=== PATIENT | female | born 1985 | race Caucasian/White ===

== ENCOUNTER 2020-12-06 07:45 | Inpatient (IN) ==
[2020-12-06] MEDS ORDERED: OXYTOCIN 30 UNITS/500 ML BAG IV PRN (09:33)
[2020-12-06] MEDS ORDERED: DINOPROSTONE 10 MG INSERT PV ONE (09:33)
[2020-12-06 10:12] LABS: Hematocrit (blood only) 32.8 % (37-47); Hemoglobin 11.3 g/dL (12.0-16.0); Mean Corpuscular Hemoglobin 33.5 pg (25-34); Mean Corpuscular Hgb Conc 34.5 g/dL (32-36); Mean Corpuscular Volume 97.3 fL (80-100); Mean Platelet Volume 9.8 fL (7.4-10.4); Platelet Count 231 K/uL (130-400); RDW Coefficient of Variation 12.8 % (11.5-14.5); RDW Standard Deviation 45.5 fL (36.4-46.3); Red Blood Count 3.37 M/uL (4.2-5.4)
[2020-12-06] MEDS ORDERED: FLUCONAZOLE 50 MG TAB PO ONE (10:24)
[2020-12-06 10:31] LABS: Albumin Level 2.7 gm/dl (3.4-5.0); BUN Creatinine Ratio 14.4 (10-20); Calcium 8.7 mg/dl (8.5-10.1); Creatinine Clr Calc Pharmacy 145.6 ml/min; Est GFR (Non-African American) 122.5 ml/min; Potassium 3.5 mmol/L (3.5-5.1)
[2020-12-06 10:34] LABS: Albumin Globulin Ratio 0.7 (0.9-2); Bilirubin,Total 0.2 mg/dl (0.2-1); Total Protein 6.7 gm/dl (6.4-8.2)
--- NOTE | 2020-12-06 10:41 | History & Physical Report ---
Date of Service December 06, 2020 Assessment & Plan (1) Post-term , 40-42 weeks of gestation: Plan: 35-year-old G1, P0 at 40 weeks and 2 days of gestation presenting for induction of labor, Vital signs stable afebrile, GBS negative, heart rate reassuring, Cervix unfavorable with a ballotable head, Plan to admit, monitor, labs, cervical ripening with Cervidil, Discussed the induction process, what to expect, risks of shoulder dystocia and in details, see HPI, All questions were answered. Admission and Anticipated Discharge Date Admission Date: December 06, 2020 History of Present Illness Primary Care Provider: NO PCP Patient is a 35-year-old G1, P0 at 40 weeks and 2 days of gestation who was scheduled for induction of labor for postdates. She denies contractions, leakage of fluid, vaginal bleeding. She reports good movements. Her has been uncomplicated, GBS is negative. She denies fever, chills, headaches, change in her vision, Covid symptoms. She received 2 doses of COVID-19 vaccine. Her last ultrasound was on December 12 and baby was measuring around 8 pounds 14 ounces. She states her baby has been measuring 2 weeks ahead. We did another bedside ultrasound today, fetus is vertex presentation, occiput posterior, placenta posterior, amniotic fluid volume is normal, heart rate 140s, multiple breathing episodes were seen, estimated weight is 4080 g. Patient is asking about recommendation when to do . We discussed a cog recommendation as elective if estimated weight is more than 5000 g. Discussed with the patient in details about the risk of shoulder dystocia with larger babies, clavicular fracture, nerve injuries, asphyxia/hypoxia. We also discussed risks of as a major surgery, bleeding, infection, injury to surrounding organs like bowels bladder ureters, scarring, adhesions, blood clots in his legs lungs and future risks of multiple C-sections. After long discussion patient decided to proceed with trial of vaginal . We discussed the induction process and what to expect from cervical ripening and labor in details. All questions were answered. Allergies Allergy/AdvReac Type Severity Reaction Status Date / Time amoxicillin Allergy Intermediate Hives Verified 12/06/20 08:07 Home Medications Medication Instructions Recorded Confirmed Type ferrous sulfate 325 mg (65 mg 650 mg PO DAILY 12/06/20 12/06/20 History iron) tablet (Iron (ferrous sulfate)) prenat.vits,shayla,[id number] 1 tab PO DAILY 12/06/20 12/06/20 History Patient History Medical History Anemia affecting in third trimester Surgical History History of colposcopy History of wisdom tooth extraction Family History Father Hyperlipidemia Father Hypertension Social History Smoking Status: Never smoker Second Hand Exposure: No; Do You Dip or Chew Tobacco: No; Tobacco Cessation Education Requested by Patient: No Hx Alcohol Use: No Hx Substance Use: No Preferred Language: Lao Communication Ability: Effective Visual Impairment: Limited Hearing Ability: Normal 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 History of abnormal Pap smears and LEEP procedure. Review of Systems as per Subjective / HPI Physical Exam Constitutional: well developed and well nourished Comfortable, not in acute distress Gastrointestinal (Abdomen): Inspection/Auscultation: abdomen normal to inspection and + abdomen distended (Gravid, Marquis 9 pounds) Genitourinary: normal external appearance Manual OB Exam: + cervical dilation 2 cm, + cervical effacement 40% and + station high (Ballotable head) OB Exam Monitor Tracing: + external uterine monitor used and + category I Results & Data ([facility]) Vital Signs (Past 12 Hours) Vital Signs Temp Pulse Resp BP 12/06/20 08:52 36.6 C 101 H 20 117/69 12/06/20 07:54 101 H 117/69 Laboratory Results Lab Results 12/06/20 12/06/20 12/06/20 Range/Units 08:25 08:25 09:56 WBC 9.60 (4.8-10.8) K/uL RBC 3.37 L (4.2-5.4) M/uL Hgb 11.3 L (12.0-16.0) g/dL Hct 32.8 L (37-47) % MCV 97.3 (80-100) fL MCH 33.5 (25-34) pg MCHC 34.5 (32-36) g/dL RDW Std Deviation 45.5 (36.4-46.3) fL RDW Coeff of Jose Cruz 12.8 (11.5-14.5) % Plt Count 231 (130-400) K/uL MPV 9.8 (7.4-10.4) fL Sodium (136-145) mmol/L Potassium (3.5-5.1) mmol/L Chloride (98-107) mmol/L Carbon Dioxide (21-32) mmol/L Anion Gap (3-11) BUN (7-18) mg/dl Creatinine (0.6-1.2) mg/dl Est Cr Clr Drug Dosing ml/min Est GFR ( Amer) ml/min Est GFR (Non-Af Amer) ml/min BUN/Creatinine Ratio (10-20) Glucose (70-99) mg/dl Calcium (8.5-10.1) mg/dl Total Bilirubin (0.2-1) mg/dl AST (15-37) U/L ALT (12-78) U/L Alkaline Phosphatase (45-117) U/L Total Protein (6.4-8.2) gm/dl Albumin (3.4-5.0) gm/dl Globulin (2.5-4.0) gm/dl Albumin/Globulin Ratio (0.9-2) COVID-19 [facility] SARS-CoV-2, RNA, NAAT NEGATIVE (NEGATIVE) 12/06/20 Range/Units 09:56 WBC (4.8-10.8) K/uL RBC (4.2-5.4) M/uL Hgb (12.0-16.0) g/dL Hct (37-47) % MCV (80-100) fL MCH (25-34) pg MCHC (32-36) g/dL RDW Std Deviation (36.4-46.3) fL RDW Coeff of Jose Cruz (11.5-14.5) % Plt Count (130-400) K/uL MPV (7.4-10.4) fL Sodium 138 (136-145) mmol/L Potassium 3.5 (3.5-5.1) mmol/L Chloride 109 H (98-107) mmol/L Carbon Dioxide 22 (21-32) mmol/L Anion Gap 7.0 (3-11) BUN 8 (7-18) mg/dl Creatinine 0.56 L (0.6-1.2) mg/dl Est Cr Clr Drug Dosing 145.6 ml/min Est GFR ( Amer) 142.0 ml/min Est GFR (Non-Af Amer) 122.5 ml/min BUN/Creatinine Ratio 14.4 (10-20) Glucose 80 (70-99) mg/dl Calcium 8.7 (8.5-10.1) mg/dl Total Bilirubin 0.2 (0.2-1) mg/dl AST 19 (15-37) U/L ALT 20 (12-78) U/L Alkaline Phosphatase 125 H (45-117) U/L Total Protein 6.7 (6.4-8.2) gm/dl Albumin 2.7 L (3.4-5.0) gm/dl Globulin 4.0 (2.5-4.0) gm/dl Albumin/Globulin Ratio 0.7 L (0.9-2) COVID-19 Eval Order SARS-CoV-2, RNA, NAAT (NEGATIVE)
[2020-12-06] MEDS ORDERED: BUTORPHANOL TARTRATE 1 MG/ML VIAL IV PRN (14:33)
[2020-12-06] MEDS: LACTATED RINGER'S 1,000 ML IV PRN (17:47)
[2020-12-06] MEDS ORDERED: ONDANSETRON INJ 2 MG/ML 2 ML VIAL IV PRN ×2 (22:37→23:35)
--- NOTE | 2020-12-06 22:37 | Obstetrical Progress Note ---
Date of Service December 06, 2020 Assessment & Plan Admission and Anticipated Discharge Date Admission Date: December 06, 2020 Subjective She needs reevaluated. She has been painful, received Stadol for pain at 6:30 PM and now pain is coming back. Vital signs stable afebrile, heart rate reassuring, category 1, [place] contractions every 2 to 4 minutes. Vaginal exam, cervix is 3 to 4 cm dilated, 50% effaced head at -3 station with a tight bag, She desires to eat something like before epidural, Discussed the findings and what to expect and offered her epidural and she accepted. Oxytocin augmentation as needed when the contractions spaced out, Continue to monitor closely, All questions were answered. Results & Data ([facility]) Vital Signs (Past 12 Hours) Vital Signs Temp Pulse Resp BP 12/06/20 22:34 97 H 135/78 12/06/20 19:10 36.7 C 18 12/06/20 19:03 81 115/72 12/06/20 15:45 36.7 C 85 16 115/73 12/06/20 12:20 36.8 C 16 12/06/20 12:19 80 102/67 12/06/20 10:52 88 20 119/68
[2020-12-06] MEDS ORDERED: ePHEDrine sulfate 50 MG/ML AMP ONE (23:12)
[2020-12-06] MEDS ORDERED: SODIUM CHLORIDE 0.9% INJ 10 ML VIAL ONE (23:12)
[2020-12-06] MEDS ORDERED: fentaNYL citrate 100 MCG/2 ML VIAL ONE (23:13)
[2020-12-06] MEDS ORDERED: BUPIVACAINE 0.25% 30 ML VIAL ONE (23:13)
[2020-12-06] MEDS ORDERED: fentaNYL 2MCG/ML ROPIVACAINE 1.25MG/ML 100 ML BAG EPI ONE (23:13)
[2020-12-06] MEDS ORDERED: NALOXONE HCL 1 MG in SODIUM CHLORIDE 0.9% 1000ML 1,000 ML IV PRN (23:35)
[2020-12-06] MEDS ORDERED: diphenhydrAMINE 50 MG/ML VIAL IV PRN (23:35)
[2020-12-06] MEDS ORDERED: NALOXONE HCL 0.4 MG/1 ML VIAL/CARP IV PRN (23:35)
[2020-12-06] MEDS ORDERED: NALBUPHINE HCL INJ 10 MG/ML AMP IV PRN (23:35)
[2020-12-06] MEDS ORDERED: ePHEDrine sulfate 50 MG/ML AMP IV PRN (23:35)
--- NOTE | 2020-12-06 23:37 | Anesthesiology Consultation ---
Date of Service December 06, 2020 Assessment & Plan (1) Encounter for pre-operative examination: Chart Review Chart Review: Patient NOT seen in Pre Admission Testing and Acceptable Risk for Labor Epidural Consults Requested none History Height/Weight Height: 5 ft 2 in Weight: 86.183 kg Allergies Allergy/AdvReac Type Severity Reaction Status Date / Time amoxicillin Allergy Intermediate Hives Verified 12/06/20 08:07 pineapple Allergy Hives Verified 12/06/20 22:48 Medications Home Medications Medication Instructions Recorded Confirmed Last Taken ferrous sulfate 325 mg (65 mg 650 mg PO DAILY 12/06/20 12/06/20 12/04/20 18:30 iron) tablet (Iron (ferrous sulfate)) prenat.vits,shayla,[id number]-[id number] 1 tab PO DAILY 12/06/20 12/06/20 12/04/20 18:30 Active Medications Generic Name Dose Route Start Last Admin Trade Name Freq PRN Reason Stop Dose Admin Butorphanol Tartrate 1 mg 12/06/20 14:33 12/06/20 17:42 Butorphanol Tartrate 1 Mg/Ml Vial IV 01/05/21 14:32 1 mg Q3HWA PRN Administration Pain Lactated Ringer's 1,000 mls @ 150 mls/hr 12/06/20 09:33 12/06/20 23:30 Lr IV 12/08/20 09:32 150 mls/hr .[id number] PRN Infusion L&D Protocol Protocol Past Medical History Medical History (Updated 12/06/20 @ 23:36 by Christopher Craig MD) Anemia affecting in third trimester Encounter for pre-operative examination Exercise / Class Metabolic Activity II 4-5 Yardwork/Stairs/Walk up hill Past Family History Family History Father Hyperlipidemia Father Hypertension Past Surgical History Surgical History History of colposcopy History of wisdom tooth extraction Past Anesthesia History No Hx of Anesthesia Complications and No Family Hx of Anesthesia Complications History of PONV No Hx of PONV and No Hx of Motion Sickness Social History Smoking Status: Never smoker Do You Dip or Chew Tobacco: No Hx Alcohol Use: No Hx Substance Use: No substance use type: does not use Physical Exam Vital Signs Last Vital Signs Temp 36.7 C 12/06/20 22:35 Pulse 107 H 12/07/20 00:20 Resp 18 12/06/20 22:35 BP 117/70 12/07/20 00:20 Pulse Ox 96 12/07/20 00:18 Testing Laboratory Results 12/06/20 09:56 12/06/20 09:56 Blood Type B Positive 12/06/20 19:07 Antibody Screen NEGATIVE 12/06/20 19:07
[2020-12-07] MEDS ORDERED: OXYTOCIN 30 UNITS/500 ML BAG IV PRN (00:26)
[2020-12-07] MEDS: fentaNYL 2MCG/ML ROPIVACAINE 1.25MG/ML 100 ML BAG EPI PRN ×3 (00:32→15:39)
[2020-12-07] MEDS: LACTATED RINGER'S 1,000 ML IV PRN ×3 (02:37→15:40)
--- NOTE | 2020-12-07 07:45 | Obstetrical Progress Note ---
Date of Service December 07, 2020 Assessment & Plan Admission and Anticipated Discharge Date Admission Date: December 06, 2020 Subjective Patient is reevaluated She is comfortable with epidural FHR had been categ I [place] ctxs q 2-3 min, Pitocin is at 9 miu/min VE: 4/ 80%/ -2, bulging bag, AROM'd, clear fluid Continue to monitor closely Will sign out to Dr Slaughter Results & Data ([facility]) Vital Signs (Past 12 Hours) Vital Signs Temp Pulse Resp BP Pulse Ox 12/07/20 07:38 91 H 97 12/07/20 07:37 80 103/57 L 12/07/20 07:33 88 96 12/07/20 07:28 80 97 12/07/20 07:24 80 94 12/07/20 07:23 79 95 12/07/20 07:22 89 116/63 12/07/20 07:18 93 H 97 12/07/20 07:13 90 98 12/07/20 07:08 109 H 98 12/07/20 07:07 98 H 114/69 12/07/20 07:06 103 H 120/67 12/07/20 07:03 95 H 97 12/07/20 07:01 90 94 12/07/20 06:58 84 95 12/07/20 06:53 105 H 96 12/07/20 06:50 102 H 110/69 12/07/20 06:48 92 H 95 12/07/20 06:43 93 H 95 12/07/20 06:38 86 95 12/07/20 06:35 99 H 108/62 12/07/20 06:33 83 96 12/07/20 06:32 83 94 12/07/20 06:28 90 95 12/07/20 06:24 87 94 12/07/20 06:23 91 H 95 12/07/20 06:22 93 H 116/69 12/07/20 06:18 85 94 12/07/20 06:16 86 94 12/07/20 06:13 90 95 12/07/20 06:11 86 93 12/07/20 06:08 95 H 96 12/07/20 06:05 101 H 122/72 12/07/20 06:03 108 H 97 12/07/20 05:58 89 95 12/07/20 05:57 84 93 12/07/20 05:53 98 H 95 12/07/20 05:52 93 H 115/72 12/07/20 05:51 84 94 12/07/20 05:48 89 94 12/07/20 05:46 86 94 12/07/20 05:43 83 95 12/07/20 05:39 89 94 12/07/20 05:38 86 94 12/07/20 05:36 100 H 124/69 12/07/20 05:34 92 H 94 12/07/20 05:33 92 H 18 95 12/07/20 05:28 93 H 94 12/07/20 05:27 102 H 94 12/07/20 05:23 99 H 94 12/07/20 05:20 84 113/66 12/07/20 05:19 83 94 12/07/20 05:18 108 H 95 12/07/20 05:13 86 96 12/07/20 05:12 89 94 12/07/20 05:08 101 H 95 12/07/20 05:06 86 94 12/07/20 05:05 96 H 111/66 12/07/20 05:03 95 H 94 12/07/20 05:00 89 94 12/07/20 04:58 91 H 94 12/07/20 04:54 86 94 12/07/20 04:53 100 H 95 12/07/20 04:50 104 H 18 111/63 12/07/20 04:48 90 93 12/07/20 04:43 105 H 94 12/07/20 04:41 98 H 94 12/07/20 04:38 89 94 12/07/20 04:37 97 H 107/66 12/07/20 04:36 95 H 94 12/07/20 04:33 96 H 95 12/07/20 04:30 91 H 94 12/07/20 04:28 96 H 95 12/07/20 04:23 92 H 96 12/07/20 04:21 93 H 126/70 12/07/20 04:18 103 H 18 95 12/07/20 04:17 86 94 12/07/20 04:13 94 H 95 12/07/20 04:10 90 94 12/07/20 04:08 89 95 12/07/20 04:07 94 H 117/70 12/07/20 04:03 94 H 96 12/07/20 03:58 95 H 96 12/07/20 03:53 99 H 97 12/07/20 03:52 36.8 C 18 12/07/20 03:51 96 H 166/75 H 12/07/20 03:48 97 H 100 12/07/20 03:43 98 H 97 12/07/20 03:38 90 93 12/07/20 03:36 81 107/59 L 12/07/20 03:34 89 94 12/07/20 03:33 87 94 12/07/20 03:28 88 94 12/07/20 03:26 84 94 12/07/20 03:23 88 95 12/07/20 03:21 89 107/59 L 94 12/07/20 03:18 84 93 12/07/20 03:13 77 94 12/07/20 03:09 78 94 12/07/20 03:08 77 94 12/07/20 03:06 80 98/56 L 12/07/20 03:03 83 94 12/07/20 03:00 18 12/07/20 02:58 89 94 12/07/20 02:53 91 H 95 12/07/20 02:51 98 H 94 12/07/20 02:50 92 H 93/54 L 12/07/20 02:48 84 94 12/07/20 02:44 91 H 94 12/07/20 02:43 97 H 94 12/07/20 02:39 87 94 12/07/20 02:38 89 95 12/07/20 02:37 89 99/57 L 12/07/20 02:33 98 H 96 12/07/20 02:30 18 12/07/20 02:28 81 94 12/07/20 02:23 80 94 12/07/20 02:22 76 90/54 L 12/07/20 02:21 84 94 12/07/20 02:18 81 94 12/07/20 02:14 78 94 12/07/20 02:13 82 94 12/07/20 02:08 87 94 12/07/20 02:06 99 H 94 12/07/20 02:05 94 H 93/55 L 12/07/20 02:03 98 H 94 12/07/20 02:00 92 H 94 12/07/20 01:58 95 H 94 12/07/20 01:53 94 H 94 12/07/20 01:50 100 H 100/58 L 12/07/20 01:48 91 H 94 12/07/20 01:47 87 94 12/07/20 01:43 90 95 12/07/20 01:39 92 H 94 12/07/20 01:38 86 94 12/07/20 01:35 96 H 99/53 L 12/07/20 01:34 88 94 12/07/20 01:33 88 95 12/07/20 01:28 89 94 12/07/20 01:23 88 94 12/07/20 01:22 92 H 94 12/07/20 01:20 88 93/54 L 12/07/20 01:18 88 94 12/07/20 01:17 92 H 94 12/07/20 01:13 85 94 12/07/20 01:11 96 H 94 12/07/20 01:08 92 H 94 12/07/20 01:07 98 H 98/54 L 12/07/20 01:03 89 95 12/07/20 01:00 18 12/07/20 00:58 87 93 12/07/20 00:53 91 H 94 12/07/20 00:52 91 H 94 12/07/20 00:50 92 H 96/51 L 12/07/20 00:48 94 H 95 12/07/20 00:46 93 H 94 12/07/20 00:45 18 12/07/20 00:43 90 95 12/07/20 00:38 95 H 96 12/07/20 00:34 94 H 104/59 L 12/07/20 00:33 116 H 96 12/07/20 00:32 94 H 117/69 12/07/20 00:30 102 H 18 116/76 12/07/20 00:28 108 H 117/69 96 12/07/20 00:26 106 H 118/74 12/07/20 00:25 18 12/07/20 00:24 107 H 116/66 12/07/20 00:23 131 H 97 12/07/20 00:20 107 H 117/70 12/07/20 00:18 110 H 96 12/07/20 00:13 114 H 98 12/07/20 00:08 118 H 97 12/07/20 00:03 110 H 98 12/07/20 00:02 111 H 86 L 12/06/20 23:58 110 H 97 12/06/20 23:56 110 H 92 12/06/20 23:53 103 H 97 12/06/20 23:49 111 H 91 12/06/20 23:48 114 H 97 12/06/20 23:43 99 H 96 12/06/20 22:35 36.7 C 18 12/06/20 22:34 97 H 135/78
[2020-12-07] MEDS ORDERED: NURSING L&D Epidural Breakthrough Pain Update ONE (09:40)
[2020-12-07] MEDS ORDERED: BUPIVACAINE 0.25% 30 ML VIAL ONE (09:47)
[2020-12-07] MEDS ORDERED: SODIUM CHLORIDE 0.9% INJ 10 ML VIAL ONE (09:48)
[2020-12-07] MEDS ORDERED: fentaNYL 2MCG/ML ROPIVACAINE 1.25MG/ML 100 ML BAG EPI PRN (09:55)
--- NOTE | 2020-12-07 11:19 | Labor Progress Brief Note ---
Date of Service December 07, 2020 Subjective Patient comfortable on epidural, no complaints at this time Assessment & Plan (1) Post-term , 40-42 weeks of gestation: Plan: Continue oxytocin for augmentation, anticipate Admission and Anticipated Discharge Date Admission Date: December 06, 2020 Physical Exam Physical Exam: FHT: baseline 130-135, mod variability, + accels, variable decels, Chloride: q1-2 min pit on 18 munits/hr Cx: 5/80/-2 Luong inserted by RN Results & Data ([facility]) Vital Signs (Past 12 Hours) Vital Signs Temp Pulse Resp BP Pulse Ox 12/07/20 11:13 100 H 100 12/07/20 11:08 92 H 99 12/07/20 11:03 102 H 98 12/07/20 10:59 37.2 C 101 H 20 122/72 12/07/20 10:58 90 96 12/07/20 10:53 86 97 12/07/20 10:48 87 95 12/07/20 10:45 89 117/70 12/07/20 10:43 88 96 12/07/20 10:38 93 H 97 12/07/20 10:33 92 H 97 12/07/20 10:29 92 H 119/74 12/07/20 10:28 82 96 12/07/20 10:23 81 97 12/07/20 10:18 93 H 97 12/07/20 10:14 82 121/72 12/07/20 10:13 84 97 12/07/20 10:08 99 H 98 12/07/20 10:03 80 96 12/07/20 09:59 85 120/74 12/07/20 09:58 77 128/73 96 12/07/20 09:56 109 H 90/52 L 12/07/20 09:54 98 H 110/72 12/07/20 09:53 111 H 98 12/07/20 09:52 100 H 113/74 12/07/20 09:48 89 97 12/07/20 09:43 90 97 12/07/20 09:38 81 97 12/07/20 09:35 96 H 124/78 12/07/20 09:33 91 H 97 12/07/20 09:28 88 96 12/07/20 09:23 83 96 10/23/21 09:21 87 120/75 12/07/20 09:18 84 96 12/07/20 09:13 84 94 12/07/20 09:08 90 96 12/07/20 09:07 36.9 C 103 H 20 148/85 H 12/07/20 09:03 91 H 97 12/07/20 08:58 84 97 12/07/20 08:53 76 95 12/07/20 08:50 77 95/53 L 12/07/20 08:48 86 97 12/07/20 08:43 79 96 12/07/20 08:38 72 96 12/07/20 08:35 75 95/53 L 12/07/20 08:33 74 96 12/07/20 08:28 76 96 12/07/20 08:23 84 96 12/07/20 08:21 77 102/58 L 12/07/20 08:18 79 97 12/07/20 08:13 81 96 12/07/20 08:08 80 96 12/07/20 08:07 75 100/56 L 12/07/20 08:03 80 97 12/07/20 07:59 77 94 12/07/20 07:58 83 96 12/07/20 07:57 81 97/58 L 12/07/20 07:54 75 94 12/07/20 07:53 76 97 12/07/20 07:48 82 97 12/07/20 07:43 80 96 12/07/20 07:38 91 H 97 12/07/20 07:37 80 103/57 L 12/07/20 07:33 88 96 12/07/20 07:28 80 97 12/07/20 07:24 80 94 12/07/20 07:23 79 95 12/07/20 07:22 89 116/63 12/07/20 07:18 93 H 97 12/07/20 07:13 90 98 12/07/20 07:08 109 H 98 12/07/20 07:07 36.7 C 98 H 20 114/69 12/07/20 07:06 103 H 120/67 12/07/20 07:03 95 H 97 12/07/20 07:01 90 94 12/07/20 06:58 84 95 12/07/20 06:53 105 H 96 12/07/20 06:50 102 H 110/69 12/07/20 06:48 92 H 95 12/07/20 06:43 93 H 95 12/07/20 06:38 86 95 12/07/20 06:35 99 H 108/62 12/07/20 06:33 83 96 12/07/20 06:32 83 94 12/07/20 06:28 90 95 12/07/20 06:24 87 94 12/07/20 06:23 91 H 95 12/07/20 06:22 93 H 116/69 12/07/20 06:18 85 94 12/07/20 06:16 86 94 12/07/20 06:13 90 95 12/07/20 06:11 86 93 12/07/20 06:08 95 H 96 12/07/20 06:05 101 H 122/72 12/07/20 06:03 108 H 97 12/07/20 05:58 89 95 12/07/20 05:57 84 93 12/07/20 05:53 98 H 95 12/07/20 05:52 93 H 115/72 12/07/20 05:51 84 94 12/07/20 05:48 89 94 12/07/20 05:46 86 94 12/07/20 05:43 83 95 12/07/20 05:39 89 94 12/07/20 05:38 86 94 12/07/20 05:36 100 H 124/69 12/07/20 05:34 92 H 94 12/07/20 05:33 92 H 18 95 12/07/20 05:28 93 H 94 12/07/20 05:27 102 H 94 12/07/20 05:23 99 H 94 12/07/20 05:20 84 113/66 12/07/20 05:19 83 94 12/07/20 05:18 108 H 95 12/07/20 05:13 86 96 12/07/20 05:12 89 94 12/07/20 05:08 101 H 95 12/07/20 05:06 86 94 12/07/20 05:05 96 H 111/66 12/07/20 05:03 95 H 94 12/07/20 05:00 89 94 12/07/20 04:58 91 H 94 12/07/20 04:54 86 94 12/07/20 04:53 100 H 95 12/07/20 04:50 104 H 18 111/63 12/07/20 04:48 90 93 12/07/20 04:43 105 H 94 12/07/20 04:41 98 H 94 12/07/20 04:38 89 94 12/07/20 04:37 97 H 107/66 12/07/20 04:36 95 H 94 12/07/20 04:33 96 H 95 12/07/20 04:30 91 H 94 12/07/20 04:28 96 H 95 12/07/20 04:23 92 H 96 12/07/20 04:21 93 H 126/70 12/07/20 04:18 103 H 18 95 12/07/20 04:17 86 94 12/07/20 04:13 94 H 95 12/07/20 04:10 90 94 12/07/20 04:08 89 95 12/07/20 04:07 94 H 117/70 12/07/20 04:03 94 H 96 12/07/20 03:58 95 H 96 12/07/20 03:53 99 H 97 12/07/20 03:52 36.8 C 18 12/07/20 03:51 96 H 166/75 H 12/07/20 03:48 97 H 100 12/07/20 03:43 98 H 97 12/07/20 03:38 90 93 12/07/20 03:36 81 107/59 L 12/07/20 03:34 89 94 12/07/20 03:33 87 94 12/07/20 03:28 88 94 12/07/20 03:26 84 94 12/07/20 03:23 88 95 12/07/20 03:21 89 107/59 L 94 12/07/20 03:18 84 93 12/07/20 03:13 77 94 12/07/20 03:09 78 94 12/07/20 03:08 77 94 12/07/20 03:06 80 98/56 L 12/07/20 03:03 83 94 12/07/20 03:00 18 12/07/20 02:58 89 94 12/07/20 02:53 91 H 95 12/07/20 02:51 98 H 94 12/07/20 02:50 92 H 93/54 L 12/07/20 02:48 84 94 12/07/20 02:44 91 H 94 12/07/20 02:43 97 H 94 12/07/20 02:39 87 94 12/07/20 02:38 89 95 12/07/20 02:37 89 99/57 L 12/07/20 02:33 98 H 96 12/07/20 02:30 18 12/07/20 02:28 81 94 12/07/20 02:23 80 94 12/07/20 02:22 76 90/54 L 12/07/20 02:21 84 94 12/07/20 02:18 81 94 12/07/20 02:14 78 94 12/07/20 02:13 82 94 12/07/20 02:08 87 94 12/07/20 02:06 99 H 94 12/07/20 02:05 94 H 93/55 L 12/07/20 02:03 98 H 94 12/07/20 02:00 92 H 94 12/07/20 01:58 95 H 94 12/07/20 01:53 94 H 94 12/07/20 01:50 100 H 100/58 L 12/07/20 01:48 91 H 94 12/07/20 01:47 87 94 12/07/20 01:43 90 95 12/07/20 01:39 92 H 94 12/07/20 01:38 86 94 12/07/20 01:35 96 H 99/53 L 12/07/20 01:34 88 94 12/07/20 01:33 88 95 12/07/20 01:28 89 94 12/07/20 01:23 88 94 12/07/20 01:22 92 H 94 12/07/20 01:20 88 93/54 L 12/07/20 01:18 88 94 12/07/20 01:17 92 H 94 12/07/20 01:13 85 94 12/07/20 01:11 96 H 94 12/07/20 01:08 92 H 94 12/07/20 01:07 98 H 98/54 L 12/07/20 01:03 89 95 12/07/20 01:00 18 12/07/20 00:58 87 93 12/07/20 00:53 91 H 94 12/07/20 00:52 91 H 94 12/07/20 00:50 92 H 96/51 L 12/07/20 00:48 94 H 95 12/07/20 00:46 93 H 94 12/07/20 00:45 18 12/07/20 00:43 90 95 12/07/20 00:38 95 H 96 12/07/20 00:34 94 H 104/59 L 12/07/20 00:33 116 H 96 12/07/20 00:32 94 H 117/69 12/07/20 00:30 102 H 18 116/76 12/07/20 00:28 108 H 117/69 96 12/07/20 00:26 106 H 118/74 12/07/20 00:25 18 12/07/20 00:24 107 H 116/66 12/07/20 00:23 131 H 97 12/07/20 00:20 107 H 117/70 12/07/20 00:18 110 H 96 12/07/20 00:13 114 H 98 12/07/20 00:08 118 H 97 12/07/20 00:03 110 H 98 12/07/20 00:02 111 H 86 L 12/06/20 23:58 110 H 97 12/06/20 23:56 110 H 92 12/06/20 23:53 103 H 97 12/06/20 23:49 111 H 91 12/06/20 23:48 114 H 97 12/06/20 23:43 99 H 96
--- NOTE | 2020-12-07 15:14 | Labor Progress Brief Note ---
Date of Service December 07, 2020 Subjective Patient comfortable on epidural, increasing pressure. Just checked by nurse Assessment & Plan (1) Post-term , 40-42 weeks of gestation: Plan: Continue oxytocin for augmentation, anticipate Admission and Anticipated Discharge Date Admission Date: December 06, 2020 Physical Exam Physical Exam: FHT: baseline 130-135, mod variability, + accels, no decels, cat 1 tracing [place]: q2-3 min pit at 20 units Cx: 7-8/90%/-2 check by RN Results & Data ([facility]) Vital Signs (Past 12 Hours) Vital Signs Temp Pulse Resp BP Pulse Ox 12/07/20 15:08 104 H 98 12/07/20 15:03 87 98 12/07/20 14:59 36.8 C 96 H 20 103/63 12/07/20 14:58 101 H 98 12/07/20 14:53 116 H 97 12/07/20 14:48 114 H 97 12/07/20 14:45 113 H 137/82 12/07/20 14:43 106 H 95 12/07/20 14:38 104 H 95 12/07/20 14:33 100 H 96 12/07/20 14:31 107 H 126/80 12/07/20 14:29 106 H 94 12/07/20 14:28 98 H 95 12/07/20 14:23 98 H 93 12/07/20 14:18 105 H 94 12/07/20 14:14 112 H 126/81 12/07/20 14:13 109 H 96 12/07/20 14:08 106 H 94 12/07/20 14:06 99 H 94 12/07/20 14:03 102 H 95 12/07/20 14:00 106 H 123/79 12/07/20 13:58 105 H 96 12/07/20 13:54 91 H 94 12/07/20 13:53 101 H 95 12/07/20 13:48 93 H 95 12/07/20 13:44 100 H 115/74 12/07/20 13:43 99 H 94 12/07/20 13:38 105 H 97 12/07/20 13:33 102 H 96 12/07/20 13:31 92 H 119/77 12/07/20 13:28 102 H 95 12/07/20 13:23 101 H 97 12/07/20 13:18 103 H 96 12/07/20 13:15 107 H 126/79 12/07/20 13:13 106 H 96 12/07/20 13:08 102 H 98 12/07/20 13:03 95 H 97 12/07/20 13:00 36.7 C 103 H 20 123/79 12/07/20 12:58 100 H 98 12/07/20 12:53 97 H 98 12/07/20 12:48 98 H 97 12/07/20 12:44 95 H 118/75 12/07/20 12:43 91 H 98 12/07/20 12:38 97 H 97 12/07/20 12:33 91 H 97 12/07/20 12:30 86 127/72 12/07/20 12:28 95 H 100 12/07/20 12:23 103 H 99 12/07/20 12:18 91 H 98 12/07/20 12:14 97 H 120/71 12/07/20 12:13 98 H 98 12/07/20 12:08 88 99 12/07/20 12:03 94 H 99 12/07/20 11:59 86 119/68 12/07/20 11:58 77 99 12/07/20 11:53 86 99 12/07/20 11:48 78 99 12/07/20 11:44 78 102/61 12/07/20 11:43 92 H 99 12/07/20 11:38 95 H 100 12/07/20 11:33 99 H 99 12/07/20 11:30 77 105/61 12/07/20 11:28 89 97 12/07/20 11:23 85 96 12/07/20 11:18 84 98 12/07/20 11:13 100 H 100 12/07/20 11:08 92 H 99 12/07/20 11:03 102 H 98 12/07/20 10:59 37.2 C 101 H 20 122/72 12/07/20 10:58 90 96 12/07/20 10:53 86 97 12/07/20 10:48 87 95 12/07/20 10:45 89 117/70 12/07/20 10:43 88 96 12/07/20 10:38 93 H 97 12/07/20 10:33 92 H 97 12/07/20 10:29 92 H 119/74 12/07/20 10:28 82 96 12/07/20 10:23 81 97 12/07/20 10:18 93 H 97 12/07/20 10:14 82 121/72 12/07/20 10:13 84 97 12/07/20 10:08 99 H 98 12/07/20 10:03 80 96 12/07/20 09:59 85 120/74 12/07/20 09:58 77 128/73 96 12/07/20 09:56 109 H 90/52 L 12/07/20 09:54 98 H 110/72 12/07/20 09:53 111 H 98 12/07/20 09:52 100 H 113/74 12/07/20 09:48 89 97 12/07/20 09:43 90 97 12/07/20 09:38 81 97 12/07/20 09:35 96 H 124/78 12/07/20 09:33 91 H 97 12/07/20 09:28 88 96 12/07/20 09:23 83 96 12/07/20 09:21 87 120/75 12/07/20 09:18 84 96 12/07/20 09:13 84 94 12/07/20 09:08 90 96 12/07/20 09:07 36.9 C 103 H 20 148/85 H 12/07/20 09:03 91 H 97 12/07/20 08:58 84 97 12/07/20 08:53 76 95 12/07/20 08:50 77 95/53 L 12/07/20 08:48 86 97 12/07/20 08:43 79 96 12/07/20 08:38 72 96 12/07/20 08:35 75 95/53 L 12/07/20 08:33 74 96 12/07/20 08:28 76 96 12/07/20 08:23 84 96 12/07/20 08:21 77 102/58 L 12/07/20 08:18 79 97 12/07/20 08:13 81 96 12/07/20 08:08 80 96 12/07/20 08:07 75 100/56 L 12/07/20 08:03 80 97 12/07/20 07:59 77 94 12/07/20 07:58 83 96 12/07/20 07:57 81 97/58 L 12/07/20 07:54 75 94 12/07/20 07:53 76 97 12/07/20 07:48 82 97 12/07/20 07:43 80 96 12/07/20 07:38 91 H 97 12/07/20 07:37 80 103/57 L 12/07/20 07:33 88 96 12/07/20 07:28 80 97 12/07/20 07:24 80 94 12/07/20 07:23 79 95 12/07/20 07:22 89 116/63 12/07/20 07:18 93 H 97 12/07/20 07:13 90 98 12/07/20 07:08 109 H 98 12/07/20 07:07 36.7 C 98 H 20 114/69 12/07/20 07:06 103 H 120/67 12/07/20 07:03 95 H 97 12/07/20 07:01 90 94 12/07/20 06:58 84 95 12/07/20 06:53 105 H 96 12/07/20 06:50 102 H 110/69 12/07/20 06:48 92 H 95 12/07/20 06:43 93 H 95 12/07/20 06:38 86 95 12/07/20 06:35 99 H 108/62 12/07/20 06:33 83 96 12/07/20 06:32 83 94 12/07/20 06:28 90 95 12/07/20 06:24 87 94 12/07/20 06:23 91 H 95 12/07/20 06:22 93 H 116/69 12/07/20 06:18 85 94 12/07/20 06:16 86 94 12/07/20 06:13 90 95 12/07/20 06:11 86 93 12/07/20 06:08 95 H 96 12/07/20 06:05 101 H 122/72 12/07/20 06:03 108 H 97 12/07/20 05:58 89 95 12/07/20 05:57 84 93 12/07/20 05:53 98 H 95 12/07/20 05:52 93 H 115/72 12/07/20 05:51 84 94 12/07/20 05:48 89 94 12/07/20 05:46 86 94 12/07/20 05:43 83 95 12/07/20 05:39 89 94 12/07/20 05:38 86 94 12/07/20 05:36 100 H 124/69 12/07/20 05:34 92 H 94 12/07/20 05:33 92 H 18 95 12/07/20 05:28 93 H 94 12/07/20 05:27 102 H 94 12/07/20 05:23 99 H 94 12/07/20 05:20 84 113/66 12/07/20 05:19 83 94 12/07/20 05:18 108 H 95 12/07/20 05:13 86 96 12/07/20 05:12 89 94 12/07/20 05:08 101 H 95 12/07/20 05:06 86 94 12/07/20 05:05 96 H 111/66 12/07/20 05:03 95 H 94 12/07/20 05:00 89 94 12/07/20 04:58 91 H 94 12/07/20 04:54 86 94 12/07/20 04:53 100 H 95 12/07/20 04:50 104 H 18 111/63 12/07/20 04:48 90 93 12/07/20 04:43 105 H 94 12/07/20 04:41 98 H 94 12/07/20 04:38 89 94 12/07/20 04:37 97 H 107/66 12/07/20 04:36 95 H 94 12/07/20 04:33 96 H 95 12/07/20 04:30 91 H 94 12/07/20 04:28 96 H 95 12/07/20 04:23 92 H 96 12/07/20 04:21 93 H 126/70 12/07/20 04:18 103 H 18 95 12/07/20 04:17 86 94 12/07/20 04:13 94 H 95 12/07/20 04:10 90 94 12/07/20 04:08 89 95 12/07/20 04:07 94 H 117/70 12/07/20 04:03 94 H 96 12/07/20 03:58 95 H 96 12/07/20 03:53 99 H 97 12/07/20 03:52 36.8 C 18 12/07/20 03:51 96 H 166/75 H 12/07/20 03:48 97 H 100 12/07/20 03:43 98 H 97 12/07/20 03:38 90 93 12/07/20 03:36 81 107/59 L 12/07/20 03:34 89 94 12/07/20 03:33 87 94 12/07/20 03:28 88 94 12/07/20 03:26 84 94 12/07/20 03:23 88 95 12/07/20 03:21 89 107/59 L 94 12/07/20 03:18 84 93 12/07/20 03:13 77 94
[2020-12-07] MEDS ORDERED: ACETAMINOPHEN 500 MG TAB PO ONE (18:17)
[2020-12-07] MEDS ORDERED: GENTAMICIN CONSULT ACTIVE PRN (18:22)
--- NOTE | 2020-12-07 18:27 | Labor Progress Brief Note ---
Date of Service December 07, 2020 Subjective Called by RN about maternal fever 38C, tachycardia. Assessment & Plan (1) Chorioamnionitis: Plan: Start IV abx for suspected chorio,. PCN allergy. Gent 5mg/kg 1 time dose, clina 900mg q8h 1gr Tylenol for maternal fever Plan: Anticipate Admission and Anticipated Discharge Date Admission Date: December 06, 2020 Physical Exam Physical Exam: FHT: baseline 160, mod variability, +accles, variable decels [place]: q2-3 min Cx: ant lip/100/0 per RN check Results & Data ([facility]) Vital Signs (Past 12 Hours) Vital Signs Temp Pulse Resp BP Pulse Ox 12/07/20 18:23 116 H 98 12/07/20 18:18 119 H 98 12/07/20 18:15 112 H 125/80 12/07/20 18:13 116 H 97 12/07/20 18:08 131 H 97 12/07/20 18:03 128 H 96 12/07/20 18:00 38.0 C H 122 H 20 121/83 12/07/20 17:58 119 H 96 12/07/20 17:53 113 H 96 12/07/20 17:48 116 H 96 12/07/20 17:45 117 H 120/78 12/07/20 17:43 111 H 96 12/07/20 17:38 111 H 95 12/07/20 17:33 109 H 96 12/07/20 17:30 115 H 120/80 12/07/20 17:28 117 H 97 12/07/20 17:23 106 H 95 12/07/20 17:19 114 H 94 12/07/20 17:18 108 H 95 12/07/20 17:14 108 H 118/78 12/07/20 17:13 102 H 95 12/07/20 17:08 109 H 95 12/07/20 17:07 100 H 94 12/07/20 17:03 96 H 96 12/07/20 17:00 108 H 118/71 12/07/20 16:58 99 H 96 12/07/20 16:53 107 H 97 12/07/20 16:48 110 H 98 12/07/20 16:45 36.5 C 97 H 20 129/80 12/07/20 16:43 118 H 97 12/07/20 16:38 103 H 97 12/07/20 16:33 102 H 97 12/07/20 16:29 113 H 123/77 12/07/20 16:28 101 H 96 12/07/20 16:23 98 H 95 12/07/20 16:18 111 H 98 12/07/20 16:15 100 H 133/83 12/07/20 16:13 102 H 95 12/07/20 16:08 99 H 98 12/07/20 16:03 106 H 97 12/07/20 16:00 100 H 123/78 12/07/20 15:58 98 H 99 12/07/20 15:53 100 H 98 12/07/20 15:48 102 H 98 12/07/20 15:45 106 H 127/81 12/07/20 15:43 101 H 97 12/07/20 15:38 104 H 97 12/07/20 15:33 106 H 97 12/07/20 15:32 117 H 122/75 12/07/20 15:28 98 H 98 12/07/20 15:23 92 H 97 12/07/20 15:18 96 H 98 12/07/20 15:13 98 H 97 12/07/20 15:08 104 H 98 12/07/20 15:03 87 98 12/07/20 14:59 36.8 C 96 H 20 103/63 12/07/20 14:58 101 H 98 12/07/20 14:53 116 H 97 12/07/20 14:48 114 H 97 12/07/20 14:45 113 H 137/82 12/07/20 14:43 106 H 95 12/07/20 14:38 104 H 95 12/07/20 14:33 100 H 96 12/07/20 14:31 107 H 126/80 12/07/20 14:29 106 H 94 12/07/20 14:28 98 H 95 12/07/20 14:23 98 H 93 12/07/20 14:18 105 H 94 12/07/20 14:14 112 H 126/81 12/07/20 14:13 109 H 96 12/07/20 14:08 106 H 94 12/07/20 14:06 99 H 94 12/07/20 14:03 102 H 95 12/07/20 14:00 106 H 123/79 12/07/20 13:58 105 H 96 12/07/20 13:54 91 H 94 12/07/20 13:53 101 H 95 12/07/20 13:48 93 H 95 12/07/20 13:44 100 H 115/74 12/07/20 13:43 99 H 94 12/07/20 13:38 105 H 97 12/07/20 13:33 102 H 96 12/07/20 13:31 92 H 119/77 12/07/20 13:28 102 H 95 12/07/20 13:23 101 H 97 12/07/20 13:18 103 H 96 12/07/20 13:15 107 H 126/79 12/07/20 13:13 106 H 96 12/07/20 13:08 102 H 98 12/07/20 13:03 95 H 97 12/07/20 13:00 36.7 C 103 H 20 123/79 12/07/20 12:58 100 H 98 12/07/20 12:53 97 H 98 12/07/20 12:48 98 H 97 12/07/20 12:44 95 H 118/75 12/07/20 12:43 91 H 98 12/07/20 12:38 97 H 97 12/07/20 12:33 91 H 97 12/07/20 12:30 86 127/72 12/07/20 12:28 95 H 100 12/07/20 12:23 103 H 99 12/07/20 12:18 91 H 98 12/07/20 12:14 97 H 120/71 12/07/20 12:13 98 H 98 12/07/20 12:08 88 99 12/07/20 12:03 94 H 99 12/07/20 11:59 86 119/68 12/07/20 11:58 77 99 12/07/20 11:53 86 99 12/07/20 11:48 78 99 12/07/20 11:44 78 102/61 12/07/20 11:43 92 H 99 12/07/20 11:38 95 H 100 12/07/20 11:33 99 H 99 12/07/20 11:30 77 105/61 12/07/20 11:28 89 97 12/07/20 11:23 85 96 12/07/20 11:18 84 98 12/07/20 11:13 100 H 100 12/07/20 11:08 92 H 99 12/07/20 11:03 102 H 98 12/07/20 10:59 37.2 C 101 H 20 122/72 12/07/20 10:58 90 96 12/07/20 10:53 86 97 12/07/20 10:48 87 95 12/07/20 10:45 89 117/70 12/07/20 10:43 88 96 12/07/20 10:38 93 H 97 12/07/20 10:33 92 H 97 12/07/20 10:29 92 H 119/74 12/07/20 10:28 82 96 12/07/20 10:23 81 97 12/07/20 10:18 93 H 97 12/07/20 10:14 82 121/72 12/07/20 10:13 84 97 12/07/20 10:08 99 H 98 12/07/20 10:03 80 96 12/07/20 09:59 85 120/74 12/07/20 09:58 77 128/73 96 12/07/20 09:56 109 H 90/52 L 12/07/20 09:54 98 H 110/72 12/07/20 09:53 111 H 98 12/07/20 09:52 100 H 113/74 12/07/20 09:48 89 97 12/07/20 09:43 90 97 12/07/20 09:38 81 97 12/07/20 09:35 96 H 124/78 12/07/20 09:33 91 H 97 12/07/20 09:28 88 96 12/07/20 09:23 83 96 12/07/20 09:21 87 120/75 12/07/20 09:18 84 96 12/07/20 09:13 84 94 12/07/20 09:08 90 96 12/07/20 09:07 36.9 C 103 H 20 148/85 H 12/07/20 09:03 91 H 97 12/07/20 08:58 84 97 12/07/20 08:53 76 95 12/07/20 08:50 77 95/53 L 12/07/20 08:48 86 97 12/07/20 08:43 79 96 12/07/20 08:38 72 96 12/07/20 08:35 75 95/53 L 12/07/20 08:33 74 96 12/07/20 08:28 76 96 12/07/20 08:23 84 96 12/07/20 08:21 77 102/58 L 12/07/20 08:18 79 97 12/07/20 08:13 81 96 12/07/20 08:08 80 96 12/07/20 08:07 75 100/56 L 12/07/20 08:03 80 97 12/07/20 07:59 77 94 12/07/20 07:58 83 96 12/07/20 07:57 81 97/58 L 12/07/20 07:54 75 94 12/07/20 07:53 76 97 12/07/20 07:48 82 97 12/07/20 07:43 80 96 12/07/20 07:38 91 H 97 12/07/20 07:37 80 103/57 L 12/07/20 07:33 88 96 12/07/20 07:28 80 97 12/07/20 07:24 80 94 12/07/20 07:23 79 95 12/07/20 07:22 89 116/63 12/07/20 07:18 93 H 97 12/07/20 07:13 90 98 12/07/20 07:08 109 H 98 12/07/20 07:07 36.7 C 98 H 20 114/69 12/07/20 07:06 103 H 120/67 12/07/20 07:03 95 H 97 12/07/20 07:01 90 94 12/07/20 06:58 84 95 12/07/20 06:53 105 H 96 12/07/20 06:50 102 H 110/69 12/07/20 06:48 92 H 95 12/07/20 06:43 93 H 95 12/07/20 06:38 86 95 12/07/20 06:35 99 H 108/62 12/07/20 06:33 83 96 12/07/20 06:32 83 94 12/07/20 06:28 90 95
[2020-12-07] MEDS ORDERED: VANCOMYCIN CONSULT ACTIVE PRN (18:44)
[2020-12-07] MEDS ORDERED: GENTAMICIN SULFATE 320 MG in DEXTROSE 5% 100 ML IV ONE (18:45)
[2020-12-07] MEDS ORDERED: CLINDAMYCIN 900 MG in DEXTROSE 5% 50 ML IV SCH (19:00)
[2020-12-07] MEDS ORDERED: VANCOMYCIN HCL 1,750 MG in SODIUM CHLORIDE 0.9% 500 ML IV ONE (19:00)
[2020-12-07] MEDS ORDERED: PHENYLEPHRINE 100MCG/ML 5ML SYR ONE (19:41)
[2020-12-07] MEDS ORDERED: LIDOCAINE 2%/EPINEPHRINE 1:200,000 20 ML SDV ONE (19:41)
[2020-12-07] MEDS ORDERED: ONDANSETRON INJ 2 MG/ML 2 ML VIAL ONE (19:41)
[2020-12-07] MEDS ORDERED: MoRPHine SULFATE PF 1 MG/ML 10 ML AMP/VIAL ONE (19:42)
[2020-12-07] MEDS ORDERED: CLINDAMYCIN 900 MG in DEXTROSE 5% 50 ML IV STA (19:44)
--- NOTE | 2020-12-07 19:44 | Labor Progress Brief Note ---
Date of Service December 07, 2020 Subjective Comfortable on epidural, no complaints Assessment & Plan (1) Chorioamnionitis: Plan: IV Vanc, gent Add clinda 900 mg IV x1 dose for CS (2) Failure to progress in labor: Plan: Failure to progress/defend. head -2/-3 station. Significant caput to 0 station Patient counseled about Cat II tracing and recommend primary C section. Patient agrees. See op report for counseling note. (3) Category II heart rate tracing during maternal care in third trimester: Admission and Anticipated Discharge Date Admission Date: December 06, 2020 Physical Exam Physical Exam: FHT: baseline 170-175, mod variability no accels, no decels, persisinta cat II, [place] q2-3 min Cx: 9/100/-2 caput ++ to 0 station Results & Data ([facility]) Vital Signs (Past 12 Hours) Vital Signs Temp Pulse Resp BP Pulse Ox 12/07/20 19:33 137 H 97 12/07/20 19:29 107 H 122/70 12/07/20 19:28 106 H 96 12/07/20 19:23 114 H 96 12/07/20 19:18 106 H 97 12/07/20 19:14 104 H 122/74 12/07/20 19:13 106 H 97 12/07/20 19:08 105 H 98 12/07/20 19:03 106 H 98 12/07/20 19:00 36.7 C 109 H 20 122/76 12/07/20 18:58 107 H 98 12/07/20 18:53 111 H 97 12/07/20 18:48 119 H 100 12/07/20 18:45 113 H 121/82 12/07/20 18:43 116 H 99 12/07/20 18:41 117 H 89 L 12/07/20 18:38 120 H 100 12/07/20 18:33 111 H 98 12/07/20 18:30 113 H 130/80 12/07/20 18:28 116 H 98 12/07/20 18:23 116 H 98 12/07/20 18:18 119 H 98 12/07/20 18:15 112 H 125/80 12/07/20 18:13 116 H 97 12/07/20 18:08 131 H 97 12/07/20 18:03 128 H 96 12/07/20 18:00 38.0 C H 122 H 20 121/83 12/07/20 17:58 119 H 96 12/07/20 17:53 113 H 96 12/07/20 17:48 116 H 96 12/07/20 17:45 117 H 120/78 12/07/20 17:43 111 H 96 12/07/20 17:38 111 H 95 12/07/20 17:33 109 H 96 12/07/20 17:30 115 H 120/80 12/07/20 17:28 117 H 97 12/07/20 17:23 106 H 95 12/07/20 17:19 114 H 94 12/07/20 17:18 108 H 95 12/07/20 17:14 108 H 118/78 12/07/20 17:13 102 H 95 12/07/20 17:08 109 H 95 12/07/20 17:07 100 H 94 12/07/20 17:03 96 H 96 12/07/20 17:00 108 H 118/71 12/07/20 16:58 99 H 96 12/07/20 16:53 107 H 97 12/07/20 16:48 110 H 98 12/07/20 16:45 36.5 C 97 H 20 129/80 12/07/20 16:43 118 H 97 12/07/20 16:38 103 H 97 12/07/20 16:33 102 H 97 12/07/20 16:29 113 H 123/77 12/07/20 16:28 101 H 96 12/07/20 16:23 98 H 95 12/07/20 16:18 111 H 98 12/07/20 16:15 100 H 133/83 12/07/20 16:13 102 H 95 12/07/20 16:08 99 H 98 12/07/20 16:03 106 H 97 12/07/20 16:00 100 H 123/78 12/07/20 15:58 98 H 99 12/07/20 15:53 100 H 98 12/07/20 15:48 102 H 98 12/07/20 15:45 106 H 127/81 12/07/20 15:43 101 H 97 12/07/20 15:38 104 H 97 12/07/20 15:33 106 H 97 12/07/20 15:32 117 H 122/75 12/07/20 15:28 98 H 98 12/07/20 15:23 92 H 97 12/07/20 15:18 96 H 98 12/07/20 15:13 98 H 97 12/07/20 15:08 104 H 98 12/07/20 15:03 87 98 12/07/20 14:59 36.8 C 96 H 20 103/63 12/07/20 14:58 101 H 98 12/07/20 14:53 116 H 97 12/07/20 14:48 114 H 97 12/07/20 14:45 113 H 137/82 12/07/20 14:43 106 H 95 12/07/20 14:38 104 H 95 12/07/20 14:33 100 H 96 12/07/20 14:31 107 H 126/80 12/07/20 14:29 106 H 94 12/07/20 14:28 98 H 95 12/07/20 14:23 98 H 93 12/07/20 14:18 105 H 94 12/07/20 14:14 112 H 126/81 12/07/20 14:13 109 H 96 12/07/20 14:08 106 H 94 12/07/20 14:06 99 H 94 12/07/20 14:03 102 H 95 12/07/20 14:00 106 H 123/79 12/07/20 13:58 105 H 96 12/07/20 13:54 91 H 94 12/07/20 13:53 101 H 95 12/07/20 13:48 93 H 95 12/07/20 13:44 100 H 115/74 12/07/20 13:43 99 H 94 12/07/20 13:38 105 H 97 12/07/20 13:33 102 H 96 12/07/20 13:31 92 H 119/77 12/07/20 13:28 102 H 95 12/07/20 13:23 101 H 97 12/07/20 13:18 103 H 96 12/07/20 13:15 107 H 126/79 12/07/20 13:13 106 H 96 12/07/20 13:08 102 H 98 12/07/20 13:03 95 H 97 12/07/20 13:00 36.7 C 103 H 20 123/79 12/07/20 12:58 100 H 98 12/07/20 12:53 97 H 98 12/07/20 12:48 98 H 97 12/07/20 12:44 95 H 118/75 12/07/20 12:43 91 H 98 12/07/20 12:38 97 H 97 12/07/20 12:33 91 H 97 12/07/20 12:30 86 127/72 12/07/20 12:28 95 H 100 12/07/20 12:23 103 H 99 12/07/20 12:18 91 H 98 12/07/20 12:14 97 H 120/71 12/07/20 12:13 98 H 98 12/07/20 12:08 88 99 12/07/20 12:03 94 H 99 12/07/20 11:59 86 119/68 12/07/20 11:58 77 99 12/07/20 11:53 86 99 12/07/20 11:48 78 99 12/07/20 11:44 78 102/61 12/07/20 11:43 92 H 99 12/07/20 11:38 95 H 100 12/07/20 11:33 99 H 99 12/07/20 11:30 77 105/61 12/07/20 11:28 89 97 12/07/20 11:23 85 96 12/07/20 11:18 84 98 12/07/20 11:13 100 H 100 12/07/20 11:08 92 H 99 12/07/20 11:03 102 H 98 12/07/20 10:59 37.2 C 101 H 20 122/72 12/07/20 10:58 90 96 12/07/20 10:53 86 97 12/07/20 10:48 87 95 12/07/20 10:45 89 117/70 12/07/20 10:43 88 96 12/07/20 10:38 93 H 97 12/07/20 10:33 92 H 97 12/07/20 10:29 92 H 119/74 12/07/20 10:28 82 96 12/07/20 10:23 81 97 12/07/20 10:18 93 H 97 12/07/20 10:14 82 121/72 12/07/20 10:13 84 97 12/07/20 10:08 99 H 98 12/07/20 10:03 80 96 12/07/20 09:59 85 120/74 21 09:58 77 128/73 96 12/07/20 09:56 109 H 90/52 L 12/07/20 09:54 98 H 110/72 21 09:53 111 H 98 12/07/20 09:52 100 H 113/74 12/07/ 09:48 89 97 12/07/20 09:43 90 97 12/07/20 09:38 81 97 12/07/20 09:35 96 H 124/78 12/07/20 09:33 91 H 97 12/07/20 09:28 88 96 12/07/20 09:23 83 96 12/07/20 09:21 87 120/75 12/07/20 09:18 84 96 12/07/20 09:13 84 94 12/07/20 09:08 90 96 12/07/20 09:07 36.9 C 103 H 20 148/85 H 12/07/20 09:03 91 H 97 12/07/20 08:58 84 97 12/07/20 08:53 76 95 12/07/20 08:50 77 95/53 L 12/07/20 08:48 86 97 12/07/20 08:43 79 96 12/07/20 08:38 72 96 12/07/20 08:35 75 95/53 L 12/07/20 08:33 74 96 12/07/20 08:28 76 96 12/07/20 08:23 84 96 12/07/20 08:21 77 102/58 L 12/07/20 08:18 79 97 12/07/20 08:13 81 96 21 08:08 80 96 21 08:07 75 100/56 L 12/07/20 08:03 80 97 21 07:59 77 94 21 07:58 83 96 21 07:57 81 97/58 L 12/07/21 07:54 75 94 12/07/21 07:53 76 97 21 07:48 82 97 12/07/20 07:43 80 96
[2020-12-07] MEDS ORDERED: OXYTOCIN 10 UNITS/ML VIAL ONE (20:29)
[2020-12-07] MEDS ORDERED: CARBOPROST TROMETHAMINE 250 MCG/ML AMPUL ONE (20:30)
[2020-12-07] MEDS ORDERED: METHYLERGONOVINE MALEATE 0.2 MG/ML AMP ONE ×2 (20:30→21:02)
[2020-12-07] MEDS: VANCOMYCIN HCL 1,000 MG in SODIUM CHLORIDE 0.9% 250 ML IV SCH (20:32)
[2020-12-07 20:36] LABS: Base Excess Cord Venous Blood -0.5 mEq/L (-7.7-1.9); Cord Venous Blood HCO3 23 mmol/L (18.4-26.8); Cord Venous Blood PCO2 36 mmHg (30.4-57.2); Cord Venous Blood PO2 26 mmHg (14.1-43.3); Cord Venous Blood pH 7.42 (7.20-7.44)
--- NOTE | 2020-12-07 20:47 | Post Operative Brief Note ---
Immediate Post Op Note v1 Date of Surgery December 07, 2020 Pre & Post Diagnosis Operation Date: 12/07/20 19:30 Pre-Op Diagnosis: 1.) Category II FHT Tracing 2.) Chorio 3.) Failure to Progress Post-Op Diagnosis: Same as Pre Op 4. Uterine atony 5. PPH 1000mls I identified the patient and participated in the time-out.: Yes Procedure Operation Date: 12/07/20 19:30 <No data on this case meets the specified criteria> Surgeon Amada Slaughter MD, PhD Oven Technician location and measurement technician x2 Estimated Blood Loss 1,000 Findings See Below A liveborn male at 2018, weight 3634g APGARs 8/9. Intact placenta, 3 vessel cord, cord pH pending Fluids See anaesthesia record Specimens Placenta Drains Luong Catheter Complications None Disposition Accompanied Patient To Recovery: Yes Disposition: L&D Overlapping Procedure I was present for: the critical portions of procedure.
[2020-12-07] MEDS ORDERED: diphenhydrAMINE Capsule 25 MG CAP PO PRN (20:50)
[2020-12-07] MEDS ORDERED: MAGNESIUM HYDROXIDE SUSP 30 ML UDC PO PRN ×2 (20:50→21:27)
[2020-12-07] MEDS ORDERED: diphenhydrAMINE 50 MG/ML VIAL IV PRN ×2 (20:50→21:05)
[2020-12-07] MEDS ORDERED: SENNA 8.6 MG TAB PO PRN ×2 (20:50→21:27)
[2020-12-07] MEDS ORDERED: PROMETHAZINE HCL 25 MG in SODIUM CHLORIDE 0.9% 50 ML IV PRN (20:50)
[2020-12-07] MEDS ORDERED: ONDANSETRON INJ 2 MG/ML 2 ML VIAL IV PRN (20:50)
[2020-12-07] MEDS ORDERED: DIPHTHERIA/TETANUS/PERTUSSIS 0.5 ML SYR/VIAL IM ONE (20:50)
[2020-12-07] MEDS ORDERED: BENZOCAINE 20% AER SPR 82.5 GM CAN EXT PRN ×2 (20:50→21:27)
[2020-12-07] MEDS ORDERED: HYDROCORTISONE ACETATE 25 MG SUPP PR PRN ×2 (20:50→21:27)
[2020-12-07] MEDS ORDERED: SUPERCREAM 0.870% 15 GM JAR EXT PRN ×2 (20:50→21:27)
[2020-12-07] MEDS ORDERED: KETOROLAC 30 MG/ML VIAL IV PRN (20:50)
--- NOTE | 2020-12-07 20:53 | Operative Report ---
Post Operative Report Pre & Post Diagnosis Operation Date: 12/07/20 19:30 Pre-Op Diagnosis: 1. 35 year old 40 3/7 days 2. Failure to progress/failure to decent 3. Persistent Category II FHT Tracing 4. Suspected Chorioamnionitis Post-Op Diagnosis: Same as Pre Op 5. Uterine atony 6. hemorrhage 1000mls I identified the patient and participated in the time-out.: Yes Procedure Operation Date: 12/07/20 19:30 Primary lower transverse section Surgeon Amada Slaughter MD, PhD Veterinary Pathologist a/c tech x2 Estimated Blood Loss 1,000 Findings See Below Liveborn male delivered at 2018 hours, head not engaged in pelvis, OP position, weight 363 4 g or 8 pounds 0 ounces with Apgars 8/9. Intact placenta with three-vessel cord. Cord pH pending. Normal-appearing uterus, normal-appearing bilateral fallopian tubes and ovaries seen at time of surgery Fluids See anesthesia record Specimens Placenta Drains Luong catheter Anesthesia Type Labor Epidural Complications None Indications Persistent category 2 tracing, failure to progress/failure to descend and suspected chorioamnionitis Description of Procedure section was recommended. Risks, benefits and alternatives were discussed including but not limited to infection, bleeding that may require blood products or hysterectomy for life saving measures, injury to surrounding organs including but not limited to bowel, bladder, ureters, tubes and ovaries and/or the baby. Should injury occur it could require longer/additional surgery to repair. Patient was also counselled about risk of DVT/PE, and injury to infant during delivery. The patient stated understanding and desired to proceed. All questions were answered posed by patient. Prior to being taken to the OR, gentamicin 5 mg/kg, clindamycin 900 mg, and vancomycin was given during the surgical procedure. The patient was taken to the operating room where regional anesthesia was found to be adequate. Prior to monitors being removed FHR was 180 bpm with no decelerations. She was then prepared and draped in the usual sterile fashion in the dorsal supine position with a leftward tilt displacing the uterus. Luong was draining to gravity. SCDs were on bilateral lower extremities. A pfannenstiel skin incision was then made with the scalpel and carried through to the underlying layer of fascia. The fascia was incised in the midline and the incision extended laterally with the Hardwick scissors. The superior aspect of the facial incision was then grasped with the Breanne clamps, elevated and the underlying rectus muscles dissected off bluntly. Attention was then turned to the inferior aspect of this incision which in a similar fashion was grasped, elevated with the Breanne clamps and the rectus muscle dissected off bluntly. The rectus muscles were in the midline. The peritoneum identified, grasped with the pick-ups and entered sharply with the Metzenbaum scissors. The peritoneal incision was then extended superiorly and inferiorly with good visualization of the bladder. The bladder blade was inserted and the vesicouterine peritoneum was identified, grasped with the pick-ups, and entered sharply with Metzenbaum scissors. This incision was then extended laterally and the bladder flap created digitally and the bladder blade was reinserted. The lower uterine segment was identified and incised in a transverse fashion with the scalpel. The uterine incision was then extended bluntly laterally. Artificial rupture of membranes demonstrated clear fluid. The bladder blade was removed. The fetus was in cephalic, OP presentation. The 's head was noted to not be well engaged in patients pelvis and delivered atraumatically. The anterior shoulders were delivered followed by the posterior shoulders then the remainder of the body. The infant's mouth and nose were bulb suctioned. The umbilical cord was clamped times two and cut. The infant was handed off to the awaiting peds staff. A male was delivered weighing 3634 g with APGARS of 8 at 1 minute and 9 at 5 minutes. The was taken to the recovery room for transition. Cord blood gases were obtained. The placenta was removed with manually. 30 units of oxytocin were added to IVF and allowed to run freely. The uterus was exteriorized and cleared of all clots and debris. There was ongoing uterine atony noted. Patient was given 1 dose of Methergine IM. The uterine incision was inspected and found to be without any extensions and was repaired with 0 Vicryl) in a running, locked fashion. A second imbricating layer was performed. Upon inspection, the repaired hysterotomy was found to be hemostatic. The uterus was firm and returned to the abdomen. The gutters were cleared of all clots and debris. The peritoneum was closed with 2-0 Vicryl in a running fashion. The fascia was reapproximated with 0 Vicryl in a running fashion. The subcutaneous layer was closed with 2-0 Vicryl in a running fashion. The skin was closed in a subcuticular fashion with 4-0 vicryl. Dermabond and pressure bandage was applied over incision. The patient tolerated the procedure well. Sponge, lap and needle counts were correct x4. The patient was taken to the recovery room in stable condition. I attest to the content of the Intraoperative Record and any orders documented therein. Any exceptions are noted below.
[2020-12-07] MEDS ORDERED: METHYLERGONOVINE MALEATE 0.2 MG/ML AMP IM STA (20:56)
[2020-12-07] MEDS ORDERED: LACTATED RINGER'S 1,000 ML IV SCH (21:00)
[2020-12-07] MEDS ORDERED: NALOXONE HCL 1 MG in SODIUM CHLORIDE 0.9% 1000ML 1,000 ML IV PRN (21:05)
[2020-12-07] MEDS ORDERED: NALOXONE HCL 0.08 MG in SYRINGE 1.8 ML IV PRN (21:05)
[2020-12-07] MEDS ORDERED: NALOXONE HCL 0.4 MG/1 ML VIAL/CARP IV PRN (21:05)
[2020-12-07] MEDS ORDERED: HYDROmorphone INJ 0.5 MG/0.5 ML SYR IV PRN (21:05)
[2020-12-07] MEDS ORDERED: ePHEDrine sulfate 50 MG/ML AMP IV PRN (21:05)
[2020-12-07] MEDS ORDERED: NALBUPHINE HCL INJ 10 MG/ML AMP IV PRN (21:05)
[2020-12-07] MEDS ORDERED: MoRPHine SULFATE 2 MG/ML CARP IV PRN (21:05)
[2020-12-07] MEDS ORDERED: MoRPHine SULFATE PF 1 MG/ML 10 ML AMP/VIAL EPI ONE (21:05)
[2020-12-07] MEDS ORDERED: LACTATED RINGER'S 500 ML IV PRN (21:05)
--- NOTE | 2020-12-07 21:07 | Anesthesia Procedure Note ---
Date of Service December 07, 2020 Anesthesia Post Epidural Note Vital Signs Vital Signs: Temp Pulse Resp BP Pulse Ox 36.7 C 90 20 113/73 97 12/07/20 19:00 12/07/20 21:05 12/07/20 19:00 12/07/20 21:05 12/07/20 21:04 Pain Intensity Bilateral Back: Pain Intensity: 0 Notes Mental Status: alert / awake / arousable and participated in evaluation Patient Amnestic to Procedure: No Nausea / Vomiting: adequately controlled Pain: adequately controlled Airway Patency, RR, SpO2: stable & adequate BP & HR: stable & adequate Hydration State: stable & adequate Neuraxial Anesthesia: was administered and sensory block is resolving Anesthetic Complications: no major complications apparent and Pt Satisfied with anesthetic care Epidural: Removed without complications and With tip intact
--- NOTE | 2020-12-07 21:07 | Anesthesiology Progress Note ---
Date of Service December 07, 2020 Anesthesia Post Procedure Vital Signs Vital Signs: Temp Pulse Resp BP Pulse Ox 12/07/20 21:05 90 113/73 12/07/20 21:04 87 97 12/07/20 20:59 88 96 12/07/20 20:54 89 111/69 96 12/07/20 19:53 117 H 96 12/07/20 19:48 121 H 97 12/07/20 19:45 122 H 123/77 12/07/20 19:43 118 H 96 12/07/20 19:38 116 H 97 12/07/20 19:33 137 H 97 12/07/20 19:29 107 H 122/70 12/07/20 19:28 106 H 96 12/07/20 19:23 114 H 96 12/07/20 19:18 106 H 97 12/07/20 19:14 104 H 122/74 12/07/20 19:13 106 H 97 12/07/20 19:08 105 H 98 12/07/20 19:03 106 H 98 12/07/20 19:00 36.7 C 109 H 20 122/76 12/07/20 18:58 107 H 98 12/07/20 18:53 111 H 97 12/07/20 18:48 119 H 100 12/07/20 18:45 113 H 121/82 12/07/20 18:43 116 H 99 12/07/20 18:41 117 H 89 L 12/07/20 18:38 120 H 100 12/07/20 18:33 111 H 98 12/07/20 18:30 113 H 130/80 12/07/20 18:28 116 H 98 12/07/20 18:23 116 H 98 12/07/20 18:18 119 H 98 12/07/20 18:15 112 H 125/80 12/07/20 18:13 116 H 97 12/07/20 18:08 131 H 97 12/07/20 18:03 128 H 96 12/07/20 18:00 38.0 C H 122 H 20 121/83 12/07/20 17:58 119 H 96 12/07/20 17:53 113 H 96 12/07/20 17:48 116 H 96 12/07/20 17:45 117 H 120/78 12/07/20 17:43 111 H 96 12/07/20 17:38 111 H 95 12/07/20 17:33 109 H 96 12/07/20 17:30 115 H 120/80 12/07/20 17:28 117 H 97 12/07/20 17:23 106 H 95 12/07/20 17:19 114 H 94 12/07/20 17:18 108 H 95 12/07/20 17:14 108 H 118/78 12/07/20 17:13 102 H 95 12/07/20 17:08 109 H 95 12/07/20 17:07 100 H 94 12/07/20 17:03 96 H 96 12/07/20 17:00 108 H 118/71 12/07/20 16:58 99 H 96 12/07/20 16:53 107 H 97 12/07/20 16:48 110 H 98 12/07/20 16:45 36.5 C 97 H 20 129/80 12/07/20 16:43 118 H 97 12/07/20 16:38 103 H 97 12/07/20 16:33 102 H 97 12/07/20 16:29 113 H 123/77 12/07/20 16:28 101 H 96 12/07/20 16:23 98 H 95 12/07/20 16:18 111 H 98 12/07/20 16:15 100 H 133/83 12/07/20 16:13 102 H 95 12/07/20 16:08 99 H 98 12/07/20 16:03 106 H 97 12/07/20 16:00 100 H 123/78 12/07/20 15:58 98 H 99 12/07/20 15:53 100 H 98 12/07/20 15:48 102 H 98 12/07/20 15:45 106 H 127/81 12/07/20 15:43 101 H 97 12/07/20 15:38 104 H 97 12/07/20 15:33 106 H 97 12/07/20 15:32 117 H 122/75 12/07/20 15:28 98 H 98 12/07/20 15:23 92 H 97 12/07/20 15:18 96 H 98 12/07/20 15:13 98 H 97 12/07/20 15:08 104 H 98 12/07/20 15:03 87 98 12/07/20 14:59 36.8 C 96 H 20 103/63 12/07/20 14:58 101 H 98 12/07/20 14:53 116 H 97 12/07/20 14:48 114 H 97 12/07/20 14:45 113 H 137/82 12/07/20 14:43 106 H 95 12/07/20 14:38 104 H 95 12/07/20 14:33 100 H 96 12/07/20 14:31 107 H 126/80 12/07/20 14:29 106 H 94 12/07/20 14:28 98 H 95 12/07/20 14:23 98 H 93 12/07/20 14:18 105 H 94 12/07/20 14:14 112 H 126/81 12/07/20 14:13 109 H 96 12/07/20 14:08 106 H 94 12/07/20 14:06 99 H 94 12/07/20 14:03 102 H 95 12/07/20 14:00 106 H 123/79 12/07/20 13:58 105 H 96 12/07/20 13:54 91 H 94 12/07/20 13:53 101 H 95 12/07/20 13:48 93 H 95 12/07/20 13:44 100 H 115/74 12/07/20 13:43 99 H 94 12/07/20 13:38 105 H 97 12/07/20 13:33 102 H 96 12/07/20 13:31 92 H 119/77 12/07/20 13:28 102 H 95 12/07/20 13:23 101 H 97 12/07/20 13:18 103 H 96 12/07/20 13:15 107 H 126/79 12/07/20 13:13 106 H 96 12/07/20 13:08 102 H 98 12/07/20 13:03 95 H 97 12/07/20 13:00 36.7 C 103 H 20 123/79 12/07/20 12:58 100 H 98 12/07/20 12:53 97 H 98 12/07/20 12:48 98 H 97 12/07/20 12:44 95 H 118/75 12/07/20 12:43 91 H 98 12/07/20 12:38 97 H 97 12/07/20 12:33 91 H 97 12/07/20 12:30 86 127/72 12/07/20 12:28 95 H 100 12/07/20 12:23 103 H 99 12/07/20 12:18 91 H 98 12/07/20 12:14 97 H 120/71 12/07/20 12:13 98 H 98 12/07/20 12:08 88 99 12/07/20 12:03 94 H 99 12/07/20 11:59 86 119/68 12/07/20 11:58 77 99 12/07/20 11:53 86 99 12/07/20 11:48 78 99 12/07/20 11:44 78 102/61 12/07/20 11:43 92 H 99 12/07/20 11:38 95 H 100 12/07/20 11:33 99 H 99 12/07/20 11:30 77 105/61 12/07/20 11:28 89 97 12/07/20 11:23 85 96 12/07/20 11:18 84 98 12/07/20 11:13 100 H 100 12/07/20 11:08 92 H 99 12/07/20 11:03 102 H 98 12/07/20 10:59 37.2 C 101 H 20 122/72 12/07/20 10:58 90 96 12/07/20 10:53 86 97 12/07/20 10:48 87 95 12/07/20 10:45 89 117/70 12/07/20 10:43 88 96 12/07/20 10:38 93 H 97 12/07/20 10:33 92 H 97 12/07/20 10:29 92 H 119/74 12/07/20 10:28 82 96 12/07/20 10:23 81 97 12/07/20 10:18 93 H 97 12/07/20 10:14 82 121/72 12/07/20 10:13 84 97 12/07/20 10:08 99 H 98 12/07/20 10:03 80 96 12/07/20 09:59 85 120/74 12/07/20 09:58 77 128/73 96 12/07/20 09:56 109 H 90/52 L 12/07/20 09:54 98 H 110/72 12/07/20 09:53 111 H 98 12/07/20 09:52 100 H 113/74 12/07/20 09:48 89 97 12/07/20 09:43 90 97 12/07/20 09:38 81 97 12/07/20 09:35 96 H 124/78 12/07/20 09:33 91 H 97 12/07/20 09:28 88 96 12/07/20 09:23 83 96 12/07/20 09:21 87 120/75 12/07/20 09:18 84 96 12/07/20 09:13 84 94 12/07/20 09:08 90 96 12/07/20 09:07 36.9 C 103 H 20 148/85 H 12/07/20 09:03 91 H 97 12/07/20 08:58 84 97 12/07/20 08:53 76 95 12/07/20 08:50 77 95/53 L 12/07/20 08:48 86 97 12/07/20 08:43 79 96 12/07/20 08:38 72 96 12/07/20 08:35 75 95/53 L 12/07/20 08:33 74 96 12/07/20 08:28 76 96 12/07/20 08:23 84 96 12/07/20 08:21 77 102/58 L 12/07/20 08:18 79 97 12/07/20 08:13 81 96 12/07/20 08:08 80 96 12/07/20 08:07 75 100/56 L 12/07/20 08:03 80 97 12/07/20 07:59 77 94 12/07/20 07:58 83 96 12/07/20 07:57 81 97/58 L 12/07/20 07:54 75 94 12/07/20 07:53 76 97 12/07/20 07:48 82 97 12/07/20 07:43 80 96 12/07/20 07:38 91 H 97 12/07/20 07:37 80 103/57 L 12/07/20 07:33 88 96 12/07/20 07:28 80 97 12/07/20 07:24 80 94 12/07/20 07:23 79 95 12/07/20 07:22 89 116/63 12/07/20 07:18 93 H 97 12/07/20 07:13 90 98 12/07/20 07:08 109 H 98 10/23/21 07:07 36.7 C 98 H 20 114/69 12/07/20 07:06 103 H 120/67 12/07/20 07:03 95 H 97 12/07/20 07:01 90 94 12/07/20 06:58 84 95 12/07/20 06:53 105 H 96 12/07/20 06:50 102 H 110/69 12/07/20 06:48 92 H 95 12/07/20 06:43 93 H 95 12/07/20 06:38 86 95 12/07/20 06:35 99 H 108/62 12/07/20 06:33 83 96 12/07/20 06:32 83 94 12/07/20 06:28 90 95 12/07/20 06:24 87 94 12/07/20 06:23 91 H 95 12/07/20 06:22 93 H 116/69 12/07/20 06:18 85 94 12/07/20 06:16 86 94 12/07/20 06:13 90 95 12/07/20 06:11 86 93 12/07/20 06:08 95 H 96 12/07/20 06:05 101 H 122/72 12/07/20 06:03 108 H 97 12/07/20 05:58 89 95 12/07/20 05:57 84 93 12/07/20 05:53 98 H 95 12/07/20 05:52 93 H 115/72 12/07/20 05:51 84 94 12/07/20 05:48 89 94 12/07/20 05:46 86 94 12/07/20 05:43 83 95 12/07/20 05:39 89 94 12/07/20 05:38 86 94 12/07/20 05:36 100 H 124/69 12/07/20 05:34 92 H 94 12/07/20 05:33 92 H 18 95 12/07/20 05:28 93 H 94 12/07/20 05:27 102 H 94 12/07/20 05:23 99 H 94 12/07/20 05:20 84 113/66 12/07/20 05:19 83 94 12/07/20 05:18 108 H 95 12/07/20 05:13 86 96 12/07/20 05:12 89 94 12/07/20 05:08 101 H 95 12/07/20 05:06 86 94 12/07/20 05:05 96 H 111/66 12/07/20 05:03 95 H 94 12/07/20 05:00 89 94 12/07/20 04:58 91 H 94 12/07/20 04:54 86 94 12/07/20 04:53 100 H 95 12/07/20 04:50 104 H 18 111/63 12/07/20 04:48 90 93 12/07/20 04:43 105 H 94 12/07/20 04:41 98 H 94 12/07/20 04:38 89 94 12/07/20 04:37 97 H 107/66 12/07/20 04:36 95 H 94 12/07/20 04:33 96 H 95 12/07/20 04:30 91 H 94 12/07/20 04:28 96 H 95 12/07/20 04:23 92 H 96 12/07/20 04:21 93 H 126/70 12/07/20 04:18 103 H 18 95 12/07/20 04:17 86 94 12/07/20 04:13 94 H 95 12/07/20 04:10 90 94 12/07/20 04:08 89 95 12/07/20 04:07 94 H 117/70 12/07/20 04:03 94 H 96 12/07/20 03:58 95 H 96 12/07/20 03:53 99 H 97 12/07/20 03:52 36.8 C 18 12/07/20 03:51 96 H 166/75 H 12/07/20 03:48 97 H 100 12/07/20 03:43 98 H 97 12/07/20 03:38 90 93 12/07/20 03:36 81 107/59 L 12/07/20 03:34 89 94 12/07/20 03:33 87 94 12/07/20 03:28 88 94 12/07/20 03:26 84 94 12/07/20 03:23 88 95 12/07/20 03:21 89 107/59 L 94 12/07/20 03:18 84 93 12/07/20 03:13 77 94 12/07/20 03:09 78 94 12/07/20 03:08 77 94 12/07/20 03:06 80 98/56 L 12/07/20 03:03 83 94 12/07/20 03:00 18 12/07/20 02:58 89 94 12/07/20 02:53 91 H 95 12/07/20 02:51 98 H 94 12/07/20 02:50 92 H 93/54 L 12/07/20 02:48 84 94 12/07/20 02:44 91 H 94 12/07/20 02:43 97 H 94 12/07/20 02:39 87 94 12/07/20 02:38 89 95 12/07/20 02:37 89 99/57 L 12/07/20 02:33 98 H 96 12/07/20 02:30 18 12/07/20 02:28 81 94 12/07/20 02:23 80 94 12/07/20 02:22 76 90/54 L 12/07/20 02:21 84 94 12/07/20 02:18 81 94 12/07/20 02:14 78 94 12/07/20 02:13 82 94 12/07/20 02:08 87 94 12/07/20 02:06 99 H 94 12/07/20 02:05 94 H 93/55 L 12/07/20 02:03 98 H 94 12/07/20 02:00 92 H 94 12/07/20 01:58 95 H 94 12/07/20 01:53 94 H 94 12/07/20 01:50 100 H 100/58 L 12/07/20 01:48 91 H 94 12/07/20 01:47 87 94 12/07/20 01:43 90 95 12/07/20 01:39 92 H 94 12/07/20 01:38 86 94 12/07/20 01:35 96 H 99/53 L 12/07/20 01:34 88 94 12/07/20 01:33 88 95 12/07/20 01:28 89 94 12/07/20 01:23 88 94 12/07/20 01:22 92 H 94 12/07/20 01:20 88 93/54 L 12/07/20 01:18 88 94 12/07/20 01:17 92 H 94 12/07/20 01:13 85 94 12/07/20 01:11 96 H 94 12/07/20 01:08 92 H 94 12/07/20 01:07 98 H 98/54 L 12/07/20 01:03 89 95 12/07/20 01:00 18 12/07/20 00:58 87 93 12/07/20 00:53 91 H 94 12/07/20 00:52 91 H 94 12/07/20 00:50 92 H 96/51 L 12/07/20 00:48 94 H 95 12/07/20 00:46 93 H 94 12/07/20 00:45 18 12/07/20 00:43 90 95 12/07/20 00:38 95 H 96 12/07/20 00:34 94 H 104/59 L 12/07/20 00:33 116 H 96 12/07/20 00:32 94 H 117/69 12/07/20 00:30 102 H 18 116/76 12/07/20 00:28 108 H 117/69 96 12/07/20 00:26 106 H 118/74 12/07/20 00:25 18 12/07/20 00:24 107 H 116/66 12/07/20 00:23 131 H 97 12/07/20 00:20 107 H 117/70 12/07/20 00:18 110 H 96 12/07/20 00:13 114 H 98 12/07/20 00:08 118 H 97 12/07/20 00:03 110 H 98 12/07/20 00:02 111 H 86 L 12/06/20 23:58 110 H 97 12/06/20 23:56 110 H 92 12/06/20 23:53 103 H 97 12/06/20 23:49 111 H 91 12/06/20 23:48 114 H 97 12/06/20 23:43 99 H 96 12/06/20 22:35 36.7 C 18 12/06/20 22:34 97 H 135/78 Pain Intensity Bilateral Back: Pain Intensity: 0 Transfer of Care Handoff Completed per policy Notes Mental Status: alert / awake / arousable and participated in evaluation Patient Amnestic to Procedure: No Nausea / Vomiting: adequately controlled Pain: adequately controlled Airway Patency, RR, SpO2: stable & adequate BP & HR: stable & adequate Hydration State: stable & adequate Neuraxial Anesthesia: was administered and sensory block is resolving Anesthetic Complications: no major complications apparent and Pt Satisfied with anesthetic care
[2020-12-07] MEDS ORDERED: DC INTRASPINAL MORPHINE SCH (21:15)
[2020-12-07] MEDS ORDERED: SODIUM CHLORIDE 0.9% 1000ML 1,000 ML IV SCH (21:15)
[2020-12-07] MEDS ORDERED: NO NARCOTICS OR SEDATIVES SCH (21:15)
[2020-12-07] MEDS ORDERED: OXYTOCIN 20 UNITS in LACTATED RINGER'S 1,000 ML IV ONE (21:28)
[2020-12-07] MEDS ORDERED: OXYTOCIN 20 UNITS in LACTATED RINGER'S 1,000 ML IV SCH (21:45)
[2020-12-07] MEDS: DOCUSATE SODIUM 100 MG CAP PO SCH (21:54)
[2020-12-08] MEDS: SIMETHICONE 80 MG CHEW PO SCH ×5 (00:53→19:50)
[2020-12-08] MEDS ORDERED: LACTATED RINGER'S 1,000 ML IV SCH (05:45)
[2020-12-08 06:24] LABS: Basophils # (auto) 0.02 K/uL (0-0.2); Basophils % (auto) 0.1 %; Eosinophils # (auto) 0.11 K/uL (0-0.5); Eosinophils % (auto) 0.6 %; Hematocrit (blood only) 28.7 % (37-47); Immature Granulocytes # (auto) 0.07 K/uL (0.00-0.02); Immature Granulocytes % (auto) 0.4 %; Lymphocytes # (auto) 1.49 K/uL (1.2-3.4); Lymphocytes % (auto) 7.9 %; Mean Corpuscular Hemoglobin 33.9 pg (25-34); Mean Corpuscular Hgb Conc 34.8 g/dL (32-36); Mean Corpuscular Volume 97.3 fL (80-100); Mean Platelet Volume 9.3 fL (7.4-10.4); Monocytes # (auto) 1.11 K/uL (0.11-0.59); Monocytes % (auto) 5.9 %; Neutrophils # (auto) 16.06 K/uL (1.4-6.5); Neutrophils % (auto) 85.1 %; Platelet Count 191 K/uL (130-400); RDW Coefficient of Variation 12.6 % (11.5-14.5); RDW Standard Deviation 44.9 fL (36.4-46.3); Red Blood Count 2.95 M/uL (4.2-5.4); White Blood Count 18.86 K/uL (4.8-10.8)
[2020-12-08] MEDS ORDERED: Nursing to Pharmacy Communication SCH (06:45)
[2020-12-08] MEDS: VANCOMYCIN HCL 1,000 MG in SODIUM CHLORIDE 0.9% 250 ML IV SCH ×2 (07:47→20:07)
[2020-12-08] MEDS ORDERED: FERROUS SULFATE 325 MG TAB PO SCH (08:00)
[2020-12-08] MEDS ORDERED: PRENATAL VITAMIN 1 TAB PO SCH (08:00)
[2020-12-08] MEDS ORDERED: DOCUSATE SODIUM 100 MG CAP PO SCH (08:00)
[2020-12-08] MEDS ORDERED: SIMETHICONE 80 MG CHEW PO SCH (08:00)
[2020-12-08] MEDS ORDERED: GENTAMICIN CONSULT ACTIVE PRN (08:31)
--- NOTE | 2020-12-08 08:39 | Obstetrical Progress Note ---
Date of Service December 08, 2020 Assessment & Plan (1) Chorioamnionitis: Last temp 37.7C, warm to touch Will continue IV abx (gent, clinda and vanc) until tomorrow AM Tylenol as needed for fever/pain (2) hemorrhage: H/H stable Continue to monitor Anticipate D/c home POD 3 Subjective Patient sitting comfortably in bed, SCDs in place, Luong in place. Has not ambulated yet. Currently breast-feeding infant. Currently having some lower abdominal pain. Had declined morphine, as she was worried about being sleepy from the medication. Physical Exam Constitutional WD/WN, vitals as above Respiratory normal respiratory effort, lungs clear to auscultation Cardiovascular RRR, no murmur, no edema Gastrointestinal (Abdomen) normal bowel sounds, soft, nontender, no hepatosplenomegaly Incision clean dry and intact Results & Data ([facility]) Vital Signs (Past 12 Hours) Vital Signs Temp Pulse Pulse Resp BP BP Pulse Ox 12/08/20 08:00 18 98 12/08/20 07:00 18 98 12/08/20 06:00 18 100 12/08/20 05:00 18 98 12/08/20 04:20 36.7 C 88 18 106/71 98 12/08/20 04:00 18 98 12/08/20 03:00 18 97 12/08/20 02:00 18 97 12/08/20 01:00 18 97 12/08/20 00:14 84 96 12/08/20 00:09 83 95 12/08/20 00:05 36.8 C 77 18 120/74 96 12/08/20 00:04 82 94 12/07/20 23:59 78 94 12/07/20 23:54 79 94 12/07/20 23:51 72 120/74 12/07/20 23:49 77 94 12/07/20 23:44 78 95 12/07/20 23:39 77 95 12/07/20 23:34 86 96 12/07/20 23:29 81 96 12/07/20 23:24 88 96 12/07/20 23:19 81 96 12/07/20 23:14 74 96 12/07/20 23:09 73 96 12/07/20 23:06 78 121/79 12/07/20 23:04 80 97 10/23/21 22:59 78 96 23/21 22:56 90 117/75 23/21 22:55 20 21 22:54 78 96 2321 22:49 79 96 23/21 22:46 83 109/66 23/21 22:44 87 95 23/21 22:39 92 H 96 2321 22:36 86 119/71 21 22:34 85 95 21 22:29 84 95 2321 22:26 88 115/67 21 22:25 20 21 22:24 92 H 95 21 22:19 89 96 21 22:16 89 115/89 21 22:14 86 96 21 22:09 89 95 21 22:06 85 110/73 21 22:04 91 H 95 21 21:59 90 94 21 21:56 93 H 130/73 21 21:55 20 21 21:54 94 H 96 21 21:49 94 H 96 21 21:46 99 H 124/79 21 21:45 23 21 21:44 91 H 95 21 21:39 93 H 95 21 21:36 93 H 16 118/88 21 21:34 94 H 95 21 21:29 89 96 21 21:26 87 117/77 21 21:25 18 23/21 21:24 85 95 2321 21:19 91 H 96 23/21 21:16 90 116/75 23/21 21:15 16 23/21 21:14 88 96 23/21 21:09 89 95 23/21 21:05 90 16 113/73 23/21 21:04 87 97 23/21 20:59 88 96 23/21 20:55 36.8 C 16 12/07/21 20:54 89 111/69 96 Laboratory Results H/H 10.0/28.7% WBC 18.86
[2020-12-08] MEDS: PRENATAL VITAMIN 1 TAB PO SCH (09:27)
[2020-12-08] MEDS: DOCUSATE SODIUM 100 MG CAP PO SCH ×2 (09:28→20:06)
[2020-12-08] MEDS: FERROUS SULFATE 325 MG TAB PO SCH (09:28)
[2020-12-08] MEDS: CLINDAMYCIN 900 MG in DEXTROSE 5% 50 ML IV SCH ×2 (09:36→16:44)
[2020-12-08] MEDS ORDERED: ACETAMINOPHEN 500 MG TAB PO PRN (11:44)
[2020-12-08] MEDS ORDERED: ONDANSETRON INJ 2 MG/ML 2 ML VIAL IV PRN (15:05)
[2020-12-08] MEDS ORDERED: diphenhydrAMINE 50 MG/ML VIAL IV PRN (15:05)
[2020-12-08] MEDS ORDERED: diphenhydrAMINE Capsule 25 MG CAP PO PRN (15:05)
[2020-12-08] MEDS ORDERED: PROMETHAZINE HCL 25 MG in SODIUM CHLORIDE 0.9% 50 ML IV PRN (15:05)
[2020-12-08] MEDS: oxyCODONE/ACETAMINOPHEN 5mg/325mg TAB PO PRN (15:44)
[2020-12-08] MEDS: IBUPROFEN 600 MG TAB PO PRN (15:45)
[2020-12-08] MEDS ORDERED: GENTAMICIN SULFATE 320 MG in DEXTROSE 5% 100 ML IV ONE (19:00)
[2020-12-08] MEDS ORDERED: bisacodyL 5 MG TABEC PO SCH ×2 (20:00)
[2020-12-09] MEDS: CLINDAMYCIN 900 MG in DEXTROSE 5% 50 ML IV SCH ×3 (00:49→17:04)
[2020-12-09] MEDS: oxyCODONE/ACETAMINOPHEN 5mg/325mg TAB PO PRN ×5 (02:30→23:42)
[2020-12-09] MEDS: IBUPROFEN 600 MG TAB PO PRN ×5 (02:30→23:42)
[2020-12-09 05:57] LABS: Basophils # (auto) 0.02 K/uL (0-0.2); Basophils % (auto) 0.1 %; Eosinophils # (auto) 0.24 K/uL (0-0.5); Eosinophils % (auto) 1.6 %; Hematocrit (blood only) 26.3 % (37-47); Hemoglobin 9.2 g/dL (12.0-16.0); Immature Granulocytes # (auto) 0.05 K/uL (0.00-0.02); Immature Granulocytes % (auto) 0.3 %; Lymphocytes # (auto) 1.41 K/uL (1.2-3.4); Lymphocytes % (auto) 9.3 %; Mean Corpuscular Hemoglobin 33.9 pg (25-34); Mean Platelet Volume 9.4 fL (7.4-10.4); Monocytes # (auto) 0.89 K/uL (0.11-0.59); Monocytes % (auto) 5.9 %; Neutrophils % (auto) 82.8 %; Platelet Count 203 K/uL (130-400); RDW Coefficient of Variation 12.8 % (11.5-14.5); Red Blood Count 2.71 M/uL (4.2-5.4); White Blood Count 15.21 K/uL (4.8-10.8)
--- NOTE | 2020-12-09 07:29 | Obstetrical Progress Note ---
Date of Service December 09, 2020 Assessment & Plan Admission and Anticipated Discharge Date Admission Date: December 06, 2020 Subjective Patient is seen and examined. She feels sore around incision, has not taken her pain meds this morning. Pain is under control with oral meds. Ambulating without dizziness Voiding without difficulty Tolerating regular diet with out N&V Flatus + BM neg Bleeding is minimal No fever/ chills/ CP/ SOB/ N&V/ Leg pain Breast feeding without problems Vital Signs Temp Pulse Resp BP Pulse Ox 12/09/20 02:20 37.0 C 120 H 120/79 12/08/20 23:15 36.6 C 90 18 108/73 93 Vital Signs Temp Pulse Resp BP Pulse Ox 12/09/20 02:20 37.0 C 120 H 120/79 12/08/20 23:15 36.6 C 90 18 108/73 93 12/08/20 19:20 36.8 C 86 16 92/61 L 97 12/08/20 15:12 37.0 C 92 H 18 105/60 98 12/08/20 14:35 18 98 12/08/20 13:21 18 96 12/08/20 12:10 16 99 12/08/20 11:30 37.5 C 105 H 16 105/70 99 12/08/20 11:10 18 99 12/08/20 10:10 18 97 12/08/20 09:10 18 99 12/08/20 08:00 18 98 Intake and Output 12/08/20 12/09/20 12/09/20 22:59 06:59 14:59 Intake Total 1365.25 / 1747.25 56 / 1747.25 Output Total 500 / 4250 Balance 865.25 / -2502.75 56 / -2502.75 Intake: IV 1365.25 / 1747.25 56 / 1747.25 Clindamycin 900 mg In Dextrose 56 / 168 56 / 168 5% 50 ml @ 112 mls/hr IV Q8H [facility] Rx#:[id number] Gentamicin Sulfate 320 mg In 108 / 108 Dextrose 5% 100 ml @ 100 mls/hr IV Q24H [facility] Rx#:[id number] Lactated Ringer's 1,000 ml @ 931.25 / 931.25 125 mls/hr IV .Q8H [facility] Rx#: [id number] Vancomycin HCl 1,000 mg In 270 / 540 Sodium Chloride 0.9% 250 ml @ 200 mls/hr IV Q12H [facility] Rx#: [id number] Output: Urine 500 / 500 Pulse now: 82 PE: General: Alert, orientedx3, NAD CVS: S1S2 RRR Lungs; CTAB Abd: soft, NT, ND, BS+, fundus firm, below Umbilicus Incision: Clean, dry, intact Perineum intact, Lochia rubra minimal Ext; NT, no edema AP: 35 yo s/p C Section, pod# 2, on IV Ab for chorioamnionitis VSS Afebrile doing well Continue routine postop care Complete 48 hours of IV AB Encourage ambulation, PO intake All questions were answered D/C home tomorrow Results & Data ([facility]) Vital Signs (Past 12 Hours) Vital Signs Temp Pulse Resp BP Pulse Ox 12/09/20 02:20 37.0 C 120 H 120/79 12/08/20 23:15 36.6 C 90 18 108/73 93
[2020-12-09] MEDS: VANCOMYCIN HCL 1,000 MG in SODIUM CHLORIDE 0.9% 250 ML IV SCH ×2 (07:54→19:55)
[2020-12-09] MEDS: SIMETHICONE 80 MG CHEW PO SCH ×4 (09:05→21:01)
[2020-12-09] MEDS: DOCUSATE SODIUM 100 MG CAP PO SCH ×2 (09:05→21:01)
[2020-12-09] MEDS: PRENATAL VITAMIN 1 TAB PO SCH (09:05)
[2020-12-09] MEDS: FERROUS SULFATE 325 MG TAB PO SCH (09:06)
[2020-12-09] MEDS ORDERED: Nursing to Pharmacy Communication SCH (20:30)
[2020-12-09] MEDS ORDERED: bisacodyL 10 MG SUPP PR PRN ×2 (20:50→21:27)
[2020-12-10 06:29] LABS: Basophils # (auto) 0.02 K/uL (0-0.2); Basophils % (auto) 0.2 %; Eosinophils # (auto) 0.22 K/uL (0-0.5); Eosinophils % (auto) 2.3 %; Hematocrit (blood only) 25.8 % (37-47); Hemoglobin 8.8 g/dL (12.0-16.0); Immature Granulocytes # (auto) 0.04 K/uL (0.00-0.02); Immature Granulocytes % (auto) 0.4 %; Lymphocytes # (auto) 1.84 K/uL (1.2-3.4); Lymphocytes % (auto) 19.2 %; Mean Corpuscular Hemoglobin 33.2 pg (25-34); Mean Corpuscular Hgb Conc 34.1 g/dL (32-36); Mean Corpuscular Volume 97.4 fL (80-100); Mean Platelet Volume 9.8 fL (7.4-10.4); Monocytes # (auto) 0.73 K/uL (0.11-0.59); Monocytes % (auto) 7.6 %; Neutrophils # (auto) 6.71 K/uL (1.4-6.5); Neutrophils % (auto) 70.3 %; Platelet Count 217 K/uL (130-400); RDW Coefficient of Variation 12.8 % (11.5-14.5); RDW Standard Deviation 45.8 fL (36.4-46.3); Red Blood Count 2.65 M/uL (4.2-5.4); White Blood Count 9.56 K/uL (4.8-10.8)
[2020-12-10] MEDS: PRENATAL VITAMIN 1 TAB PO SCH (08:27)
[2020-12-10] MEDS: FERROUS SULFATE 325 MG TAB PO SCH (08:27)
[2020-12-10] MEDS: SIMETHICONE 80 MG CHEW PO SCH ×2 (08:27→13:41)
[2020-12-10] MEDS: IBUPROFEN 600 MG TAB PO PRN ×2 (08:29→13:41)
[2020-12-10] MEDS: oxyCODONE/ACETAMINOPHEN 5mg/325mg TAB PO PRN ×2 (08:30→13:42)
[2020-12-10] MEDS: DOCUSATE SODIUM 100 MG CAP PO SCH (08:30)
--- NOTE | 2020-12-10 09:11 | Obstetrical Progress Note ---
Date of Service December 10, 2020 Assessment & Plan (1) hemorrhage: s/p c/sec day #2 H/H 8.836 Repeat H/H this PM- will disch when stable H/H (2) delivery delivered: S/P c/sec day #2 Pt doing well H/H 8.836 Repeat h/h at Noon. Will disch when stable H/H Subjective Ambulation: ambulating normally Voiding: no voiding problems Passing Gas:: Yes Diet Tolerance:: clear liquids Lochia:: Small Feeding Type:: breast feeding Review of Systems All systems reviewed & are unremarkable except as noted in HPI & below Physical Exam Constitutional WD/WN, vitals as above well developed and well nourished Eyes PERRL, conjunctivae normal, anicteric sclerae ENMT external ear and nose normal, oropharynx normal Neck trachea midline, no thyromegaly Respiratory normal respiratory effort, lungs clear to auscultation Cardiovascular RRR, no murmur, no edema Chest (Breasts) normal inspection/palpation of breasts Gastrointestinal (Abdomen) normal bowel sounds, soft, nontender, no hepatosplenomegaly Musculoskeletal no cyanosis or clubbing, extremities motor strength 5/5 Skin no rashes, warm and dry + incision (Clean,dry and intact) Neurologic patellar DTR's 2+ bilat, sensation intact Psychiatric A+Ox3, euthymic affect Genitourinary normal external appearance Lymphatic no cervical or axillary lymphadenopathy Results & Data ([facility]) Vital Signs (Past 12 Hours) Vital Signs Temp Pulse Resp BP 12/09/20 23:45 36.7 C 93 H 18 117/76
[2020-12-10 12:34] LABS: Hematocrit (blood only) 28.5 % (37-47); Hemoglobin 9.9 g/dL (12.0-16.0)
--- NOTE | 2020-12-13 06:43 | Discharge Summary ---
Date of Service December 13, 2020 Admission HPI Per Admitting Provider Patient is a 35-year-old G1, P0 at 40 weeks and 2 days of gestation who was scheduled for induction of labor for postdates. She denies contractions, leakage of fluid, vaginal bleeding. She reports good movements. Her has been uncomplicated, GBS is negative. She denies fever, chills, headaches, change in her vision, Covid symptoms. She received 2 doses of COVID-19 vaccine. Her last ultrasound was on December 12 and baby was measuring around 8 pounds 14 ounces. She states her baby has been measuring 2 weeks ahead. We did another bedside ultrasound today, fetus is vertex presentation, occiput posterior, placenta posterior, amniotic fluid volume is normal, heart rate 140s, multiple breathing episodes were seen, estimated weight is 4080 g. Patient is asking about recommendation when to do . We discussed a cog recommendation as elective if estimated weight is more than 5000 g. Discussed with the patient in details about the risk of shoulder dystocia with larger babies, clavicular fracture, nerve injuries, asphyxia/hypoxia. We also discussed risks of as a major surgery, bleeding, infection, injury to surrounding organs like bowels bladder ureters, scarring, adhesions, blood clots in his legs lungs and future risks of multiple C-sections. After long discussion patient decided to proceed with trial of vaginal . We discussed the induction process and what to expect from cervical ripening and labor in details. All questions were answered. Admission Exam (Per Admitting) Constitutional WD/WN, vitals as above Respiratory normal respiratory effort, lungs clear to auscultation Cardiovascular RRR, no murmur, no edema Gastrointestinal (Abdomen) normal bowel sounds, soft, nontender, no hepatosplenomegaly Discharge Data Procedures Performed Operation Date: 12/07/20 19:30 Actual Procedures p Primary Section for the delivery of live male child at 2018. - Amada Slaughter MD, PhD Hospital Course (1) hemorrhage: s/p c/sec day #2 H/H 8.8/36 Repeat H/H this PM- will disch when stable H/H (2) delivery delivered: S/P c/sec day #2 Pt doing well H/H 8.836 Repeat h/h at Noon. Will disch when stable H/H (3) Chorioamnionitis: Received Vanc, gent and clind prior to CD, then 24 hours after delivery. Acute chorio on placenta path noted Discharge Instructions ACTIVITY RECOMMENDATIONS: * Gradual return to full activity over the next 2-3 weeks. * No lifting - nothing heavier than baby over the next 2-3 weeks. * Do not engage in vigorous exercise, sexual activity or sports until cleared by your physician. * Do not drive or operate any motorized equipment until cleared by your physician. * You may shower/bathe daily. BREAST CARE: If you are not breast feeding: * Wear a supportive bra 24 hours a day for one to two weeks. * Avoid stimulating your breasts and nipples as much as possible during the first few weeks after delivery. * When taking a shower, have the warm water hit your back, not breasts. * When your breasts feel full, apply ice packs. Usually three to four times a day helps ease the discomfort. * Take a mild pain medication (Tylenol/Motrin) when you are uncomfortable. If breast feeding: * Use breast milk to lubricate nipples. Lansinoh cream may be used for sore nipples. You do not need to remove cream prior to breast feeding. If using a different brand of cream, check the label for directions regarding removal of cream prior to nursing. * Wear a supportive bra. * If having problems with breasts or breast feeding, call a oracle security consultant or your health care provider. OVER THE COUNTER MEDICATION: * For discomfort or pain, you may use Acetaminophen (Tylenol), Ibuprofen (Advil), or Naproxen (Aleve) following the package directions. * For constipation you may use Colace following the package directions. SPECIAL CARE INSTRUCTIONS: When you are discharged from the hospital, it is important for you to follow the instructions listed below: * During the first week at home, you should be able to care for yourself and your baby. In addition, the usual light household activities are encouraged. * Limit your activities to the way you feel. Do not try to clean the house or move furniture. Be sensible. * If you actively engage in sports and have done so up until the time of your delivery, you may resume these activities as soon as you feel able. This may take up to one month or even longer. Use good judgment. * Continue to take your vitamins for at least six weeks after the of your baby. * Your diet need not be limited unless you were on a special diet before your delivery. Breast-feeding mothers need around 2500 calories per day and at least 64-80 ounces of fluid per day (8 to 10 glasses). * You should eat foods from the four major food groups. Crash diets or fad diets are to be avoided. Eating lean meats, fresh fruits and vegetables, low-fat dairy products, high fiber foods and a regular exercise program, will help you get back to your pre- weight without putting your health at risk. * Constipation is sometimes a problem after delivery. Take a mild laxative as needed. If breast feeding, Milk of Magnesia is acceptable to use. You may use a suppository or Fleets enema if no episiotomy. * A daily shower or tub bath is suggested. Be sure to thoroughly and gently dry the perineum. * A bloody vaginal discharge will usually continue until around four weeks post . A small amount of bleeding may continue for as long as six weeks. Vaginal discharge changes from the bright red bleeding after delivery to pink then brownish and finally yellowish-pink before becoming white and disappearing. * Bleeding may increase with activity. Your first period may come in 4-8 weeks. If you are breast feeding, your period may be delayed even longer. * Wauna (sex) can begin whenever both you and your partner feel comfortable and do not have any form of genital infection. It is recommended that you wait at least six weeks for internal and external healing to occur. If you have questions, please talk to your health care practitioner. A condom should be used to prevent infection and . * Foreplay, gentle intercourse and lubrication is very important the first several times to prevent pain. A water-based lubricant such as K-Y jelly or Astroglide may be used. * Tampons and/or Douching should be avoided until after six weeks check-up. * If you have RH negative blood and your baby is RH positive, you will receive RHOGAM by injection prior to discharge. The nurse will give you a card to keep with you that has the date and place that you received RHOGAM after delivery. * During your care, you had a Rubella screen done to check for the presence of rubella antibodies in your blood. If your test was negative, you will receive a Rubella vaccine prior to discharge. This vaccine may cause a fever, soreness at the injection site and flu-like symptoms. If these symptoms persist, notify your health care practitioner. is not advised for three months after a Rubella vaccine. * Verbalizes understanding of car seat law as reviewed with patient nursing. * Car Seat hand-out given and reviewed with patient by nursing. * Shaken baby information reviewed with patient by nursing. Call you doctor if: * Heavy bleeding (saturating several pads an hour) or passing clots the size of your fist. * A fever >101 degrees F (38.3 degrees C) on two occasions four hours apart and/or chills. * Unusual pain in the pelvic or vaginal areas. Pain should improve each day . * Call the doctor for any increased redness, drainage or swelling around the incision and any pain unrelieved by prescribed pain medication. * Any signs or symptoms of phlebitis (possible blood clots forming in the veins): leg pain, warm, red or swollen area on leg. * "Baby Blues" lasting longer than two weeks. If you have any questions or concerns, call your health care practitioner at . FOLLOW-UP VISIT: * Incision check (staple removal) in 1 week. Please call doctor's office at to set up appointment. * Please call the office at to schedule a 6 week examination. It is important you keep this appointment. * It is important for you to make arrangements for either yearly or twice yearly check-ups thereafter.
== END 2020-12-10 14:20 | disposition home or self-care (01) | DRG 786 ==
LOC: 4S1 07:45 → 4S2 12-08 00:05

== ENCOUNTER 2023-09-10 05:41 | Inpatient (IN) ==
--- NOTE | 2023-08-26 13:01 | Anesthesiology Consultation ---
Date of Service August 26, 2023 Assessment & Plan (1) Encounter for pre-operative examination: - 12/06/20: epidural-level not noted. 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 History Surgery Operation Date: 09/10/23 07:30 Proposed Procedures p Repeat Section - Miryam Lennon MD Height/Weight Height: 5 ft 2 in Weight: 89.358 kg Allergies Allergy/AdvReac Type Severity Reaction Status Date / Time pineapple Allergy Severe Hives Verified 08/26/23 12:28 amoxicillin Allergy Intermediate Hives Verified 08/26/23 12:28 Medications Home Medications Medication Instructions Recorded Confirmed Last Taken ferrous sulfate 325 mg (65 mg 325 mg PO QAM 12/06/20 08/26/23 12/04/20 18:30 iron) tablet (Iron (ferrous sulfate)) prenat.vits,shayla,[id number] 1 tab PO QAM 12/06/20 08/26/23 08/04/23 10:00 ibuprofen 600 mg tablet 600 mg PO DAILY PRN Pain 08/26/23 08/26/23 Unknown Past Medical History Medical History (Updated 08/26/23 @ 12:58 by Tara Fischer PA-C) Gestational diabetes controlled with diet currently. checks blood sugar daily and well controlled. History of chorioamnionitis per record - pt denies History of hemorrhage in 2020 during . no blood transfusions per patient. History of spontaneous (2022) did not need D&C Past Family History Family History Father Hyperlipidemia Father Hypertension Grandfather (Maternal) Cancer of ear Other No family history of adverse response to anesthesia Past Surgical History Surgical History History of section (2020) History of colposcopy History of wisdom tooth extraction Social History Smoking Status: Never smoker Do You Dip or Chew Tobacco: No Hx Alcohol Use: No Hx Substance Use: No substance use type: does not use Lab Results Anesthesia Preop Results Results Anesthesia Widget: WBC 9.56 K/ul (4.8-10.8) 08/05/23 Hgb 12.2 g/dl (12.0-16.0) 08/05/23 Hct 34.7 % (37.0-47.0) L 08/05/23 Plt 220 K/uL (130-400) 08/05/23 Na 131 mmol/L (136-145) L 08/05/23 K 3.4 mmol/L (3.5-5.1) L 08/05/23 Cl 103 mmol/L (98-107) 08/05/23 CO2 16 mmol/L (21-32) L 08/05/23 BUN 11 mg/dl (6-23) 08/05/23 Creat 0.50 mg/dl (0.6-1.2) L 08/05/23 Glucose Level 92 mg/dl (70-99(Fasting)) 08/05/23 Urine Color Yellow 08/05/23 Urine Appearance Cloudy (Clear) A 08/05/23 Urine pH 5.5 (4.5-7.5) 08/05/23 Urine Specific [place] 1.016 (1.000-1.030) 08/05/23 Urine Protein Negative (Negative) 08/05/23 Urine Glucose (UA) Negative (Negative) 08/05/23 Urine Ketones 4+ (Negative) H 08/05/23 Urine Blood Negative (Negative) 08/05/23 Urine Nitrite Negative (Negative) 08/05/23 Urine Bilirubin Negative (Negative) 08/05/23 Urine Urobilinogen Negative (Negative) 08/05/23 Urine Leukocyte Esterase 1+ (Negative) H 08/05/23 Urine WBC (Auto) 11-20 /hpf (0-5) H 08/05/23 Urine RBC (Auto) 0-2 /hpf (0-2) 08/05/23 Urine Hyaline Casts (Auto) 0-2 /lpf (0-2) 08/05/23 Urine Epithelial Cells (Auto) 3-5 /hpf (0-2) H 08/05/23 Urine Bacteria (Auto) 3+ (None Seen) H 08/05/23 Testing Electrocardiogram Date: 08/05/23 NSR, rate [address] and T wave abnormality Prolonged QT
--- OUTSIDE RECORDS SUMMARY | 2023-09-10 05:50 | External Medical Summary | Summary of Care ---
Author Name Unknown Organization [facility] Address [address] [place] [address] Phone [phone] Care Team Providers Care Underground Electrician Name Role Phone Unavailable Primary Care Provider Unavailabl e Reason for Visit * Reason Onset Date Comments Medication Refill 08/18/2023 Encounter Details Date Type Department Care Team (Late st Contact Info) Description 08/18/2023 Refill Gynecology/Obstetrics [facility] [address] [place] [address] BackerTracey CRNP [address] [place] [address] Diet controlled gestational diabetes mellitus (GDM) in third trimester Allergies Active Allergy Reactions Criticality Noted Date Comments Amoxicillin 04/11/2001 Day #8 documented as of this encounter (statuses as of 08/20/2023) Medications Medication Sig Dispensed Refills Start Date End Date Status 28-0.8 MG Oral Tablet Take by mouth. Active Breast PumpIndications:B reast feeding status of mother Estimated Date of Delivery: 09/16/23. Z39.1, double electric pump 1 Each 06/23/2023 Active Additional Information Patient not taking.Reported on 07/29/2023 Iron-Vitamin C 65-125 MG Oral Tablet (Vitron C) Take 1 Tablet by mouth in the morning and 1 Tablet before bedtime. 60 Tablet 3 06/23/2023 Active KnewCoinTouch Verio Flex System w/Device KitIndications:Di et controlled gestational diabetes mellitus (GDM) in third trimester Use to test blood sugars 4 times daily (fasting, 1 hour after breakfast, lunch, and dinner) 1 Kit 06/25/2023 Active OneTouch Verio In Vitro Strip (Glucose Blood)Indications :Diet controlled gestational diabetes mellitus (GDM) in third trimester Use to test blood sugars 4 times daily (fasting, 1 hour after breakfast, lunch, and dinner) 125 Strip 6 06/25/2023 Active OneTouch [employer] Lancets 30GIndications:Di et controlled gestational diabetes mellitus (GDM) in third trimester Use to test blood sugars 4 times daily (fasting, 1 hour after breakfast, lunch, and dinner) 200 Each 6 08/20/2023 Active OneTouch Delica Lancets 30GIndications:Di et controlled gestational diabetes mellitus (GDM) in third trimester Use to test blood sugars 4 times daily (fasting, 1 hour after breakfast, lunch, and dinner) 200 Each 6 06/25/2023 4 Discontinue d(Refill) documented as of this encounter (statuses as of 08/20/2023) Active Problems Problem Noted Date Diagnosed Date Excessive growth affec ting management of in third trimester 07/30/2023 Last Assessment & Plan: I reviewed the ultrasound with her. The anatomy that was visualized appears unremarkable and the amniotic fluid volume is normal at 18 cm. The fetus is in the vertex presentation. The overall estimated weight is consistent with the 96 percentile for the gestational age and the abdominal circumference is greater than the 99th percentile for the gestational age. The head circumference is consistent with the 89th percentile for the gestational age. We reviewed the diagnosis of large for gestational age in the setting of gestational diabetes. The patient states that her blood sugars are well controlled and she has not had any blood glucose measurements that are out of range. We also discussed the possibility this could be partly due to the fetus being large for gestational age as opposed to being primarily driven by the diagnosis of gestational diabetes. The patient plans on having a repeat delivery at 39 weeks of gestation. Therefore, at this time, there has no clinical indication for return. However, we did discuss the fact that if she is placed on medication for glycemic control, then we would like to see her back in 4 weeks for an evaluation of growth. CONSIDERATIONS: Reviewed that weight greater than 90%ile is considered "large for gestational age" (LGA). Discussed associated risks (e.g., difficult labor progress or delivery, hemorrhage, shoulder dystocia). LGA may be related to constitutional factors (e.g., male gender, ethnicity), environmental factors (maternal diabetes/obesity/weight gain), or genetic conditions. Discussed the limitations of ultrasound in predicting weight, especially at later gestational ages. For a fetus estimated as greater than 4500 gm, this error may be as high as 33-44%. RECOMMENDATIONS: Recommend assessing for GDM if this has not been performed in the last 3 weeks. Recommend repeating ultrasound for growth at 38-39 weeks gestation. Recommend delivery without trial of labor for estimated weight greater than 5000 gm (in the non-diabetic woman) OR greater than 4500 gm (in the diabetic woman). Concern for macrosomia/LGA is NOT an indication for induction of labor. The patient should discuss further management and delivery plan with her primary OB provider. As required by [place] Act 112, the Patient Test Result Information Act, I have discussed with the patient the significant findings from the diagnostic imaging service performed today. They have expressed their understanding and signed the acknowledgement form. Supervision of high risk in third trim wero 07/29/2023 33 weeks gestation of 07/29/2023 Diet controlled gestational diabetes mellitus (GDM) in third trimester 06/25/2023 Overview: Diagnosed at 32 weeks Nutrition consult ordered Lab Results Component Value Date/Time 50-G GESTATIONAL GLUCOSE, 1 HOUR - [facility] 150 (H) 06/23/2023 09:23 AM 100-G GESTATIONAL GLUCOSE, 1 HOUR - [facility] 250 (H) 06/25/2023 08:11 AM 100-G GESTATIONAL GLUCOSE, 2 HOUR - [facility] 197 (H) 06/25/2023 09:12 AM 100-G GESTATIONAL GLUCOSE, 3 HOUR - [facility] 102 06/25/2023 10:07 AM 100-G GESTATIONAL GLUCOSE, FASTING - [facility] 78 06/25/2023 07:07 AM Recent ultrasound in Radiology on 07/23/2023: IMPRESSION 1. Growth of the BPD, HC, and AC are above the 95th percentile. Other growth parameters are within normal limits utilizing BRITTANY from initial scan. 2. Borderline polyhydramnios with POLI of 24.3. 3. Vertex presentation. 07/29/23: MFM ADAPT consult complete. Enrolled in Current Health. Instructions provided to report blood sugars each week for MFM review; MFM anatomy Ultrasound scheduled 07/30/2023. 08/05/[id number]. Few missed readings. 08/11/[id number]. 08/17/23: RPM reviewed; overall Stable; some low fastings; encouraged a bedtime snack Last Assessment & Plan: CONSIDERATIONS: Reviewed etiology and risks associated with gestational diabetes mellitus (GDM), including risks to , fetus, and maternal progression to Type 2 DM. Instructed on proper use of glucometer; supplies ordered, if indicated. Advised that life-long screening for diabetes is recommended every 1-3 years. RECOMMENDATIONS: Recommend monitoring blood sugars with daily fasting blood sugar (maintained at less than or equal to 95) and 1 hour postprandial measurements (maintained at less than or equal to 140). Medications should be adjusted to maintain these target values. Report levels to MFM (Maternal- Medicine) weekly. Recommend nutrition consult with RDN (Registered Dietitian Saxophone Teacher). Lifestyle changes are also indicated including optimizing gestational weight gain and physical activity of 30 minutes per day, if not otherwise contraindicated in . Insulin is preferred if medications are indicated to optimize euglycemia. Metformin (preferred over glyburide) may also be used in some circumstances. Reviewed the risks and benefits of each. Recommend ultrasound, surveillance and delivery as follows: A1GDM, delivery should be accomplished by 41w0d. A2GDM, recommend growth assessment with MFM every 4 weeks, initiate surveillance at 32 weeks and continue until delivery at 39 weeks. Recommend intrapartum monitoring every 1-2 hours (A2GDM) or every 4 hours (A1GDM) and treat with insulin if indicated. Recommend 2-hour glucose tolerance testing with 75-gram glucose load 6-8 weeks . History of hemorrhage 06/23/2023 Normal 06/23/2023 Class 1 obesity due to excess calories in adult 02/17/2023 Overview: Politely declines early glucola. Agreeable to do at 28w H/O section 02/12/2023 Overview: Desires repeat c/s Antepartum multigravida of advanced maternal age 1202/12/2023 Overview: Age 37 at delivery Low risk NIPT Genetic referral: declines at this time Last Assessment & Plan: CONSIDERATIONS: We reviewed the most pertinent aspects of the following: Advanced maternal age (AMA) refers to a woman with a copeland who will be at the age of 35 or older at the estimated time of delivery and may be associated with increased morbidity. Prior to the appointment the patient has had genetic screening and it was reported as low risk. In addition to the risk of chromosomal abnormalities, there is an increased risk of congenital/structural anomalies. RECOMMENDATIONS: Recommend MFM anatomy ultrasound at 19-20 weeks gestation. ADVANCE DIRECTIVE INFORMATION 03/10/2006 Overview: No, Advance Directive brochure offered , patient declined. Estimated Date of Delivery Comme nts Yes 09/16/2023 Based on last me nstrual period of 12/10/2022 documented as of this encounter (statuses as of 08/20/2023) Resolved Problems Problem Noted Date Diagnosed Date Resolved Date Anemia during in third trimester 10/09/2020 04/30/2023 Supervision of normal first 04/24/2020 06/23/2023 H/O LEEP (loop electrosurgic al excision procedure) of cervix complicating 04/24/2020 06/23/2023 Overview: 10/2019 Dysplasia of cervix, high grade LUAN 2 09/16/2019 04/30/2023 Acute sinusitis 09/04/2009 11/14/2010 General counseling for presc ription of oral contraceptives 09/27/2006 08/29/2019 NONE 09/08/2004 11/14/2010 documented as of this encounter (statuses as of 08/20/2023) Immunizations Name Administration Dates Next Due DTWP - Dipth/Tet/Whole Cell Pertussis 03/22/1988 ,01/25/1988 HPV Vaccine, 4-Valent 09/27/2006,05/28/2006,10/2006 Hepatitis A, Ped/Adol., 18 y ear and below, 2-Dose 05/28/2006,09/23/2005 Meningococcal Conjugate Vacc ine (Menactra/Menveo) 09/23/2005 OPV - Polio Virus Vaccine (Oral) 03/22/1988 PPD 02/24/2010,02/26/2009,01/09/2008 Seasonal Influenza, PF, 6 M & above, IM , (FluLaval or Fluzone) 01/27/2022,11/08/2020 Seasonal Influenza, Split, I IV3, With Preserve, Inj 11/14/2010 TDAP (age 10 and older)(Boostrix) 06/23/2023,,04/18/2014 documented as of this encounter Social History Tobacco Use Types Packs/Day Years Used Date Smoking Tobacco: Never Smokeless Tobacco: Never Alcohol Use Standard Drinks/Week Comments Not Currently 0 (1 standard drink = 0.6 oz pur e alcohol) social PHQ-2 Answer Date Recorded PHQ Adult Total Score 0 06/23/2023 Hunger Vital Sign Answer Date Recorded Within the past 12 months, y ou worried that your food would run out before you got the money to buy more. Patient declined Within the past 12 months, t he food you bought just didn't last and you didn't have money to get more. Patient declined [place] Depression Scale Answer Date Recorded [place] Depression Scale Total 0 06/23/2023 The thought of harming myself has occurred to me . Never 06/23/2023 Childcare Answer Date Recorded Do you feel overwhelmed with taking care of a child, family member or friend? No 04/30/2023 Does your family need help f inding childcare? (Household - for ages 0-17 years) Not on file 04/30/2023 Clothing Answer Date Recorded Have you been unable to get clothing when it was really needed? No 04/30/2023 Is your family able to get c lothes or diapers when needed? (Household - for ages 0-17 years) Not on file 04/30/2023 Personal Safety Answer Date Recorded Do you feel unsafe or have concerns for your saf ety? No 04/30/2023 Do you have concerns for you r family's safety? (Household - for ages 0-17 years) Not on file 04/30/2023 Utilities Answer Date Recorded Do you have trouble paying y our heating, water, or electric bill? No 04/30/2023 Is your family able to pay t he heat, water, or electric bill? (Household - for ages 0-17 years) Not on file 04/30/2023 Does your family have access to good internet? (Household - for ages 0-17 years) Not on file 04/30/2023 Employment Status Answer Date Recorded Are you unemployed or without regular income? No 04/30/2023 Does the household have a re gular source of income? (Household - for ages 0-17 years) Not on file 04/30/2023 Social Connections Answer Date Recorded How often do you feel lonely or isolated from th ose around you? Never 04/30/2023 Financial Resource Strain Answer Date R ecorded Do you have any trouble payi ng for your medications, or do you think you might in the future? No 04/30/2023 Does your family have troubl e paying for medicine? (Household - for ages 0-17 years) Not on file 04/30/2023 Transportation Needs Answer Date Record ed READ ONLY Do you have troubl e getting a ride to medical visits or work? Never True 04/30/2023 Does your family have a hard time getting a ride to doctors visits? (Household - for ages 0-17 years) Not on file 04/30/2023 Has lack of transportation k ept you from medical appointments, meetings, work, or from getting things needed for daily living? Check all that apply. (Adult - for ages 18 years and over) Not on file 04/30/2023 Do you (or your family) have trouble finding or paying for a ride (transportation)? (Household - for ages 0-17 years) Not on file 04/30/2023 Housing Stability Answer Date Recorded Do you currently live in a s helter or have no steady place to sleep at night? No 04/30/2023 READ ONLY Do you think you a re at risk of becoming homeless? No 04/30/2023 Does your family worry about paying for your home or becoming homeless? (Household - for ages 0-17 years) Not on file 0 04/30/2023 Are you homeless or worried that you might be in the future? (Adult - for ages 18 years and over) Not on file Are you (or your family) uzma eless or worried that you might be in the future? (Household - for ages 0-17 years) Not on file Food Insecurity Answer Date Recorded Do you need food for this week? No 04/30/2023 Are you able to get enough f ood for your family? (Household - for ages 0-17 years) Not on file 04/30/2023 Does your family need food t his week? (Household - for ages 0-17 years) Not on file 04/30/2023 Do you always have enough fo od for your family? (Household - for ages 0-17 years) Not on file 04/30/2023 Estimated Date of Delivery Comme nts Yes 09/16/2023 Based on last me nstrual period of 12/10/2022 Sex and Gender Information Value Date Recorded Sex Assigned at Female 07/23/2022 9:44 AM EDT Gender Identity Female 07/23/2022 9:44 AM EDT Sexual Orientation Straight 07/23/2022 9: 44 AM EDT Job Start Date Occupation Industry Not on file Not on file Not on file documented as of this encounter Miscellaneous Notes * Telephone Encounter - Amada Slaughter MD - 08/20/2023 8:23 AM EDT Signed Prescriptions: Disp Refills OneTouch Delica Lancets 30G 200 Ea*6 Sig: Use to test blood sugars 4 times daily (fasting, 1 hour after breakfast, lunch, and dinner) Authorizing Provider: AMADA SLAUGHTER * Telephone Encounter - Reanna Carvajal LPN - 08/20/2023 8:21 AM EDT Pending Prescriptions: Disp Refills OneTouch Delica Lancets 30G 200 Ea*6 Sig: Use to test blood sugars 4 times daily (fasting, 1 hour after breakfast, lunch, and dinner) documented in this encounter Plan of Treatment Upcoming Encounters Date Type Department Care Team (Late st Contact Info) Description 08/26/2023 11:15 AM EDT Office Visit Gynecology/Obstetrics [facility] [address] [place] [address] Montse Raza MD [address] [place], [place] [address] [address] 09/17/2023 10:30 AM EDT Office Visit Gynecology/Obstetrics [facility] [address] [place] [address] Libertad Hendrickson PA-C [address] [place] [address] Health Maintenance Due Date Last Done Comments HPV/Co-Test 11/16/2017 COVID-19 Vaccine (2022- season) 2022 Influenza Vaccine (FLU shot) (#1) 2023 01/27/2022, 11/08/2020, 11/14/2010 Depression Screening 06/22/2024 06/23/2023 Cervical Cancer Screening 11/04/2024 Pap Smear 11/04/2024 11/04/2021, 04/15, 08/29/2019, Additional history exists Diabetes Screening 08/04/2026 08/05/2023 DTaP,Tdap,and Td Vaccines (9 - Td or Tdap) 06/22/2033 06/23/2023, 09/11/2020, 04/18/2014, Additional history exists Hepatitis B Vaccine Completed 06/30/1996, 06/30/1996, 12/30/1995, Additional history exists MENINGOCOCCAL (MENACTRA/MENVEO) Completed 09/23/2005, 09/23/2005 HPV (Gardasil) Vaccine Completed 7, 05/28/2006, 03/26/2006 Pneumococcal Vaccine: Pediatrics (0 to 5 Years) and At-Risk Patients (6 to 64 Years) Aged Out No longer eligible based on patient's age to complete this topic documented as of this encounter Medical Devices Not on filedocumented as of this encounter Visit Diagnoses Diagnosis Diet controlled gestational diabetes mellitus (GDM) in third trimester documented in this encounter
--- OUTSIDE RECORDS SUMMARY | 2023-09-10 05:50 | External Medical Summary | Summary of Care ---
Author Name Unknown Organization [facility] Address [address] [place] [address] Phone [phone] Care Team Providers Care Manager Utilization Management Name Role Phone Unavailable Primary Care Provider Unavailabl e Reason for Visit * Reason Onset Date Comments Scheduling 08/05/2023 Encounter Details Date Type Department Care Team (Late st Contact Info) Description 08/05/2023 Telephone Gynecology/Obstetrics [facility] [address] [place] [address] Miryam Walter MD [address] [place] [address] Scheduling Allergies Active Allergy Reactions Criticality Noted Date Comments Amoxicillin 04/11/2001 Day #8 documented as of this encounter (statuses as of 08/16/2023) Medications Medication Sig Dispensed Refills Start Date End Date Status 28-0.8 MG Oral Tablet Take by mouth. Active Breast PumpIndications:Lucy ast feeding status of mother Estimated Date of Delivery: 09/16/23. Z39.1, double electric pump 1 Each 06/23/2023 Active Additional Information Patient not taking.Reported on 07/29/2023 Iron-Vitamin C 65-125 MG Oral Tablet (Vitron C) Take 1 Tablet by mouth in the morning and 1 Tablet before bedtime. 60 Tablet 3 06/23/2023 Active [employer] RepublicTouch Verio Flex System w/Device KitIndications:Diet controlled gestational diabetes mellitus (GDM) in third trimester Use to test blood sugars 4 times daily (fasting, 1 hour after breakfast, lunch, and dinner) 1 Kit 06/25/2023 Active OneTouch Verio In Vitro Strip (Glucose Blood)Indications:D iet controlled gestational diabetes mellitus (GDM) in third trimester Use to test blood sugars 4 times daily (fasting, 1 hour after breakfast, lunch, and dinner) 125 Strip 6 06/25/2023 Active News Republic[employer] Delica Lancets 30GIndications:Diet controlled gestational diabetes mellitus (GDM) in third trimester Use to test blood sugars 4 times daily (fasting, 1 hour after breakfast, lunch, and dinner) 200 Each 6 06/25/2023 Active documented as of this encounter (statuses as of 08/16/2023) Active Problems Problem Noted Date Diagnosed Date [...] 10:07 AM 100-G GESTATIONAL GLUCOSE, FASTING - [facility] 78 06/25/2023 07:07 AM She reports her home blood glucose as following: DATE Fasting 1 hr after Breakfast 1 hr after Lunch 1 hr after Dinner 07/22/23 77 99 80 x 07/23/23 78 89 x 87 07/24/23 76 75 x 111 07/25/23 72 82 x 82 07/26/23 78 93 86 78 07/27/23 72 93 89 88 07/28/23 75 99 75 66 07/29/2023 48 x x x Recent ultrasound in Radiology on 07/23/2023: IMPRESSION [...] MFM review; MFM anatomy Ultrasound scheduled 07/30/2023. 08/05/[id number]. Few missed readings. 08/11/[id number]. Last Assessment & Plan: CONSIDERATIONS: Reviewed etiology [...] Recommend nutrition consult with RDN (Registered Dietitian Peoplesoft Analyst). Lifestyle changes are also indicated including optimizing [...] as of this encounter (statuses as of 08/16/2023) Resolved Problems Problem Noted Date Diagnosed Date [...] as of this encounter (statuses as of 08/16/2023) Immunizations Name Administration Dates Next Due DTWP - Dipth/Tet/Whole Cell Pertussis ,05/28/1988,03/22/1988,01/24 DTaP Dipth/Tet/Acell Pertussis (Infanrix), Peds 11/18/1992 HPV Vaccine, 4-Valent 09/27/2006,05/28/2006,0210/2006 Hepatitis A, Ped/Adol., 18 y ear and below, 2-Dose 05/28/2006,09/23/2005 Hepatitis B Vaccine 06/30/1996,12/30/1995,1995 MMR - Measles/Mumps/Rubella Vaccine 01/22/1999,0 05/25/1989 Meningococcal Conjugate Vacc ine (Menactra/Menveo) 09/23/2005 OPV - Polio Virus Vaccine (Oral) 993,06/18/1989,05/28/1988,03/27,03/22/1988 PPD 02/24/2010,02/26/2009,01/09/2008 Seasonal Influenza, PF, 6 M & above, IM , (FluLaval or Fluzone) 01/27/2022,11/08/2020 Seasonal Influenza, Split, I IV3, With Preserve, Inj 11/14/2010 TD - Tetanus/Diptheria (ADULT) 09/04/2002 TDAP (age 10 and older)(Boostrix) 06/23/2023,,04/18/2014 documented [...] have money to get more. Patient declined [place] Depression Scale Answer Date Recorded [place] Depression Scale Total 0 06/23/2023 The thought [...] encounter Miscellaneous Notes * Telephone Encounter - Miryam Walter MD - 08/11/2023 11:04 AM EDT I need an assist please? Is Dr Mendoza available, if not Libertad? If not you can schedule her to next Wednesday it is upto you Patient wanted me and that Wednesday Thanks * Telephone Encounter - Roxana Bennett OSA - 08/10/2023 9:20 AM EDT Schedule blocked for Libertad. * Telephone Encounter - Colleen Verma RN - 08/09/2023 8:41 AM EDT Libertad is in the clinic with pts that day. Just to confirm, an assist is not needed? * Telephone Encounter - Miryam Walter MD - 08/07/2023 8:00 AM EDT No I do not. How about Libertad? * Telephone Encounter - Roxana Bennett OSA - 08/06/2023 10:35 AM EDT I sent Dr Kwan an email to see if assist is needed. * Telephone Encounter - Colleen Verma RN - 08/06/2023 8:22 AM EDT Will send to Roxana to review. Do you have an assist? * Telephone Encounter - Miryam Walter MD - 08/05/2023 6:37 PM EDT Patient is seen in L&D for dehydration. She is being discharged now She wants to schedule her Repeat Csection at 39 week instead of waiting until 39.6 We put her on September 09 with me. L&D charge nurse is aware. Please help to arrange. Thank you documented in this encounter Plan of Treatment Upcoming Encounters Date Type Department Care Team (Late st Contact Info) Description 08/26/2023 11:15 AM EDT Office Visit Gynecology/Obstetrics [facility] [address] [place] [address] Montse Raza MD [address] [place] [address] [place] [address] 09/17/2023 10:30 AM EDT Office Visit Gynecology/Obstetrics [facility] [address] [place] [address] Libertad Hendrickson PA-C [address] [place] [address] Health Maintenance Due Date Last Done Comments HPV/Co-Test 11/16/2017 COVID-19 Vaccine (2022- season) 2022 Influenza Vaccine (FLU shot) (#1) 2023 01/27/2022, 11/08/2020, 11/14/2010 Depression Screening 06/22/2024 06/23/2023 Cervical Cancer Screening 11/04/2024 Pap Smear 11/04/2024 11/04/2021, 04/15, 08/29/2019, Additional history exists Diabetes Screening 08/04/2026 08/05/2023 DTaP,Tdap,and Td Vaccines (9 - Td or Tdap) 06/22/2033 06/23/2023, 09/11/2020, 04/18/2014, Additional history exists Hepatitis B Completed 06/30/1996, 06/15, 12/30/1995, Additional history exists MENINGOCOCCAL (MENACTRA/MENVEO) Completed 09/23/2005, 09/23/2005 GARDASIL-HPV IMMUNIZATION SERIES Completed 09/27/2006, 05/28/2006, 03/26/2006 Pneumococcal Vaccine: Pediatrics (0 to 5 Years) and At-Risk Patients (6 to 64 Years) Aged Out No longer eligible based on patient's age to complete this topic documented as of this encounter Medical Devices Not on filedocumented as of this encounter
--- OUTSIDE RECORDS SUMMARY | 2023-09-10 05:50 | External Medical Summary | Summary of Care ---
Author Name Unknown Organization [facility] Address [address] [place] [address] Phone [phone] Care Team Providers Care Rn Lvn Name Role Phone Unavailable Primary Care Provider Unavailabl e Encounter Details Date Type Department Care Team (Late st Contact Info) Description 08/30/2023 Telephone Gynecology/Obstetrics [facility] [address] [place] [address] Deborah Coates CRNP [address] [place] [address] Allergies Active Allergy Reactions Criticality Noted Date Comments Amoxicillin 04/11/2001 Day #8 documented as of this encounter (statuses as of 08/30/2023) Medications Medication Sig Dispensed Refills Start Date [...] before bedtime. 60 Tablet 3 06/23/2023 Active Melon #usemelonTouch Verio Flex System w/Device KitIndications:Diet controlled gestational diabetes mellitus (GDM) in third trimester Use to test blood sugars 4 times daily (fasting, 1 hour after breakfast, lunch, and dinner) 1 Kit 06/25/2023 Active Melon #usemelonTouch Verio In Vitro Strip (Glucose Blood)Indications:D iet controlled gestational diabetes mellitus (GDM) in third trimester Use to test blood sugars 4 times daily (fasting, 1 hour after breakfast, lunch, and dinner) 125 Strip 6 06/25/2023 Active Melon #usemelonTouch [employer] Lancets 30GIndications:Diet controlled gestational diabetes mellitus (GDM) in third trimester Use to test blood sugars 4 times daily (fasting, 1 hour after breakfast, lunch, and dinner) 200 Each 6 08/20/2023 Active documented as of this encounter (statuses as of 08/30/2023) Active Problems Problem Noted Date Diagnosed Date [...] FASTING - [facility] 78 06/25/2023 07:07 AM Recent ultrasound in [...] MFM review; MFM anatomy Ultrasound scheduled 07/30/2023. 08/05/[id number]. Few missed readings. 08/11/20239927-[id number]-ryyyxb. 08/17/23: RPM reviewed; overall Stable; some low fastings; encouraged a bedtime snack 08/25/20230926-OQT-srcftw overall (was out of strips so unable to test for a few days this week) Last Assessment & Plan: CONSIDERATIONS: Reviewed etiology [...] Recommend nutrition consult with RDN (Registered Dietitian High Tension Tester). Lifestyle changes are also indicated including optimizing [...] as of this encounter (statuses as of 08/30/2023) Resolved Problems Problem Noted Date Diagnosed Date [...] as of this encounter (statuses as of 08/30/2023) Immunizations Name Administration Dates Next Due DTWP [...] have money to get more. Patient declined [place] Depression Scale Answer Date Recorded [place] Depression Scale Total 0 06/23/2023 The thought [...] encounter Miscellaneous Notes * Telephone Encounter - Marisol Baron RN - 08/30/2023 12:44 PM EDT Patient calling in to r/s her JOSE visit this week. When she was scheduled last week she was scheduled in [facility]. Patient just noticed this and called to r/s. Patient is 37w4d , needs to be seen this week. No appts available at all. Offered appt with hanna but patient declined, agreeable to appt with Deborah. Overbooked appt for 1:15. documented in this encounter Plan of Treatment Upcoming Encounters Date Type Department Care Team (Late st Contact Info) Description 09/02/2023 1:15 PM EDT Office Visit Gynecology/Obstetrics [facility] [address] [place] [phone] Deborah Coates CRNP [address] [place] [id number] 09/17/2023 10:30 AM EDT Office Visit Gynecology/Obstetrics [facility] [address] [place] [address] Libertad Hendrickson PA-C [address] [place] [address] Health Maintenance Due Date Last Done Comments [...]
--- OUTSIDE RECORDS SUMMARY | 2023-09-10 05:50 | External Medical Summary | Summary of Care ---
Author Name Unknown Organization [facility] Address [address] [place] [address] Phone [phone] Care Team Providers Care Rag Grader Name Role Phone Unavailable Primary Care Provider Unavailabl e Encounter Details Date Type Department Care Team (Late st Contact Info) Description 08/06/2023 Orders Only Gynecology/Obstetrics [facility] [address] [place] [address] Miryam Walter MD [address] [place] [address] Allergies Active Allergy Reactions Criticality Noted Date Comments Amoxicillin 04/11/2001 Day #8 documented as of this encounter (statuses as of 08/06/2023) Medications Medication Sig Dispensed Refills Start Date [...] before bedtime. 60 Tablet 3 06/23/2023 Active Common CurriculumTouch Verio Flex System w/Device KitIndications:Diet controlled gestational diabetes mellitus (GDM) in third trimester Use to test blood sugars 4 times daily (fasting, 1 hour after breakfast, lunch, and dinner) 1 Kit 06/25/2023 Active Common CurriculumTouch Verio In Vitro Strip (Glucose Blood)Indications:D iet controlled gestational diabetes mellitus (GDM) in third trimester Use to test blood sugars 4 times daily (fasting, 1 hour after breakfast, lunch, and dinner) 125 Strip 6 06/25/2023 Active Common CurriculumTouch [employer]ica Lancets 30GIndications:Diet controlled gestational diabetes mellitus (GDM) in third trimester Use to test blood sugars 4 times daily (fasting, 1 hour after breakfast, lunch, and dinner) 200 Each 6 06/25/2023 Active documented as of this encounter (statuses as of 08/06/2023) Active Problems Problem Noted Date Diagnosed Date [...] MFM review; MFM anatomy Ultrasound scheduled 07/30/2023. 08/05/[id number]-YNE-qudzpd. Few missed readings. Last Assessment & Plan: CONSIDERATIONS: Reviewed etiology [...] Recommend nutrition consult with RDN (Registered Dietitian Motor Installer). Lifestyle changes are also indicated including optimizing [...] as of this encounter (statuses as of 08/06/2023) Resolved Problems Problem Noted Date Diagnosed Date [...] as of this encounter (statuses as of 08/06/2023) Immunizations Name Administration Dates Next Due DTWP - Dipth/Tet/Whole Cell Pertussis 03/22/1988 ,01/25/1988 HPV Vaccine, 4-Valent 09/27/2006,05/28/2006,02/0 10/2006 Hep A - Hepatitis A (ped/adole, 1-18 Yrs) 2006,09/23/2005 Meningococcal Conjugate Vacc ine (Menactra/Menveo) 09/23/2005 OPV [...] have money to get more. Patient declined [place] Depression Scale Answer Date Recorded [place] Depression Scale Total 0 06/23/2023 The thought [...] No 04/30/2023 Does the household have a [facility] source [facility]? (Household - for ages [...] on file documented as of this encounter Plan of Treatment Health Maintenance Due Date Last Done Comments Diabetes Screening 1987 08/05/2023 HPV/Co-Test 11/16/2017 COVID-19 Vaccine ( season) 2022 Influenza Vaccine (FLU shot) (Season Ended) 2023 01/27/2022, 11/08/2020, 11/14/2010 Depression Screening 06/22/2024 06/23/2023 Cervical Cancer Screening 11/04/2024 Pap Smear 11/04/2024 11/04/2021, 04/15, 08/29/2019, Additional history exists DTaP,Tdap,and Td Vaccines (9 - Td or [...] Not on filedocumented as of this encounter Procedures Procedure Name Priority Date/Time Associated Diagnosis Comments CHEMISTRY-OUTSIDE Routine 08/05/2023 documented in this encounter Results * (ABNORMAL) CHEMISTRY-OUTSIDE (08/05/2023) Not all results display below - see scan for full detail OUTSIDE LAB (SEE SCANNED REPORT) CREATININE-OUTSID E LAB 0.50(L) 0.6 - 1.2 MG/DL OUTSIDE LAB (SEE SCANNED REPORT) EGFR-OUTSIDE LAB 125.4 ML/MIN/1.7 3/M2 OUTSIDE LAB (SEE SCANNED REPORT) POTASSIUM-OUTSIDE LAB 3.4(L) 3.5 - 5.1 MMOL/L OUTSIDE LAB (SEE SCANNED REPORT) GLUCOSE-OUTSIDE LAB 92 70 - 99 MG/DL OUTSIDE LAB (SEE SCANNED REPORT) HOURS FASTING OUTSID E LAB (SEE SCANNED REPORT) TRIGLYCERIDES-OUT SIDE LAB OUTSIDE LAB (SEE SCANNED REPORT) CHOLESTEROL-OUTSI DE LAB OUTSIDE LAB (SEE SCANNED REPORT) HDL-OUTSIDE LAB OUTS [facility] LAB (SEE SCANNED REPORT) CHOL/HDL RATIO-OUTSIDE LAB OUTSIDE LA B (SEE SCANNED REPORT) LDL (CALCULATED)-OUTS [facility] LAB OUTSIDE LAB (SEE SCANNED REPORT) LDL (DIRECT MEASURE)-OUTSIDE LAB OUTSIDE LAB (SEE SCANNED REPORT) HEMOGLOBIN, [id number] LAB OUTSIDE LAB (SEE SCANNED REPORT) PHOSPHORUS-OUTSID E LAB OUTSIDE LAB (SEE SCANNED REPORT) PTH-OUTSIDE LAB OUTS [facility] LAB (SEE SCANNED REPORT) MICROALBUMIN RATIO-OUTSIDE LAB OUTSIDE LA B (SEE SCANNED REPORT) PROTEIN, UA-OUTSIDE LAB OUTSIDE LAB (SEE SCANNED REPORT) HGB OUTSIDE LA B (SEE SCANNED REPORT) 08/05/2023 Miryam Mcmanus MD LABORATORY OUTSIDE LAB (SEE SCANNED REPORT) documented in this encounter
--- OUTSIDE RECORDS SUMMARY | 2023-09-10 05:50 | External Medical Summary | Summary of Care ---
Author Name Unknown Organization [facility] Address [address] [place] [address] Phone [phone] Care Team Providers Care Food And Beverage Service Manager Name Role Phone Unavailable Primary Care Provider Unavailabl e Reason for Visit * Reason Onset Date Comments Scheduling 08/05/2023 Encounter Details Date Type Department Care Team (Late st Contact Info) Description 08/05/2023 Telephone Gynecology/Obstetrics [facility] [address] [place] [address] Miryam Walter MD [address] [place] [phone] Scheduling Allergies Active Allergy Reactions Criticality Noted [...] before bedtime. 60 Tablet 3 06/23/2023 Active ClipMineTouch Verio Flex System w/Device KitIndications:Diet controlled gestational [...] and dinner) 125 Strip 6 06/25/2023 Active ClipMineTouch Delica Lancets 30GIndications:Diet controlled gestational diabetes mellitus [...] MFM review; MFM anatomy Ultrasound scheduled 07/30/2023. 08/05/20234579-[id number]. Few missed readings. 08/11/20231002-QFU-fjwhcd. Last Assessment & Plan: CONSIDERATIONS: Reviewed etiology [...] Recommend nutrition consult with RDN (Registered Dietitian Food Scientist). Lifestyle changes are also indicated including optimizing [...] have money to get more. Patient declined [place] Depression Scale Answer Date Recorded [place] Depression Scale Total 0 06/23/2023 The thought [...] encounter Miscellaneous Notes * Telephone Encounter - Roxana Bennett OSA - 08/16/2023 11:05 AM EDT We are planning for Libertad. I have her scheduled blocked for that morning. * Telephone Encounter - Miryam Walter MD [...] 08/26/2023 11:15 AM EDT Office Visit Gynecology/Obstetrics [facility] [address] [place] [address] Montse Raza MD [address] [place] [address] [place] [phone] 09/17/2023 10:30 AM EDT Office Visit Gynecology/Obstetrics [facility] [address] [place] [phone] Libertad Hendrickson PA-C [address] [place] [address] Health Maintenance Due Date Last Done Comments HPV/Co-Test 11/16/2017 COVID-19 Vaccine (2022- season) 2022 Influenza Vaccine (FLU shot) (#1) 2023 01/27/2022, 11/08/2020, 11/14/2010 Depression Screening 06/22/2024 06/23/2023 Cervical Cancer Screening 11/04/2024 Pap Smear 11/04/2024 11/04/2021, 03, 08/29/2019, Additional history exists Diabetes Screening 08/04/2026 [...]
--- OUTSIDE RECORDS SUMMARY | 2023-09-10 05:50 | External Medical Summary | Summary of Care ---
Author Name Unknown Organization [facility] Address [address] [place] [address] Phone [phone] Care Team Providers Care Churn Drill Operator Name Role Phone Unavailable Primary Care Provider Unavailabl e Reason for Visit * Reason Comments Return Visit Encounter Details Date Type Department Care Team (Late st Contact Info) Description 08/05/2023 2:15 PM EDT Office Visit Gynecology/Obstetric [facility] [address] [facility] [place] [address] Amada Slaughter MD [address] [facility] [place] [address] 34 weeks gestation of *; Excessive growth affecting management of in third trimester, single or unspecified fetus; Diet controlled gestational diabetes mellitus (GDM) in third trimester; H/O section; Class 1 obesity due to excess calories with body mass index (BMI) of 34.0 to 34.9 in adult, unspecified whether serious comorbidity present; History of hemorrhage; Normal in third trimester; Antepartum multigravida of advanced maternal age Allergies Active Allergy Reactions Criticality Noted Date Comments Amoxicillin 04/11/2001 Day #8 documented as of this encounter (statuses as of 08/05/2023) Medications Medication Sig Dispensed Refills Start Date [...] before bedtime. 60 Tablet 3 06/23/2023 Active Biozone Pharmaceuticals[employer]Ch[employer]Now (now [employer] Verio Flex System w/Device KitIndications:Diet controlled gestational diabetes mellitus (GDM) in third trimester Use to test blood sugars 4 times daily (fasting, 1 hour after breakfast, lunch, and dinner) 1 Kit 06/25/2023 Active Biozone PharmaceuticalsTouch Bluesocket In Vitro Strip (Glucose Blood)Indications:D iet controlled gestational diabetes mellitus (GDM) in third trimester Use to test blood sugars 4 times daily (fasting, 1 hour after breakfast, lunch, and dinner) 125 Strip 6 06/25/2023 Active Smeet [email or web address] Lancets 30GIndications:Diet controlled gestational diabetes mellitus (GDM) in third trimester Use to test blood sugars 4 times daily (fasting, 1 hour after breakfast, lunch, and dinner) 200 Each 6 06/25/2023 Active documented as of this encounter (statuses as of 08/05/2023) Active Problems Problem Noted Date Diagnosed Date [...] FASTING - [facility] 80 06/25/2023 07:07 AM She reports her [...] MFM review; MFM anatomy Ultrasound scheduled 07/30/2023. 08/05/[id number]. Few missed readings. Last Assessment & Plan: [...] Recommend nutrition consult with RDN (Registered Dietitian Rn Case Manager). Lifestyle changes are also indicated including optimizing [...] as of this encounter (statuses as of 08/05/2023) Resolved Problems Problem Noted Date Diagnosed Date [...] as of this encounter (statuses as of 08/05/2023) Immunizations Name Administration Dates Next Due DTWP [...] have money to get more. Patient declined [place] Depression Scale Answer Date Recorded [place] Depression Scale Total 0 06/23/2023 The thought [...] 04/30/2023 Does the household have a re lar source of income? (Household - for ages [...] on file documented as of this encounter Last Filed Vital Signs Vital Sign Reading Time Taken Comments Blood Pressure 104/62 08/05/2023 2:16 PM EDT Pulse 130 08/05/2023 2:16 PM EDT Temperature 37.4 C (99.3 F) 08/05/2023 2:16 PM ED T Respiratory Rate - - Oxygen Saturation 98% 08/05/2023 2:16 PM EDT Inhaled Oxygen Concentration - - Weight 86.2 kg (190 lb) 08/05/2023 2:16 PM EDT Height 157.5 cm (5' 2") 08/05/2023 2:16 PM EDT Body Mass Index 34.75 08/05/2023 2:16 PM EDT documented in this encounter Progress Notes * Emperatriz Reddy LPN - 08/05/2023 2:16 PM EDT 34w0d Has been having diarrhea and vomiting for past 24 hours * Amada Slaughter MD - 08/05/2023 2:15 PM EDT Patient is 37 year old at 34 0/7 weeks who presents for JOSE visit Denies contractions, leaking of fluid, or vaginal bleeding. Noted good movement Denies headache, blurry vision, RUQ or epigastric pain. N/V, dheydrated, got sunburned yesterday. pulse 130s Followed by MFM for A1GDM and LGA Did not check sugars today Problem list reviewed BP 104/62 | Pulse 130 | Temp 37.4 C (99.3 F) | Ht 1.575 m (5' 2") | Wt 86.2 kg (190 lb) | LMP 12/10/2022 | SpO2 98% | BMI 34.75 kg/m | BSA 1.94 m Temp 99.3F FH: 40 FHT: 135 Plan: Labor and preeclampsia warnings reviewed Repeat C section at 39 weeks-to schedule Patient to LD for maternal tachycardia and dehydration. Patient agreeable RTC 2 weeks with JUSTYNA Slaughetr MD PhD documented in this encounter Plan of Treatment Health Maintenance Due Date Last Done Comments Diabetes Screening 1987 HPV/Co-Test 11/16/2017 COVID-19 Vaccine ( season) 2022 [...] as of this encounter Visit Diagnoses Diagnosis 34 weeks gestation of - Primary state, incidental Excessive growth affecting management of in third trimester, single or unspecified fetus Diet controlled gestational diabetes mellitus (GDM) in third trimester H/O section Other postprocedural status Class 1 obesity due to excess calories with body mass index (BMI) of 34.0 to 34.9 in adult, unspecified whether serious comorbidity present History of hemorrhage Normal in third trimester Antepartum multigravida of advanced maternal age documented in this encounter
--- OUTSIDE RECORDS SUMMARY | 2023-09-10 05:50 | External Medical Summary | Summary of Care ---
Author Name Unknown Organization [facility] Address [address] [place] [address] Phone [phone] Care Team Providers Care Computer Systems Technician Name Role Phone Unavailable Primary Care Provider Unavailabl e Reason for Visit * Reason Comments Return Visit pre-op exam Encounter Details Date Type Department Care Team (Late st Contact Info) Description 08/26/2023 11:15 AM EDT Office Visit Gynecology/Obstetric [facility] [address] [facility] [place] [address] Montse Raza MD [address] [facility] [phone] 37 weeks gestation of *; Class 1 obesity due to excess calories in adult, unspecified BMI, unspecified whether serious comorbidity present; H/O section; Antepartum multigravida of advanced maternal age; History of hemorrhage; Diet controlled gestational diabetes mellitus (GDM) in third trimester Allergies Active Allergy Reactions Criticality Noted Date Comments Amoxicillin 04/11/2001 Day #8 documented as of this encounter (statuses as of 08/29/2023) Medications Medication Sig Dispensed Refills Start Date [...] before bedtime. 60 Tablet 3 06/23/2023 Active [employer] Verio Flex System w/Device KitIndications:Diet controlled gestational diabetes mellitus (GDM) in third trimester Use to test blood sugars 4 times daily (fasting, 1 hour after breakfast, lunch, and dinner) 1 Kit 06/25/2023 Active [employer] Verio In Vitro Strip (Glucose Blood)Indications:D iet controlled gestational diabetes mellitus (GDM) in third trimester Use to test blood sugars 4 times daily (fasting, 1 hour after breakfast, lunch, and dinner) 125 Strip 6 06/25/2023 Active [employer] Delica Lancets 30GIndications:Diet controlled gestational diabetes mellitus (GDM) in third trimester Use to test blood sugars 4 times daily (fasting, 1 hour after breakfast, lunch, and dinner) 200 Each 6 08/20/2023 Active documented as of this encounter (statuses as of 08/29/2023) Active Problems Problem Noted Date Diagnosed Date [...] MFM review; MFM anatomy Ultrasound scheduled 07/30/2023. 08/05/20236793-QQS-pnofev. Few missed readings. 08/11/[id number]-UKL-ddfmqs. 08/17/23: RPM reviewed; overall Stable; some low fastings; encouraged a bedtime snack 08/25/[id number]-AIY-gzhrkc overall (was out of strips so unable [...] Recommend nutrition consult with RDN (Registered Dietitian Armored Car Messenger). Lifestyle changes are also indicated including optimizing [...] as of this encounter (statuses as of 08/29/2023) Resolved Problems Problem Noted Date Diagnosed Date [...] as of this encounter (statuses as of 08/29/2023) Immunizations Name Administration Dates Next Due DTWP [...] have money to get more. Patient declined [place] Depression Scale Answer Date Recorded [place] Depression Scale Total 0 06/23/2023 The thought [...] Sign Reading Time Taken Comments Blood Pressure 116/82 08/26/2023 11:25 AM EDT Pulse - - Temperature - - Respiratory Rate - - Oxygen Saturation - - Inhaled Oxygen Concentration - - Weight 89.4 kg (197 lb) 08/26/2023 11:25 AM EDT Height 157.5 cm (5' 2") 08/26/2023 11:25 AM EDT Body Mass Index 36.03 08/26/2023 11:25 AM EDT documented in this encounter Progress Notes * Montse Raza MD - 08/26/2023 11:32 AM EDT Colleen Salazar is a 37 year old female here for her routine OB appointment at 37w0d Her Estimated Date of Delivery: 09/16/23 REVIEW OF SYSTEMS: She affirms movement. Denies vaginal bleeding, LOF, regular contractions, N/V, headaches [place] Depression Scale: No data recorded [place] suicide question and score: Score of 3 = Yes, quite often. Score of 2 = Sometimes. Score of 1 = Hardly ever No data recorded PHYSICAL EXAM: Filed Vitals: 08/26/23 1125 Height: 1.575 m (5' 2") +FHT 147 bpm Fundal height 41 cm ASSESSMENT/PLAN: (E66.09) Class 1 obesity due to excess calories in adult, unspecified BMI, unspecified whether serious comorbidity present Plan: Total weight gain 7.711kg. (Z98.891) H/O section Plan: Patient wants to deliver by repeat section. We discussed risks, benefits and alternatives of repeat section. Patient was informed of risks including but not limited to bleeding, infection, injury to the bowel, bladder, ureters, any of the internal organs DVT and pulmonary embolism. The patient verbalized understanding agreed to plan. (O09.529) Antepartum multigravida of advanced maternal age Plan: Q esteban was low risk. (Z87.59) History of hemorrhage Plan: Patient is at risk for hemorrhage. (O24.410) Diet controlled gestational diabetes mellitus (GDM) in third trimester Plan: Blood sugars are well controlled. No intervention is indicated at this time. (Z3A.37) 37 weeks gestation of (primary encounter diagnosis) Plan: - labor precautions and kick counts reviewed - RTO in 1 week Montse Raza MD documented in this encounter H&P Notes * Montse Raza MD - 08/29/2023 5:33 PM EDT Colleen Salazar is a 37 year old, at 37 weeks and 3 days by LMP 12/10/22 consistent with 9 weeks and 1 day ultrasound who presents for a preoperative visit for repeat section. Patient offers no complaints. Patient denies abdominal pain or regular contractions, vaginal bleeding or leaking. 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 Dysplasia of cervix, high grade LUAN 2 09/2019 LGSIL on Pap smear of cervix 2019 Varicella without complication age 4 approx PAST SURGICAL HISTORY: Past Surgical History: Procedure Laterality Date DELIVERY 12/07/2020 COLPOSCOPY OF CERVIX W/BIOPSY 2010 COLPSCPY CERVIX W/LOOP ELECT 09/2019 DENTAL SURGERY PROCEDURE NEC wisdom teeth FAMILY HISTORY: Family History Problem Relation Name Age of Onset No Past Hx Mother Hyperlipidemia Father Hypertension Father No Past Hx None NO FM HX of FANS CLERK [place] SOCIAL HISTORY: Social History Tobacco Use Smoking status: Never Smokeless tobacco: Never Substance Use Topics Alcohol use: Not Currently Comment: social Drug use: No ALLERGIES: Amoxicillin ROS: Constitutional: (-) fever chills sweats or weight loss Cardiovascular: (-) negative: no chest pain, dyspnea, syncope, or palpitations Pulmonary : (-) negative: no cough, wheezing, or shortness of breath Abdominal/GI: (-) negative: no pain, heartburn, dysphagia, bleeding, change in bowel habits, nauseaor vomiting Genitourinary: (-) negative: no dysuria, pelvic pain, irregular menses, or vaginal discharge Neurology: (-) negative: no focal neurologic defect Psychiatry: (-) negative: no depression or anxiety PHYSICAL EXAMINATION: Most Recent Vital Signs: BP 116/82 | Ht 1.575 m (5' 2") | Wt 89.4 kg (197 lb) | LMP 12/10/2022 | BMI 36.03 kg/m | BSA 1.98m Constitutional: no acute distress Heart: Regular rate & rhythm and no murmurs Abdomen: soft, non-tender, and no rebound Extremities: no edema or calf tenderness, otherwise grossly normal, warm and dry Neuro: alert and to person, place and time with fluent speech LABS: LABS: HGB Date Value 07/23/2023 12.0 g/dL 07/05/2023 12.2 G/DL HCT (%) Date Value 07/23/2023 35.7 (L) PLT (K/uL) Date Value 07/23/2023 241 ABO (no units) Date Value 02/12/2023 B Rh (no units) Date Value 02/12/2023 Positive Rubella IgG Antibody (no units) Date Value 02/12/2023 Positive (A) HIV Antigen & Antibody (no units) Date Value 02/12/2023 Negative Hepatitis B Surface Antigen (no units) Date Value 02/12/2023 Negative Hepatitis C Antibody (no units) Date Value 02/12/2023 Negative Syphilis Screen Interpretation (no units) Date Value 06/23/2023 Nonreactive 50-g Gestational Glucose, 1 Hour (mg/dL) Date Value 06/23/2023 150 (H) 100-g Gestational Glucose, Fasting (mg/dL) Date Value 06/25/2023 78 100-g Gestational Glucose, 1 Hour (mg/dL) Date Value 06/25/2023 250 (H) 100-g Gestational Glucose, 2 Hour (mg/dL) Date Value 06/25/2023 197 (H) 100-g Gestational Glucose, 3 Hour (mg/dL) Date Value 06/25/2023 102 Chlamydia Trachomatis Result (no units) Date Value 02/12/2023 Negative Neisseria Gonorrhoeae Result (no units) Date Value 02/12/2023 Negative Group B Strep PCR Result (no units) Date Value 08/26/2023 Negative IMPRESSION: Colleen Salazar is a 37 year old at 37 weeks and 3 days with Scarred uterus GDMA1 AMA History of hemorrhage Class 1 obesity PLAN: Following discussion of the nature of section and possible complications consent was obtained. The patient was informed of risks including but not limited to bleeding, infection, injury to bowel, bladder, ureters, deep venous thrombosis, pulmonary embolism as well as risks of anesthesia. NPO IV fluids Anesthesia review IV Clindamycin and IV Gentamicin documented in this encounter Nursing Notes * Reanna Carvajal LPN - 08/26/2023 11:25 AM EDT 36w6d GBS today Pre-op, csection 09/10/23. documented in this encounter Plan of Treatment Upcoming Encounters Date Type Department Care Team (Late st Contact Info) Description 09/02/2023 1:00 PM EDT Office Visit Gynecology/Obstetrics, [facility] [address] [place] [phone] Ludy Rodriguez PA-C [address] [place] [phone] 09/17/2023 10:30 AM EDT Office Visit Gynecology/Obstetrics [facility] [address] [place] [address] Libertad Hendrickson PA-C [address] [place] [address] Health Maintenance Due Date Last Done Comments HPV/Co-Test 11/16/2017 COVID-19 Vaccine ( season) 2022 Influenza Vaccine (FLU shot) (#1) [...] Procedure Name Priority Date/Time Associated Diagnosis Comments GROUP B STREP CULTURE/PCR Routine 08/26/2023 12:01 PM EDT 37 weeks gestation of documented in this encounter Results * GROUP B STREP CULTURE/PCR (08/26/2023 12:01 PM EDT) Group B Strep PCR Result Negative Negative 08/27/2023 10:01 PM EDT [facility] Comment:No Group B Streptoco ccus detected by culture-enhanced PCR (amplified probe). GBS GBSCt 0.0 08/27/2023 10:01 PM EDT [facility] GBS SPCCt 31.5 08/27/2023 10:01 PM EDT [facility] Swab Rectum and vagina, CS / Unknown 08/26/2023 12:01 PM EDT 08/26/2023 12:01 PM EDT Montse Leigh Raza MD LAB MICRO - G ENERAL ORDERABLES [facility] [address], [place] [id number] documented in this encounter Visit Diagnoses Diagnosis 37 weeks gestation of - Primary state, incidental Class 1 obesity due to excess calories in adult, unspecified BMI, unspecified whether serious comorbidity present H/O section Other postprocedural status Antepartum multigravida of advanced maternal age History of hemorrhage Diet controlled gestational diabetes mellitus (GDM) in third trimester documented in this encounter
--- OUTSIDE RECORDS SUMMARY | 2023-09-10 05:50 | External Medical Summary | Summary of Care ---
Author Name Unknown Organization [facility] Address [address] [place] [address] Phone [phone] Care Team Providers Care Kit Planner Name Role Phone Unavailable Primary Care Provider Unavailabl e Encounter Details Date Type Department Care Team (Late st Contact Info) Description 08/06/2023 Orders Only Gynecology/Obstetrics [facility] [address] [place] [address] Miryam Walter MD [address] [place] [phone] Allergies Active Allergy Reactions Criticality Noted Date [...] before bedtime. 60 Tablet 3 06/23/2023 Active [employer] Verio Flex System w/Device KitIndications:Diet controlled gestational diabetes mellitus (GDM) in third trimester Use to test blood sugars 4 times daily (fasting, 1 hour after breakfast, lunch, and dinner) 1 Kit 06/25/2023 Active [employer] Verio In Vitro Strip (Glucose Blood)Indications:D iet controlled gestational diabetes mellitus (GDM) in third trimester Use to test blood sugars 4 times daily (fasting, 1 hour after breakfast, lunch, and dinner) 125 Strip 6 06/25/2023 Active [employer] Delica Lancets 30GIndications:Diet controlled gestational diabetes mellitus [...] MFM review; MFM anatomy Ultrasound scheduled 07/30/2023. 08/05/[id number]-YHZ-abtyhc. Few missed readings. Last Assessment & Plan: [...] Recommend nutrition consult with RDN (Registered Dietitian Boilermaker Pipe Fitter). Lifestyle changes are also indicated including optimizing [...] have money to get more. Patient declined [place] Depression Scale Answer Date Recorded [place] Depression Scale Total 0 06/23/2023 The thought [...] No 04/30/2023 Does the household have a [facility] hospitall[facility] source of income? (Household - for ages [...] Priority Date/Time Associated Diagnosis Comments CHEMISTRY-OUTSIDE Routine 07/05/2023 URINALYSIS, REFLEX TO MICROSCOPIC Routine 07/05/2023 documented in this encounter Results * URINALYSIS, REFLEX TO MICROSCOPIC (07/05/2023) URINALYSIS NEG NEG OUTSIDE L AB (SEE SCANNED REPORT) Urine 07/05/2023 Miryam Mcmanus MD LAB URINE ORDERA BLES OUTSIDE LAB (SEE SCANNED REPORT) * CHEMISTRY-OUTSIDE (07/05/2023) Not all results display below - see scan for full detail OUTSIDE LAB (SEE SCANNED REPORT) CREATININE-OUTSID E LAB OUTSIDE LAB (SEE SCANNED REPORT) EGFR-OUTSIDE LAB OUT SIDE LAB (SEE SCANNED REPORT) POTASSIUM-OUTSIDE LAB OUTSIDE LAB (SEE SCANNED REPORT) GLUCOSE-OUTSIDE LAB OUTSIDE LAB (SEE SCANNED REPORT) HOURS FASTING [...] LAB OUTSIDE LAB (SEE SCANNED REPORT) HEMOGLOBIN, M7P-GFWUVUS LAB OUTSIDE LAB (SEE SCANNED REPORT) PHOSPHORUS-OUTSID E LAB OUTSIDE LAB (SEE SCANNED REPORT) PTH-OUTSIDE LAB OUTS GLENNY LAB (SEE SCANNED REPORT) MICROALBUMIN RATIO-OUTSIDE LAB OUTSIDE LA B (SEE SCANNED REPORT) PROTEIN, UA-OUTSIDE LAB OUTSIDE LAB (SEE SCANNED REPORT) HGB 12.2 12.0 - 15.0 G/DL OUTSIDE LAB (SEE SCANNED REPORT) 07/05/2023 Miryam Mcmanus MD LABORATORY OUTSIDE LAB (SEE SCANNED REPORT) documented in this encounter
--- OUTSIDE RECORDS SUMMARY | 2023-09-10 05:50 | External Medical Summary | Summary of Care ---
Author Name Unknown Organization [facility] Address [address] [place] [address] Phone [phone] Care Team Providers Care Child And Adolescent Psychiatrist Name Role Phone Unavailable Primary Care Provider Unavailabl e Reason for Visit * Reason Comments Return Visit Encounter Details Date Type Department Care Team (Late st Contact Info) Description 09/02/2023 10:45 AM EDT Office Visit Gynecology/Obstetric s [facility] [address] [place] [address] Deborah Coates CRNP [address] [place] [address] Normal in third trimester*; H/O section; Antepartum multigravida of advanced maternal age; Class 1 obesity due to excess calories without serious comorbidity in adult, unspecified BMI; History of hemorrhage; Diet controlled gestational diabetes mellitus (GDM) in third trimester Allergies Active Allergy Reactions Criticality Noted Date Comments Amoxicillin 04/11/2001 Day #8 documented as of this encounter (statuses as of 09/02/2023) Medications Medication Sig Dispensed Refills Start Date [...] before bedtime. 60 Tablet 3 06/23/2023 Active [employer] Verio Flex System w/Device KitIndications:Diet controlled gestational diabetes mellitus (GDM) in third trimester Use to test blood sugars 4 times daily (fasting, 1 hour after breakfast, lunch, and dinner) 1 Kit 06/25/2023 Active [employer] Verio In Vitro Strip (Glucose Blood)Indications:D iet controlled gestational diabetes mellitus (GDM) in third trimester Use to test blood sugars 4 times daily (fasting, 1 hour after breakfast, lunch, and dinner) 125 Strip 6 06/25/2023 Active [employer] Delica Lancets 30GIndications:Diet controlled gestational diabetes mellitus (GDM) in third trimester Use to test blood sugars 4 times daily (fasting, 1 hour after breakfast, lunch, and dinner) 200 Each 6 08/20/2023 Active documented as of this encounter (statuses as of 09/02/2023) Active Problems Problem Noted Date Diagnosed Date [...] MFM review; MFM anatomy Ultrasound scheduled 07/30/2023. 08/05/[id number]-nesfov. Few missed readings. 08/11/[id number]-GYO-ilsyqc. 08/17/23: RPM reviewed; overall Stable; some low fastings; encouraged a bedtime snack 08/25/[id number]-JUD-heytje overall (was out of strips so unable to test for a few days this week) 09/01/23: RPM reviewed; Stable Last Assessment & Plan: CONSIDERATIONS: Reviewed etiology [...] Recommend nutrition consult with RDN (Registered Dietitian Explosive Ordnance Disposal Specialist). Lifestyle changes are also indicated including optimizing [...] as of this encounter (statuses as of 09/02/2023) Resolved Problems Problem Noted Date Diagnosed Date [...] as of this encounter (statuses as of 09/02/2023) Immunizations Name Administration Dates Next Due DTWP [...] have money to get more. Patient declined [place] Depression Scale Answer Date Recorded [place] Depression Scale Total 0 06/23/2023 The thought [...] No 04/30/2023 Does the household have a [facility] source [facility] income? (Household - [...] Sign Reading Time Taken Comments Blood Pressure 122/86 09/02/2023 10:47 AM EDT Pulse - - Temperature - - Respiratory Rate - - Oxygen Saturation - - Inhaled Oxygen Concentration - - Weight 88.5 kg (195 lb) 09/02/2023 10:47 AM EDT Height 157.5 cm (5' 2") 09/02/2023 10:47 AM EDT Body Mass Index 35.67 09/02/2023 10:47 AM EDT documented in this encounter Progress Notes * Deborah Coates CRNP - 09/02/2023 11:01 AM EDT 38w Had contractions Wednesday for an hour. Called and was advised to hydrate and rest, they resolved. Nowfeeling pressure, but no regular contractions. Baby is active. Denies bleeding or LOF. Following with [facility] for GDM A1. Has repeat c/s 09/09. JARRELL Parra documented in this encounter Nursing Notes * Reanna Carvajal LPN - 09/02/2023 10:51 AM EDT 38w0d documented in this encounter Plan of Treatment Upcoming Encounters Date Type Department Care Team (Late st Contact Info) Description 09/17/2023 10:30 AM EDT [facility] [address] [place] [address] Libertad Hendrickson PA-C [address] [place] [address] Health Maintenance Due Date Last Done Comments [...] as of this encounter Visit Diagnoses Diagnosis Normal in third trimester- Primary H/O section Other postprocedural status Antepartum multigravida of advanced maternal age Class 1 obesity due to excess calories without serious comorbidity in adult, unspecified BMI History of hemorrhage Diet controlled gestational diabetes mellitus (GDM) in third trimester documented in this encounter
--- OUTSIDE RECORDS SUMMARY | 2023-09-10 05:50 | External Medical Summary ---
Author Name Unknown Address Unknown Organization K01:LAB[facility]ATORY [place] [address] [address] [place] [address] Laboratory Report Ordering Provider Test Date Status KIMBERLY BENJAMIN 08/26/2023 12:01:38 Final Observation Date Value Abnormality Reference (Units ) Status Streptococcus agalactiae DNA [Presence] in Specimen by MINE with probe detection 08/26/2023 12:01:38 Negative Negative Final No Group B Streptococcus det ected by culture-enhanced PCR (amplified probe). GBS GBSCT - [facility] 08/26/2023 12:01:38 0.0 Final GBS SPCCT - [facility] 08/26/2023 12:01:38 31.5 Final Performing Location [facility] [address] [place] [address]
--- OUTSIDE RECORDS SUMMARY | 2023-09-10 05:50 | External Medical Summary | Summary of Care ---
Author Name Unknown Organization [facility] Address [address] [place] [address] Phone [phone] Care Team Providers Care Overweaver Name Role Phone Unavailable Primary Care Provider Unavailabl e Reason for Visit * Reason Onset Date Comments Scheduling 08/05/2023 Encounter Details Date Type Department Care Team (Late st Contact Info) Description 08/05/2023 Telephone Gynecology/Obstetrics [facility] [address] [place] [address] Miryam Walter MD [address] [place] [address] Scheduling Allergies Active Allergy Reactions Criticality Noted Date Comments Amoxicillin 04/11/2001 Day #8 documented as of this encounter (statuses as of 08/10/2023) Medications Medication Sig Dispensed Refills Start Date [...] before bedtime. 60 Tablet 3 06/23/2023 Active [employer]Touch Verio Flex System w/Device KitIndications:Diet controlled gestational [...] and dinner) 125 Strip 6 06/25/2023 Active [employer] Delica Lancets 30GIndications:Diet controlled gestational diabetes mellitus (GDM) in third trimester Use to test blood sugars 4 times daily (fasting, 1 hour after breakfast, lunch, and dinner) 200 Each 6 06/25/2023 Active documented as of this encounter (statuses as of 08/10/2023) Active Problems Problem Noted Date Diagnosed Date [...] MFM review; MFM anatomy Ultrasound scheduled 07/30/2023. 08/05/[id number]-YAX-xqsaab. Few missed readings. Last Assessment & Plan: [...] Recommend nutrition consult with RDN (Registered Dietitian Feeder Associate). Lifestyle changes are also indicated including optimizing [...] as of this encounter (statuses as of 08/10/2023) Resolved Problems Problem Noted Date Diagnosed Date [...] as of this encounter (statuses as of 08/10/2023) Immunizations Name Administration Dates Next Due DTWP - Dipth/Tet/Whole Cell Pertussis 03/22/1988 ,01/25/1988 HPV Vaccine, 4-Valent 09/27/2006,05/28/2006,0210/2006 Hep A - Hepatitis A (ped/adole, 1-18 [...] have money to get more. Patient declined [place] Depression Scale Answer Date Recorded [place] Depression Scale Total 0 06/23/2023 The thought [...] 08/26/2023 11:15 AM EDT Office Visit Gynecology/Obstetrics [facility] [address] [place] [address] Montse Raza MD [address] [place] [address] [place] [address] 09/17/2023 10:30 AM EDT Office Visit Gynecology/Obstetrics [facility] [address] [place] [address] Libertad Hendrickson PA-C [address] [place] [address] Health Maintenance Due Date Last Done Comments HPV/Co-Test 11/16/2017 COVID-19 Vaccine (2022- season) 2022 Influenza Vaccine (FLU shot) (Season [...]
--- OUTSIDE RECORDS SUMMARY | 2023-09-10 05:50 | External Medical Summary | Summary of Care ---
Author Name Unknown Organization [facility] Address [address] [place] [address] Phone [phone] Care Team Providers Care Typing Secretary Name Role Phone Unavailable Primary Care Provider Unavailabl e Reason for Visit * Reason Onset Date Comments Scheduling 08/05/2023 Encounter Details Date Type Department Care Team (Late st Contact Info) Description 08/05/2023 Telephone Gynecology/Obstetrics [facility] [address] [place] [id number] Miryam Walter MD [address] [place] [phone] Scheduling Allergies Active Allergy Reactions Criticality Noted Date Comments Amoxicillin 04/11/2001 Day #8 documented as of this encounter (statuses as of 08/11/2023) Medications Medication Sig Dispensed Refills Start Date [...] before bedtime. 60 Tablet 3 06/23/2023 Active ComposerightTouch Verio Flex System w/Device KitIndications:Diet controlled gestational [...] and dinner) 125 Strip 6 06/25/2023 Active ComposerightTouch Delica Lancets 30GIndications:Diet controlled gestational diabetes mellitus (GDM) in third trimester Use to test blood sugars 4 times daily (fasting, 1 hour after breakfast, lunch, and dinner) 200 Each 6 06/25/2023 Active documented as of this encounter (statuses as of 08/11/2023) Active Problems Problem Noted Date Diagnosed Date [...] MFM review; MFM anatomy Ultrasound scheduled 07/30/2023. 08/05/[id number]. Few missed readings. 08/11/[id number]. Last Assessment & Plan: CONSIDERATIONS: Reviewed etiology [...] Recommend nutrition consult with RDN (Registered Dietitian Chief Controller). Lifestyle changes are also indicated including optimizing [...] as of this encounter (statuses as of 08/11/2023) Resolved Problems Problem Noted Date Diagnosed Date [...] as of this encounter (statuses as of 08/11/2023) Immunizations Name Administration Dates Next Due DTWP [...] have money to get more. Patient declined Tecumseh Depression Scale Answer Date Recorded T[place]umseh Depression Scale Total 0 06/23/2023 The thought [...] 08/26/2023 11:15 AM EDT Office Visit Gynecology/Obstetrics [facility] [address] [place] [phone] Montse Raza MD [address] [place] [address] [place] [phone] 09/17/2023 10:30 AM EDT Office Visit Gynecology/Obstetrics [facility] [address] [place] [phone] Libertad Hendrickson PA-C [address] [place] [phone] Health Maintenance Due Date Last Done Comments [...]
[2023-09-10] MEDS ORDERED: SODIUM CHLORIDE 0.9% 250 ML IV PRN (05:56)
[2023-09-10 06:15] LABS: Hematocrit (blood only) 34.6 % (37.0-47.0); Mean Corpuscular Hemoglobin 32.8 pg (25.0-34.0); Mean Corpuscular Hgb Conc 34.7 g/dL (32.0-36.0); Mean Corpuscular Volume 94.5 fL (80.0-100.0); Mean Platelet Volume 10.9 fL (9.4-12.4); Platelet Count 192 K/uL (130-400); RDW Coefficient of Variation 12.9 % (11.5-14.5); Red Blood Count 3.66 M/uL (4.20-5.40); White Blood Count 9.07 K/ul (4.8-10.8)
[2023-09-10] MEDS: LACTATED RINGER'S 1,000 ML IV SCH (06:30)
[2023-09-10] MEDS ORDERED: MoRPHine SULFATE PF 1 MG/ML 10 ML AMP/VIAL ONE (06:54)
[2023-09-10] MEDS ORDERED: DEXAMETHASONE SOD INJ 4 MG/ML VIAL ONE (06:54)
[2023-09-10] MEDS ORDERED: ONDANSETRON INJ 2 MG/ML 2 ML VIAL ONE (06:54)
[2023-09-10] MEDS ORDERED: fentaNYL citrate PF 100 MCG/2 ML VIAL ONE (06:54)
[2023-09-10] MEDS ORDERED: OXYTOCIN 10 UNITS/ML VIAL ONE (06:54)
[2023-09-10] MEDS ORDERED: PHENYLEPHRINE 100MCG/ML 10ML SYR IV ONE (06:54)
[2023-09-10] MEDS ORDERED: KETOROLAC 30 MG/ML VIAL ONE (06:54)
--- NOTE | 2023-09-10 07:30 | History & Physical Bridge Note ---
Date of Service September 10, 2023 History & Physical Bridge Note I have examined the patient, reviewed the History & Physical and in the interval since the performance of the History & Physical I have noted the following changes of clinical significance: no changes noted
[2023-09-10] MEDS: ceFAZolin 2000MG 2,000 MG/15 ML SYR IV ONE (07:44)
[2023-09-10] MEDS: CITRIC ACID/SODIUM CITRATE 15 ML UDC PO SCH (07:44)
[2023-09-10] MEDS ORDERED: NALOXONE HCL 1 MG in SODIUM CHLORIDE 0.9% 1,000 ML IV PRN (08:24)
[2023-09-10] MEDS ORDERED: NALOXONE HCL 0.4 MG/1 ML VIAL/CARP IV PRN (08:24)
[2023-09-10] MEDS ORDERED: diphenhydrAMINE 50 MG/ML VIAL IV PRN (08:24)
[2023-09-10] MEDS ORDERED: NALOXONE HCL 0.08 MG in SYRINGE 1.8 ML IV PRN (08:24)
[2023-09-10] MEDS ORDERED: ePHEDrine sulfate 50 MG/ML AMP IV PRN (08:24)
[2023-09-10] MEDS ORDERED: NALBUPHINE HCL 5 MG in SYRINGE 0 ML IV PRN (08:24)
[2023-09-10] MEDS ORDERED: ONDANSETRON INJ 2 MG/ML 2 ML VIAL IV PRN (08:24)
[2023-09-10] MEDS ORDERED: LACTATED RINGER'S 500 ML IV PRN (08:24)
[2023-09-10] MEDS ORDERED: PROMETHAZINE HCL 6.25 MG in SODIUM CHLORIDE 0.9% 50 ML IV PRN (08:24)
[2023-09-10] MEDS ORDERED: HYDROmorphone INJ 0.5 MG/0.5 ML SYR IV PRN (08:24)
[2023-09-10] MEDS ORDERED: DC INTRASPINAL MORPHINE SCH (08:30)
[2023-09-10] MEDS ORDERED: NO NARCOTICS OR SEDATIVES SCH (08:30)
[2023-09-10] MEDS ORDERED: SENNA 8.6 MG TAB PO PRN (09:05)
[2023-09-10] MEDS ORDERED: MAGNESIUM HYDROXIDE SUSP 30 ML UDC PO PRN (09:05)
[2023-09-10] MEDS ORDERED: BENZOCAINE 20% SPRY 85 APPLN/85 GM CAN EXT PRN (09:05)
[2023-09-10] MEDS ORDERED: HYDROCORTISONE ACETATE 25 MG SUPP PR PRN (09:05)
--- NOTE | 2023-09-10 09:09 | Operative Report ---
Post Operative Report Pre & Post Diagnosis Operation Date: 09/10/23 07:30 Pre-Op Diagnosis: Previous Section Post-Op Diagnosis: Previous Section I identified the patient and participated in the time-out.: Yes Procedure Operation Date: 09/10/23 07:30 Actual Procedures p Repeat Section delivery of live male child at 0818 - Miryam Mcmanus MD Surgeon Miryam Lennon MD Data Migration Lead [place] Estimated Blood Loss 403 Findings Consistent with Post-Op Diagnosis Baby was a viable male infant delivered at 8:18 AM in cephalic presentation, Apgars 9/9 weight is 4045 gr Maternal findings; normal uterus, fallopian tubes and ovaries Specimens Cord blood and placenta Drains Luong catheter drained 250 mL of clear urine Anesthesia Type Spinal Complications none Disposition Accompanied Patient To Recovery: Yes Indications patient is a 37-year-old -0-0-1 at 39 weeks and 1 day gestation with history of prior , desires repeat declines TOLAC/ Description of Procedure Patient was taken to operating room where a spinal anesthesia was given without difficulty. She was placed in dorsal supine position with a leftward tilt. She was prepared and draped in usual sterile fashion. A financial skin incision was made and carried through to the underlying layer of fascia with the Bovie. Fascia was incised in the midline and incision was extended laterally with the help of Hardwick scissors. Then the upper aspect of the fascial incision was grasped with 2 Breanne clamps elevated the underlying rectus muscles were dissected off sharply with Hardwick scissors. Same thing was done on the lower incision. Then the muscles were in the midline, peritoneum was identified grasped with 2 pickups and entered sharply with Metzenbaum scissors. Peritoneal incision was extended superior and inferiorly with good visualization of the bladder. The bladder blade was inserted. Vesicouterine peritoneum was identified, grasped with pickups and entered sharply with Metzenbaum scissors, bladder flap was created digitally and bladder blade was reinserted. Uterus was incised in transverse fashion, incision was extended laterally, membranes were ruptured and clear fluid was obtained. Baby's head was delivered without difficulty, followed by shoulders and body with minimal traction without faculty. Mouth and nose were suctioned there was dried on the field he was vigorously crying and moving. The cord was clamped times and cut at 1 minute delay and then the infant was handed off to the pediatric team. Then the placenta was delivered manually as intact and complete. Uterus was externalized and cleared of all clots and debris's. Uterine incision was repaired with 0 Vicryl in a running locked fashion, second umbricating layer was placed with the same suture in running locked fashion. Excellent hemostasis achieved. Cul-de-sac and the pelvis was irrigated with warm normal saline and suctioned. Incision was checked of anesthetic again. Uterus was returned to the abdomen, parietal peritoneum was reapproximated with 3-0 Vicryl in a running fashion and the muscles were reapproximated in the same suture in a running fashion. All of the fascia and rectus muscles were hemostatic. Rectus fascia was reapproximated with 0 Vicryl starting from both columns meeting in the midline. Subcuticular fat tissue was brought together with 2-0 Vicryl in a running fashion, skin was closed with 4-0 Monocryl in a subcuticular cuticular fashion. The mom and baby tolerated procedure well. Sponge needle instrument count was correct x3. she was given 2 g of cefazolin before surgery. No complications happened, I was present during whole procedure. My safety admin assistant was needed for retraction, hemostasis and aid during delivery of infant I attest to the content of the Intraoperative Record and any orders documented therein. Any exceptions are noted below.
[2023-09-10] MEDS ORDERED: LACTATED RINGER'S 1,000 ML IV SCH (09:15)
--- NOTE | 2023-09-10 09:21 | Anesthesiology Progress Note ---
Date of Service September 10, 2023 Anesthesia Post Procedure Vital Signs Vital Signs: Temp Pulse Resp BP Pulse Ox O2 Del Method 09/10/23 09:16 72 98 09/10/23 09:13 79 93 09/10/23 09:11 72 98 09/10/23 09:06 98 09/10/23 09:06 68 09/10/23 09:06 69 115/65 09/10/23 06:58 36.9 C 90 18 127/90 09/10/23 05:59 36.9 C 18 Room Air 09/10/23 05:54 36.9 C 94 H 18 130/79 Transfer of Care Handoff Completed per policy Notes Mental Status: alert / awake / arousable and participated in evaluation Patient Amnestic to Procedure: No Nausea / Vomiting: adequately controlled Pain: adequately controlled Airway Patency, RR, SpO2: stable & adequate BP & HR: stable & adequate Hydration State: stable & adequate Neuraxial Anesthesia: was administered and sensory block is resolving Anesthetic Complications: no major complications apparent and Pt Satisfied with anesthetic care
[2023-09-10] MEDS: OXYTOCIN 20 UNITS/LR 1,002 ML IV SCH (10:53)
[2023-09-10] MEDS: METHYLERGONOVINE MALEATE 0.2 MG/ML AMP ONE (11:04)
[2023-09-10] MEDS: SIMETHICONE 80 MG CHEW PO SCH (13:13)
--- NOTE | 2023-09-10 15:15 | Obstetrical Progress Note ---
Date of Service September 10, 2023 Assessment & Plan Admission and Anticipated Discharge Date Admission Date: September 10, 2023 Subjective Postop check Patient is seen and examined Feels well, no complaints Pain is under control with meds No CP/ SOB/ Dizziness/ N&V/ VB/ Leg pain Not OOB yet Tolerating clears Explained about the surgery and findings Vital Signs Height Weight Body Mass Index Blood Pressure Blood Pressure Position Temperature Temperature Source 5 ft 2 in 88.451 kg 35.6 118/72 Semi-fowlers 36.7 C Oral 09/10/23 07:06 09/10/23 07:06 09/10/23 05:59 09/10/23 11:55 09/10/23 11:55 09/10/23 11:55 09/10/23 11:55 Pulse Rate Respiratory Rate Pulse Oximetry 68 16 99 09/10/23 11:55 09/10/23 14:18 09/10/23 14:18 PE: General: Alert, orientedx3, NAD CVS: S1S2 RRR Lungs: CTAB Abd: soft, NT, ND, BS+, DressingC/D/I, fundus firm, below U Minimal VB Ext: NT, no edema, SCD's on AP: 37 yo female s/p RCS , pod#0 VSS Afebrile doing well, QBL: 403, lost more in recovery, h/o hemorrhage Plan to have CBC, coags Continue to monitor closely Results & Data Vital Signs (Past 12 Hours) Vital Signs Temp Pulse Pulse Resp BP BP Pulse Ox 09/10/23 14:18 16 99 09/10/23 13:00 16 99 09/10/23 11:55 36.7 C 68 18 118/72 97 09/10/23 11:55 18 97 09/10/23 11:36 96 09/10/23 11:36 72 09/10/23 11:36 74 94 09/10/23 11:35 74 114/69 09/10/23 11:31 73 98 09/10/23 11:26 74 96 09/10/23 11:25 74 120/71 09/10/23 11:21 74 100 09/10/23 11:19 86 93 09/10/23 11:16 73 97 09/10/23 11:15 75 114/71 09/10/23 11:11 72 98 09/10/23 11:06 98 09/10/23 11:06 79 09/10/23 11:06 83 93 09/10/23 11:05 78 18 113/70 93 09/10/23 11:05 78 113/70 09/10/23 11:01 76 99 09/10/23 10:56 97 09/10/23 10:56 79 09/10/23 10:56 80 112/63 09/10/23 10:51 81 98 09/10/23 10:47 83 93 09/10/23 10:46 77 98 09/10/23 10:45 70 121/68 09/10/23 10:41 73 96 09/10/23 10:40 78 93 09/10/23 10:39 68 119/69 09/10/23 10:36 74 98 09/10/23 10:35 71 16 116/66 98 09/10/23 10:35 71 116/66 09/10/23 10:31 98 09/10/23 10:31 72 09/10/23 10:31 79 91 09/10/23 10:26 70 99 09/10/23 10:25 73 111/62 09/10/23 10:21 67 98 09/10/23 10:17 72 93 09/10/23 10:16 68 97 09/10/23 10:15 73 117/64 09/10/23 10:12 73 89 L 09/10/23 10:11 73 95 09/10/23 10:06 72 97 09/10/23 10:05 80 16 127/88 98 09/10/23 10:05 80 127/88 91 09/10/23 10:01 83 97 09/10/23 09:56 98 09/10/23 09:56 79 09/10/23 09:56 78 127/87 09/10/23 09:55 78 16 127/87 97 09/10/23 09:51 78 99 09/10/23 09:46 69 100 09/10/23 09:45 80 18 114/75 99 09/10/23 09:45 81 114/75 09/10/23 09:41 69 99 09/10/23 09:37 79 88 L 09/10/23 09:36 77 98 09/10/23 09:35 70 16 110/71 98 09/10/23 09:35 70 110/71 09/10/23 09:31 87 98 09/10/23 09:26 79 97 09/10/23 09:25 77 16 113/74 97 09/10/23 09:25 77 113/74 09/10/23 09:21 83 97 09/10/23 09:16 72 98 09/10/23 09:15 72 16 96 09/10/23 09:13 79 93 09/10/23 09:11 72 98 09/10/23 09:06 98 09/10/23 09:06 68 09/10/23 09:06 69 115/65 09/10/23 09:05 36.6 C 16 115/64 98 09/10/23 06:58 36.9 C 90 18 127/90 09/10/23 05:59 36.9 C 18 09/10/23 05:54 36.9 C 94 H 18 130/79 O2 Del Method 09/10/23 14:18 09/10/23 13:00 09/10/23 11:55 Room Air 09/10/23 11:55 09/10/23 11:36 09/10/23 11:36 09/10/23 11:36 09/10/23 11:35 09/10/23 11:31 09/10/23 11:26 09/10/23 11:25 09/10/23 11:21 09/10/23 11:19 09/10/23 11:16 09/10/23 11:15 09/10/23 11:11 09/10/23 11:06 09/10/23 11:06 09/10/23 11:06 09/10/23 11:05 09/10/23 11:05 09/10/23 11:01 09/10/23 10:56 09/10/23 10:56 09/10/23 10:56 09/10/23 10:51 09/10/23 10:47 09/10/23 10:46 09/10/23 10:45 09/10/23 10:41 09/10/23 10:40 09/10/23 10:39 09/10/23 10:36 09/10/23 10:35 09/10/23 10:35 09/10/23 10:31 09/10/23 10:31 09/10/23 10:31 09/10/23 10:26 09/10/23 10:25 09/10/23 10:21 09/10/23 10:17 09/10/23 10:16 09/10/23 10:15 09/10/23 10:12 09/10/23 10:11 09/10/23 10:06 09/10/23 10:05 09/10/23 10:05 09/10/23 10:01 09/10/23 09:56 09/10/23 09:56 09/10/23 09:56 09/10/23 09:55 09/10/23 09:51 09/10/23 09:46 09/10/23 09:45 09/10/23 09:45 09/10/23 09:41 09/10/23 09:37 09/10/23 09:36 09/10/23 09:35 09/10/23 09:35 09/10/23 09:31 09/10/23 09:26 09/10/23 09:25 09/10/23 09:25 09/10/23 09:21 09/10/23 09:16 09/10/23 09:15 09/10/23 09:13 09/10/23 09:11 09/10/23 09:06 09/10/23 09:06 09/10/23 09:06 09/10/23 09:05 09/10/23 06:58 09/10/23 05:59 Room Air 09/10/23 05:54
[2023-09-10 15:37] LABS: Hematocrit (blood only) 32.9 % (37.0-47.0); Hemoglobin 11.4 g/dl (12.0-16.0); Mean Corpuscular Hemoglobin 33.7 pg (25.0-34.0); Mean Corpuscular Hgb Conc 34.7 g/dL (32.0-36.0); Mean Corpuscular Volume 97.3 fL (80.0-100.0); Mean Platelet Volume 11.1 fL (9.4-12.4); Platelet Count 200 K/uL (130-400); RDW Coefficient of Variation 12.9 % (11.5-14.5); RDW Standard Deviation 45.4 fL (36.4-46.3); Red Blood Count 3.38 M/uL (4.20-5.40); White Blood Count 15.42 K/ul (4.8-10.8)
[2023-09-10 17:14] LABS: Basophils # (auto) 0.03 K/uL (0.00-0.20); Basophils % (auto) 0.2 %; Immature Granulocytes # (auto) 0.06 K/uL (0.01-0.20); Immature Granulocytes % (auto) 0.4 %; Lymphocytes # (auto) 0.71 K/uL (1.20-3.40); Lymphocytes % (auto) 4.6 %; Monocytes % (auto) 3.9 %; Neutrophils # (auto) 14.02 K/uL (1.40-6.50); Neutrophils % (auto) 90.9 %; Polychromasia 1+
[2023-09-10 17:24] LABS: INR 0.9 (0.9-1.1); Prothrombin Time 10.1 Seconds (9.0-12.0)
[2023-09-10 17:25] LABS: Partial Thromboplastin Ratio 0.9; Partial Thromboplastin Time 25 Seconds (21-31)
[2023-09-10] MEDS: METHYLERGONOVINE MALEATE 0.2 MG TAB PO SCH (17:55)
[2023-09-10] MEDS: KETOROLAC 30 MG/ML VIAL IV PRN (19:23)
[2023-09-10] MEDS: DOCUSATE SODIUM 100 MG CAP PO SCH (20:58)
[2023-09-10 22:02] LABS: Fibrinogen 477 mg/dl (184-400)
[2023-09-11] MEDS ORDERED: diphenhydrAMINE Capsule 25 MG CAP PO PRN (02:25)
[2023-09-11] MEDS ORDERED: MEPERIDINE HCL 50 MG/ML CARP IV PRN (02:25)
[2023-09-11] MEDS ORDERED: diphenhydrAMINE 50 MG/ML VIAL IV PRN (02:25)
[2023-09-11] MEDS ORDERED: ONDANSETRON INJ 2 MG/ML 2 ML VIAL IV PRN (02:25)
[2023-09-11] MEDS ORDERED: KETOROLAC 30 MG/ML VIAL IV PRN (02:25)
[2023-09-11] MEDS ORDERED: PROMETHAZINE HCL 25 MG in SODIUM CHLORIDE 0.9% 50 ML IV PRN (02:25)
[2023-09-11 06:57] LABS: Basophils # (auto) 0.05 K/uL (0.00-0.20); Basophils % (auto) 0.4 %; Eosinophils # (auto) 0.09 K/uL (0.00-0.50); Eosinophils % (auto) 0.6 %; Hematocrit (blood only) 30.2 % (37.0-47.0); Hemoglobin 10.4 g/dl (12.0-16.0); Immature Granulocytes # (auto) 0.07 K/uL (0.01-0.20); Immature Granulocytes % (auto) 0.5 %; Lymphocytes # (auto) 1.65 K/uL (1.20-3.40); Lymphocytes % (auto) 11.7 %; Mean Corpuscular Hemoglobin 33.7 pg (25.0-34.0); Mean Corpuscular Hgb Conc 34.4 g/dL (32.0-36.0); Mean Corpuscular Volume 97.7 fL (80.0-100.0); Mean Platelet Volume 10.8 fL (9.4-12.4); Monocytes # (auto) 0.98 K/uL (0.11-0.59); Neutrophils # (auto) 11.26 K/uL (1.40-6.50); Neutrophils % (auto) 79.8 %; Platelet Count 181 K/uL (130-400); RDW Standard Deviation 45.2 fL (36.4-46.3); Red Blood Count 3.09 M/uL (4.20-5.40)
[2023-09-11] MEDS: PRENATAL VITAMIN 1 TAB PO SCH (08:46)
[2023-09-11] MEDS: FERROUS SULFATE 325 MG TAB PO SCH (08:46)
[2023-09-11] MEDS: oxyCODONE/ACETAMINOPHEN 5mg/325mg TAB PO PRN (08:46)
[2023-09-11] MEDS: IBUPROFEN 600 MG TAB PO PRN (08:47)
--- NOTE | 2023-09-11 09:26 | Obstetrical Progress Note ---
Date of Service September 11, 2023 Assessment & Plan Admission and Anticipated Discharge Date Admission Date: September 10, 2023 OB Progress Note abdomen soft and non tender passing gas incision is clean and dry bandage removed no calf tenderness ambulating well bleeding scant hgb 10.4 Results & Data Vital Signs (Past 12 Hours) Vital Signs Temp Pulse Resp BP Pulse Ox O2 Del Method 09/11/23 03:25 36.9 C 78 18 100/66 98 Room Air 09/11/23 02:25 18 99 09/11/23 01:58 16 96 09/11/23 01:07 18 95 09/10/23 23:58 16 97 09/10/23 22:57 18 99 09/10/23 22:53 36.8 C 92 H 18 125/78 100 Room Air 09/10/23 22:05 16 96
[2023-09-11] MEDS: bisacodyL 5 MG TABEC PO SCH (19:31)
[2023-09-12 07:08] LABS: Hematocrit (blood only) 27.1 % (37.0-47.0); Hemoglobin 9.2 g/dl (12.0-16.0)
[2023-09-12] MEDS: DIPHTHER/TETAN/PERTUS Vaccine (Tdap, Adol/Adult) 0.5mL IM ONE (07:31)
[2023-09-12] MEDS: GELATIN SPONGE SZ 100 EXT ONE (07:31)
[2023-09-12] MEDS: SODIUM CHLORIDE 0.9% 1,000 ML IV SCH (07:31)
[2023-09-12] MEDS: MoRPHine SULFATE PF 1 MG/ML 10 ML AMP/VIAL INT SPINAL ONE (07:31)
[2023-09-12] MEDS: CLINDAMYCIN/D5W 900 MG/50 ML BAG IV SCH (07:31)
[2023-09-12] MEDS: GELATIN SPONGE SZ 100 ONE (07:32)
[2023-09-12] MEDS ORDERED: bisacodyL 10 MG SUPP PR PRN (09:05)
--- NOTE | 2023-09-12 09:24 | Obstetrical Progress Note ---
Date of Service September 12, 2023 Assessment & Plan Admission and Anticipated Discharge Date Admission Date: September 10, 2023 OB Progress Note abdomen soft and non tender incision is clean and dry no calf tenderness ambulating well vaginal bleeding scant hgb 9.2 Results & Data Vital Signs (Past 12 Hours) Vital Signs Temp Pulse Resp BP Pulse Ox O2 Del Method 09/12/23 07:45 36.5 C 86 20 103/70 100 Room Air 09/12/23 00:11 36.5 C 78 18 120/82 99 Room Air
--- NOTE | 2023-09-12 09:33 | Discharge Summary ---
Date of Service September 12, 2023 Discharge Data Consultations 09/10/23 05:34 Consult Anesthesiology Stat Procedures Performed Operation Date: 09/10/23 07:30 Actual Procedures p Repeat Section delivery of live male child at 0818 - Miryam Mcmanus MD [facility] Course (1) Status post repeat low transverse section: Plan Patient is a 3 para 2 admitted at 40 weeks gestation for repeat section. Day of admission patient underwent repeat section under spinal anesthesia. She received prophylactic antibiotics. She had a smooth postoperative course. She remained afebrile throughout her whole postoperative course at the time of discharge she was ambulating well eating well pain was well-controlled. She was given prescriptions for Percocet. And instructions to return to the office in 3 weeks for checkup. Call if she had a temp over 100 or any heavy bleeding bleeding .
== END 2023-09-12 10:50 | disposition home or self-care (01) | DRG 788 ==
LOC: 4S1 05:41 → EDSTATUS 07:30 → 4E2 11:45